=== PATIENT | male | born 1950 | race Caucasian/White ===

== ENCOUNTER 2019-06-22 10:25 | Emergency (ER) | payer MEDICARE, BC ==
[2019-06-22 10:47] VITALS: TEMP 98.1
--- NOTE | 2019-06-22 11:05 | ED ---
Abdominal Pain HPI - General Chief Complaint: Abdominal Pain Stated Complaint: abdominal pain Time Seen by Provider: 06/22/19 10:50 Source: patient, RN notes reviewed Mode of arrival: ambulatory Limitations: no limitations - History of Present Illness Initial Comments: This is a 61-year-old male with a prior history kidney stones who states she's had intermittent episodes of right-sided flank and back pain recently but started getting really severe yesterday. States it was sharp in nature right flank is as well as right lower quadrant and right sided back pain 5-6/10 severity currently is very minimal. He denies any fevers chills nausea vomiting sweats no diarrhea no dysuria no hematuria. He believes it may be similar to his previous kidney stone episodes. No trauma reported. No other modifying factors at this time MD Complaint: abdominal pain, flank pain - Related Data Previous Rx's Medication Instructions Recorded Ibuprofen 800 mg PO Q6HR PRN #20 tablet 06/22/19 Tamsulosin [Flomax] 0.4 mg PO DAILY #7 cap 06/22/19 Allergies Allergy/AdvReac Type Severity Reaction Status Date / Time No Known Allergies Allergy Verified 06/22/19 10:47 Review of Systems ROS Statement: Those systems with pertinent positive or pertinent negative responses have been documented in the HPI. ROS Other: All systems not noted in ROS Statement are negative. Past Medical History Past Medical History: Asthma History of Any Multi-Drug Resistant Organisms: None Reported Past Surgical History: No Surgical Hx Reported Past Psychological History: No Psychological Hx Reported Smoking Status: Former smoker Past Alcohol Use History: None Reported Past Drug Use History: None Reported General Exam - General Exam Comments Initial Comments: This is a well-developed well-nourished awake alert oriented times 3 male Limitations: no limitations General appearance: alert, in no apparent distress Head exam: Present: atraumatic, normocephalic, normal inspection Eye exam: Present: normal appearance, PERRL, EOMI. Absent: scleral icterus, conjunctival injection, periorbital swelling ENT exam: Present: normal exam, mucous membranes moist Neck exam: Present: normal inspection. Absent: tenderness, meningismus, lymphadenopathy Respiratory exam: Present: normal lung sounds bilaterally. Absent: respiratory distress, wheezes, rales, rhonchi, stridor Cardiovascular Exam: Present: regular rate, normal rhythm, normal heart sounds. Absent: systolic murmur, diastolic murmur, rubs, gallop, clicks GI/Abdominal exam: Present: soft, normal bowel sounds. Absent: distended, tenderness, guarding, rebound, rigid, bruit, pulsatile mass, hernia Extremities exam: Present: normal inspection, full ROM, normal capillary refill. Absent: tenderness, pedal edema, joint swelling, calf tenderness Back exam: Present: normal inspection Neurological exam: Present: alert, oriented X3, CN II-XII intact Psychiatric exam: Present: normal affect, normal mood Skin exam: Present: warm, dry, intact, normal color. Absent: rash Course Vital Signs 06/22/19 06/22/19 10:45 12:22 Temperature 98.1 F Pulse Rate 86 67 Respiratory 20 16 Rate Blood Pressure 166/97 146/87 O2 Sat by Pulse 99 99 Oximetry Medical Decision Making - Medical Decision Making Patient remains pain-free at this time I did discuss case with him and also with Dr. Lawrence. Patient will follow-up with urology this week to be discharged after an appointment is set up. The patient is in agreement with this. - Lab Data Result diagrams: 06/22/19 11:04 06/22/19 11:04 Lab Results 06/22/19 06/22/19 06/22/19 Range/Units 11:04 11:04 11:04 WBC 7.9 (3.8-10.6) k/uL RBC 5.18 (4.30-5.90) m/uL Hgb 15.7 (13.0-17.5) gm/dL Hct 48.4 (39.0-53.0) % MCV 93.3 (80.0-100.0) fL MCH 30.4 (25.0-35.0) pg MCHC 32.6 (31.0-37.0) g/dL RDW 12.5 (11.5-15.5) % Plt Count 268 (150-450) k/uL Neutrophils % 63 % Lymphocytes % 25 % Monocytes % 7 % Eosinophils % 2 % Basophils % 1 % Neutrophils # 5.0 (1.3-7.7) k/uL Lymphocytes # 2.0 (1.0-4.8) k/uL Monocytes # 0.5 (0-1.0) k/uL Eosinophils # 0.1 (0-0.7) k/uL Basophils # 0.1 (0-0.2) k/uL Sodium 137 (137-145) mmol/L Potassium 4.3 (3.5-5.1) mmol/L Chloride 105 (98-107) mmol/L Carbon Dioxide 25 (22-30) mmol/L Anion Gap 7 mmol/L BUN 9 (9-20) mg/dL Creatinine 0.62 L (0.66-1.25) mg/dL Est GFR (CKD-EPI)AfAm >90 (>60 ml/min/1.73 sqM) Est GFR (CKD-EPI)NonAf >90 (>60 ml/min/1.73 sqM) Glucose 96 (74-99) mg/dL Plasma Lactic Acid Jose (0.7-2.0) mmol/L Calcium 9.5 (8.4-10.2) mg/dL Total Bilirubin 0.7 (0.2-1.3) mg/dL AST 24 (17-59) U/L ALT 12 (4-49) U/L Alkaline Phosphatase 114 (38-126) U/L Creatine Kinase 86 (55-170) U/L Total Protein 7.5 (6.3-8.2) g/dL Albumin 4.3 (3.5-5.0) g/dL Amylase 68 (30-110) U/L Lipase 61 (23-300) U/L Urine Color Light Yellow Urine Appearance Clear (Clear) Urine pH 7.0 (5.0-8.0) Ur Specific [place] 1.003 (1.001-1.035) Urine Protein Negative (Negative) Urine Glucose (UA) Negative (Negative) Urine Ketones Negative (Negative) Urine Blood Large H (Negative) Urine Nitrite Negative (Negative) Urine Bilirubin Negative (Negative) Urine Urobilinogen <2.0 (<2.0) mg/dL Ur Leukocyte Esterase Negative (Negative) Urine RBC 2 (0-5) /hpf Urine WBC 2 (0-5) /hpf Ur Squamous Epith Cells <1 (0-4) /hpf 06/22/19 Range/Units 11:04 WBC (3.8-10.6) k/uL RBC (4.30-5.90) m/uL Hgb (13.0-17.5) gm/dL Hct (39.0-53.0) % MCV (80.0-100.0) fL MCH (25.0-35.0) pg MCHC (31.0-37.0) g/dL RDW (11.5-15.5) % Plt Count (150-450) k/uL Neutrophils % % Lymphocytes % % Monocytes % % Eosinophils % % Basophils % % Neutrophils # (1.3-7.7) k/uL Lymphocytes # (1.0-4.8) k/uL Monocytes # (0-1.0) k/uL Eosinophils # (0-0.7) k/uL Basophils # (0-0.2) k/uL Sodium (137-145) mmol/L Potassium (3.5-5.1) mmol/L Chloride (98-107) mmol/L Carbon Dioxide (22-30) mmol/L Anion Gap mmol/L BUN (9-20) mg/dL Creatinine (0.66-1.25) mg/dL Est GFR (CKD-EPI)AfAm (>60 ml/min/1.73 sqM) Est GFR (CKD-EPI)NonAf (>60 ml/min/1.73 sqM) Glucose (74-99) mg/dL Plasma Lactic Acid Jose 1.0 (0.7-2.0) mmol/L Calcium (8.4-10.2) mg/dL Total Bilirubin (0.2-1.3) mg/dL AST (17-59) U/L ALT (4-49) U/L Alkaline Phosphatase (38-126) U/L Creatine Kinase (55-170) U/L Total Protein (6.3-8.2) g/dL Albumin (3.5-5.0) g/dL Amylase (30-110) U/L Lipase (23-300) U/L Urine Color Urine Appearance (Clear) Urine pH (5.0-8.0) Ur Specific [place] (1.001-1.035) Urine Protein (Negative) Urine Glucose (UA) (Negative) Urine Ketones (Negative) Urine Blood (Negative) Urine Nitrite (Negative) Urine Bilirubin (Negative) Urine Urobilinogen (<2.0) mg/dL Ur Leukocyte Esterase (Negative) Urine RBC (0-5) /hpf Urine WBC (0-5) /hpf Ur Squamous Epith Cells (0-4) /hpf - Radiology Data Radiology results: report reviewed (I did review the imaging and report evidence of 1.3 cm calculus in the renal pelvis with evidence of obstruction and hydronephrosis some stranding noted. Evidence of kidney stones in the bladder), image reviewed Disposition Clinical Impression: Kidney stone on right side, Renal colic on right side, Hematuria Disposition: HOME SELF-CARE Condition: Good Instructions (If sedation given, give patient instructions): Kidney Stones (ED), Flank Pain (ED), Renal Colic (ED) Additional Instructions: Follow-up with Dr. Lawrence as directed. Medication prescriptions sent to your preferred [facility] pharmacy Prescriptions: Tamsulosin [Flomax] 0.4 mg PO DAILY #7 cap Ibuprofen 800 mg PO Q6HR PRN #20 tablet PRN Reason: Pain Is patient prescribed a controlled substance at d/c from ED?: No Referrals: None,Stated [REFERRING] - 1-2 days Foster Lawrence MD [STAFF PHYSICIAN] - 1-2 days
[2019-06-22 11:43] LABS: Appearance,Urine Clear (Clear); Bilirubin,Urine Negative (Negative); Blood,Urine Large (Negative); Color,Urine Light Yellow; Glucose,Urine (UA) Negative (Negative); Ketones,Urine Negative (Negative); Leukocyte Esterase,Urine Negative (Negative); Nitrite,Urine Negative (Negative); Protein,Urine Negative (Negative); RBC,Urine 2 /hpf (0-5); Specific Gravity,Urine 1.003 (1.001-1.035); Squamous Epithelial Cell,Urine <1 /hpf (0-4); Urobilinogen,Urine <2.0 mg/dL (<2.0); WBC,Urine 2 /hpf (0-5)
[2019-06-22 11:45] LABS: Basophils # (A) 0.1 k/uL (0-0.2); Basophils % (A) 1 %; Eosinophils # (A) 0.1 k/uL (0-0.7); Eosinophils % (A) 2 %; HCT 48.4 % (39.0-53.0); HGB 15.7 gm/dL (13.0-17.5); Lymphocytes % (A) 25 %; MCH 30.4 pg (25.0-35.0); MCHC 32.6 g/dL (31.0-37.0); MCV 93.3 fL (80.0-100.0); Mean Platelet Volume 7.4; Monocytes # (A) 0.5 k/uL (0-1.0); Monocytes % (A) 7 %; Neutrophils % (A) 63 %; Platelet Count 268 k/uL (150-450); RBC 5.18 m/uL (4.30-5.90); RDW 12.5 % (11.5-15.5); WBC 7.9 k/uL (3.8-10.6)
--- NOTE | 2019-06-22 11:50 | CT ---
EXAMINATION TYPE: CT abdomen pelvis wo con DATE OF EXAM: 06/22/2019 COMPARISON: None HISTORY: Flank pain, kidney stone suspected CT DLP: 791 mGycm Automated exposure control for dose reduction was used. TECHNIQUE: Helical acquisition of images was performed from the lung bases through the pelvis. FINDINGS: LUNG BASES: Subpleural linear reticular opacities are likely on the basis of subsegmental atelectasis . LIVER/GB: Unremarkable unenhanced morphology. No radiopaque calculi in the gallbladder. PANCREAS: No main pancreatic ductal dilatation. SPLEEN: No splenomegaly. ADRENALS: No significant abnormality is seen. KIDNEYS: Within the right renal pelvis there is a 1.3 cm obstructing calculus. There is dilatation of the right renal pelvis with surrounding fat stranding and mild blunting of the right calyces. Additi onally within the incompletely distended urinary bladder there are 2 adjacent urinary bladder calculi measuring 1.3 and 1.7 cm. There is nodular impression on the urinary bladder by an enlarged and hete rogenous prostate gland. Coronal imaging demonstrates a 2 mm nonobstructing left lower pole renal gloria culus on image 51. FREE AIR: No free air is visualized ADENOPATHY: Limited without intravenous contrast however no greater than 1 cm short axis lymph node is seen in the abdomen or pelvis. OSSEOUS STRUCTURES: Moderate multilevel disc disease. BOWEL: Multiple colonic diverticula are seen without colonic fat stranding. No dilated large or smal l bowel. OTHER: Dictation of the infrarenal abdominal aorta measuring up to 2.6 cm with moderate atheromatous changes of the abdominal aorta and its branches. IMPRESSION: 1. OBSTRUCTING 1.3 CM CALCULUS AT THE RIGHT RENAL PELVIS CREATING DILATATION OF THE RIGHT RENAL PELVI S AND MILD HYDRONEPHROSIS. THERE IS ALSO MINIMAL UROEPITHELIAL INFLAMMATORY FAT STRANDING OF THE WILLIAM L PELVIS. 2. CALCULI IN THE URINARY BLADDER NEAR THE LEFT URETEROVESICULAR JUNCTION MEASURING 1.3 AND 1.7 CM. N O LEFT-SIDED HYDRONEPHROSIS. 3. PUNCTATE NONOBSTRUCTING LEFT LOWER POLE NONOBSTRUCTING RENAL CALCULUS. 4. COLONIC DIVERTICULOSIS WITHOUT EVIDENCE OF OF ACUTE DIVERTICULITIS.
[2019-06-22 11:51] LABS: ALT 12 U/L (4-49); AST 24 U/L (17-59); African American GFR (CKD) >90 (>60 ml/min/1.73 sqM); Albumin 4.3 g/dL (3.5-5.0); Alkaline Phosphatase 114 U/L (38-126); Amylase 68 U/L (30-110); Anion Gap 7 mmol/L; Blood Urea Nitrogen 9 mg/dL (9-20); Calcium 9.5 mg/dL (8.4-10.2); Carbon Dioxide 25 mmol/L (22-30); Chloride 105 mmol/L (98-107); Creatine Kinase 86 U/L (55-170); Glucose 96 mg/dL (74-99); Non-African American GFR(CKD) >90 (>60 ml/min/1.73 sqM); Potassium 4.3 mmol/L (3.5-5.1); Sodium 137 mmol/L (137-145); Total Bilirubin 0.7 mg/dL (0.2-1.3); Total Protein 7.5 g/dL (6.3-8.2)
[2019-06-22 12:22] VITALS: BP 146/87; PULSE 67; RESP 16
== END 2019-06-22 13:08 | disposition home or self-care (01) ==
LOC: EC 10:25
DX: N13.2 Hydronephrosis with renal and ureteral calculous obstruction (principal); Z87.891 Personal history of nicotine dependence
CPT/HCPCS: 36415; 74176; 80053; 81001; 82150; 82550; 83605; 83690; 85025; 99284

== ENCOUNTER → 2019-06-23 | Outpatient (CLI) | payer MEDICARE, BC ==
--- NOTE | 2019-06-23 12:20 | XR ---
EXAMINATION TYPE: XR KUB DATE OF EXAM: 06/23/2019 HISTORY: Pain Comparison: None.Single KUB is submitted for interpretation. Findings: Right renal calculi: None Visualized. Right ureteral calculi: 1.5 cm calculus in the region of the right UPJ. Left renal calculi: None Visualized. Left ureteral calculi: None Visualized. Pelvic calcifications: Calcifications overlying the urinary bladder measuring about 1.5 and 2.0 cm r espectively. Bowel gas pattern is unremarkable. No free air. No mass effects. IMPRESSION: 1. 1.5 cm calculus in the region of the right UPJ. 2. Urinary bladder calcifications.
== END | disposition home or self-care (01) ==
LOC: RADXRMAIN 11:47
PROVIDERS: ATTEND Urology
DX: N20.0 Calculus of kidney (principal); N32.89 Other specified disorders of bladder
CPT/HCPCS: 74018

== ENCOUNTER → 2019-07-02 | Outpatient (CLI) | payer MEDICARE, BC | END | disposition home or self-care (01) | LOC: LABWHC1 09:55 | PROVIDERS: ATTEND Urology | DX: Z11.59 Encounter for screening for other viral diseases (principal) | CPT/HCPCS: 87635 ==

== ENCOUNTER 2019-07-06 22:06 | Emergency (ER) | payer MEDICARE, BC ==
[2019-07-06] MEDS ORDERED: ONDANSETRON 4 MG/2 ML VIAL IVP STA (22:48)
[2019-07-06] MEDS ORDERED: SODIUM CHLORIDE 0.9% 1,000 ML IV STA (22:48)
[2019-07-06] MEDS ORDERED: HYDROmorphone 1 MG/ML 1 ML SYRINGE IVP STA (22:49)
[2019-07-06 23:07] LABS: Basophils % (A) 0 %; Eosinophils # (A) 0.1 k/uL (0-0.7); Eosinophils % (A) 1 %; HCT 47.1 % (39.0-53.0); HGB 15.3 gm/dL (13.0-17.5); Lymphocytes # (A) 1.5 k/uL (1.0-4.8); Lymphocytes % (A) 10 %; MCH 29.8 pg (25.0-35.0); MCHC 32.5 g/dL (31.0-37.0); MCV 91.7 fL (80.0-100.0); Mean Platelet Volume 7.4; Monocytes # (A) 0.7 k/uL (0-1.0); Monocytes % (A) 5 %; Neutrophils # (A) 12.8 k/uL (1.3-7.7); Neutrophils % (A) 84 %; Platelet Count 261 k/uL (150-450); RBC 5.14 m/uL (4.30-5.90); RDW 12.3 % (11.5-15.5); WBC 15.2 k/uL (3.8-10.6)
[2019-07-06 23:17] LABS: ALT 18 U/L (4-49); AST 26 U/L (17-59); African American GFR (CKD) >90 (>60 ml/min/1.73 sqM); Albumin 4.2 g/dL (3.5-5.0); Alkaline Phosphatase 131 U/L (38-126); Anion Gap 11 mmol/L; Blood Urea Nitrogen 12 mg/dL (9-20); Calcium 9.6 mg/dL (8.4-10.2); Carbon Dioxide 23 mmol/L (22-30); Chloride 101 mmol/L (98-107); Glucose 134 mg/dL (74-99); Non-African American GFR(CKD) >90 (>60 ml/min/1.73 sqM); Potassium 4.1 mmol/L (3.5-5.1); Sodium 135 mmol/L (137-145); Total Bilirubin 0.3 mg/dL (0.2-1.3); Total Protein 7.3 g/dL (6.3-8.2)
[2019-07-06 23:38] LABS: Appearance,Urine Clear (Clear); Bilirubin,Urine Negative (Negative); Blood,Urine Large (Negative); Color,Urine Yellow; Glucose,Urine (UA) Negative (Negative); Ketones,Urine Negative (Negative); Leukocyte Esterase,Urine Negative (Negative); Mucus,Urine Rare /hpf; Nitrite,Urine Negative (Negative); PH, Urine 6.5 (5.0-8.0); Protein,Urine 1+ (Negative); RBC,Urine >182 /hpf (0-5); Specific Gravity,Urine 1.016 (1.001-1.035); Squamous Epithelial Cell,Urine <1 /hpf (0-4); Urobilinogen,Urine <2.0 mg/dL (<2.0); WBC,Urine 5 /hpf (0-5)
--- NOTE | 2019-07-06 23:42 | ED ---
Male Urogenital HPI - General Chief complaint: Urogenital Stated complaint: Pain following lithotripsy Time Seen by Provider: 07/06/19 22:21 Source: patient Mode of arrival: wheelchair Limitations: no limitations - History of Present Illness Initial comments: Patient is 69-year-old male presenting to the emergency room with a chief complaint of abdominal pain. Patient reports today she had lithotripsy at that he was diagnosed with a kidney stone. Patient reports after discharge she has developed right lower back pain that radiates across the back. Patient also reports right flank and right-sided abdominal pain. Patient reports developing gross hematuria after procedure which gradually began to improve. Patient reports nausea with multiple episodes of nonbilious, nonbloody vomiting. Denies any chest pain shortness of breath headaches weakness or lightheadedness. Denies taking any other medications - Related Data Previous Rx's Medication Instructions Recorded Ibuprofen 800 mg PO Q6HR PRN #20 tablet 06/22/19 Ibuprofen 800 mg PO Q8H PRN #30 tab 07/06/19 Tamsulosin [Flomax] 0.4 mg PO DAILY #10 cap 07/06/19 Allergies Allergy/AdvReac Type Severity Reaction Status Date / Time No Known Allergies Allergy Verified 07/06/19 22:10 Review of Systems ROS Statement: Those systems with pertinent positive or pertinent negative responses have been documented in the HPI. ROS Other: All systems not noted in ROS Statement are negative. Past Medical History Past Medical History: Asthma History of Any Multi-Drug Resistant Organisms: None Reported Past Surgical History: No Surgical Hx Reported Additional Past Surgical History / Comment(s): lithotripsy Past Psychological History: No Psychological Hx Reported Smoking Status: Former smoker Past Alcohol Use History: None Reported Past Drug Use History: None Reported General Exam Limitations: no limitations Course Vital Signs 07/06/19 22:08 Temperature 97.6 F Pulse Rate 76 Respiratory 18 Rate Blood Pressure 185/90 O2 Sat by Pulse 95 Oximetry Medical Decision Making - Medical Decision Making Patient is 69-year-old male presenting to the emergency department with a chief complaint of abdominal pain. Patient had a lithotripsy performed today by . Exam patient does have right CVA tenderness along with right flank and right-sided abdominal pain. Patient was given IV fluids, antiemetics and analgesia. CBC shows a cytosis of 15.2 K. I suspect is secondary to the multiple vomiting episodes. UA shows elbow to rule out blood cells. On reevaluation patient reports the nausea has resolved. He states the pain is also improved. Dr. Owen spoke with Dr. Chung who agreed the patient to be discharged if the pain is under control. Patient to follow-up in the office. Return parameters thoroughly discussed with patient is understanding and agreeable. Case discussed with physician. - Lab Data Result diagrams: 07/06/19 22:31 07/06/19 22: Lab Results 07/06/19 07/06/19 07/06/19 Range/Units 22:31 22: 23:06 WBC 15.2 H (3.8-10.6) k/uL RBC 5.14 (4.30-5.90) m/uL Hgb 15.3 (13.0-17.5) gm/dL Hct 47.1 (39.0-53.0) % MCV 91.7 (80.0-100.0) fL MCH 29.8 (25.0-35.0) pg MCHC 32.5 (31.0-37.0) g/dL RDW 12.3 (11.5-15.5) % Plt Count 261 (150-450) k/uL Neutrophils % 84 % Lymphocytes % 10 % Monocytes % 5 % Eosinophils % 1 % Basophils % 0 % Neutrophils # 12.8 H (1.3-7.7) k/uL Lymphocytes # 1.5 (1.0-4.8) k/uL Monocytes # 0.7 (0-1.0) k/uL Eosinophils # 0.1 (0-0.7) k/uL Basophils # 0.0 (0-0.2) k/uL Sodium 135 L (137-145) mmol/L Potassium 4.1 (3.5-5.1) mmol/L Chloride 101 (98-107) mmol/L Carbon Dioxide 23 (22-30) mmol/L Anion Gap 11 mmol/L BUN 12 (9-20) mg/dL Creatinine 0.66 (0.66-1.25) mg/dL Est GFR (CKD-EPI)AfAm >90 (>60 ml/min/1.73 sqM) Est GFR (CKD-EPI)NonAf >90 (>60 ml/min/1.73 sqM) Glucose 134 H (74-99) mg/dL Calcium 9.6 (8.4-10.2) mg/dL Total Bilirubin 0.3 (0.2-1.3) mg/dL AST 26 (17-59) U/L ALT 18 (4-49) U/L Alkaline Phosphatase 131 H (38-126) U/L Total Protein 7.3 (6.3-8.2) g/dL Albumin 4.2 (3.5-5.0) g/dL Urine Color Yellow Urine Appearance Clear (Clear) Urine pH 6.5 (5.0-8.0) Ur Specific [place] 1.016 (1.001-1.035) Urine Protein 1+ H (Negative) Urine Glucose (UA) Negative (Negative) Urine Ketones Negative (Negative) Urine Blood Large H (Negative) Urine Nitrite Negative (Negative) Urine Bilirubin Negative (Negative) Urine Urobilinogen <2.0 (<2.0) mg/dL Ur Leukocyte Esterase Negative (Negative) Urine RBC >182 H (0-5) /hpf Urine WBC 5 (0-5) /hpf Ur Squamous Epith Cells <1 (0-4) /hpf Urine Mucus Rare H (None) /hpf Disposition Clinical Impression: Abdominal pain, Nausea & vomiting Disposition: HOME SELF-CARE Condition: Stable Instructions (If sedation given, give patient instructions): Abdominal Pain (ED) Additional Instructions: Do not drive or operative heavy machinery when taking medication. Make sure to drink lots of fluids. Follow-up with your urologist. Return to emergency department if symptoms worsen. Is patient prescribed a controlled substance at d/c from ED?: No Referrals: Romeo Cabezas MD [Primary Care Provider] - 1-2 days Time of Disposition: 00:28
[2019-07-07] MEDS ORDERED: ACET/COD 300 MG/30 MG STARTER PACK 6 TAB BTL PO STA (00:25)
[2019-07-07 00:28] VITALS: BP 163/96; PULSE 74; RESP 16; TEMP 98.3
== END 2019-07-07 01:43 | disposition home or self-care (01) ==
LOC: EC 22:06
DX: R10.9 Unspecified abdominal pain (principal); R11.2 Nausea with vomiting, unspecified; M54.5 Low back pain; Z87.891 Personal history of nicotine dependence
CPT/HCPCS: 36415; 80053; 85025; 81001; 99284; 96374; 96375; 96361 ×3; J2405; J1170

== ENCOUNTER → 2019-07-06 | Day surgery (SDC) | payer MEDICARE, BC ==
--- NOTE | 2019-07-02 16:41 | P.GSHP ---
History of Present Illness H&P Date: 07/02/19 Chief Complaint: Right renal calculus The patient is a 69-year-old male with a history of right flank pain and right lower quadrant pain which has been present for several weeks. In retrospect the patient feels he may have had some low-grade pain in this region for up to one year. His pain increased in severity and he was seen in the [facility] emergency room on 06/21. CT scan of the abdomen and pelvis identified an 8 x 11 mm calculus at the right ureteropelvic junction and a 1-2 mm calculus in the lower pole of the right kidney. In addition two bladder calculi measuring 13 and 19 mm in diameter were present. Patient was seen by me on June 22. I reviewed the CT scan with him. It was my feeling that the patient's intermittent pain was most likely related to intermittent obstruction at the right ureteropelvic junction from the 8 x 11 mm calculus. I reviewed treatment options including ureteroscopy with lithotripsy, ESWL and percutaneous nephrostolithotomy. Patient wishes to undergo ESWL for treatment of the calculus and is admitted for this purpose. He is aware that he will eventually require cystolithotripsy for removal of his two bladder calculi. - Constitutional Constitutional: Denies chills, Denies fever - EENT Ears, nose, mouth and throat: Denies vertigo - Cardiovascular Cardiovascular: Denies chest pain, Denies high blood pressure, Denies palpitations, Denies shortness of breath, Denies syncope - Gastrointestinal Gastrointestinal: Reports as per HPI, Reports abdominal pain - Genitourinary (Male) Genitourinary: Denies dysuria, Denies hematuria Past Medical History Past Medical History: Asthma Additional Past Medical History / Comment(s): Heart murmur secondary to noncritical aortic stenosis. History of Any Multi-Drug Resistant Organisms: None Reported Past Surgical History: No Surgical Hx Reported Additional Past Surgical History / Comment(s): Cystoscopy with retrograde pyelograms, colonoscopy Past Psychological History: No Psychological Hx Reported Smoking Status: Former smoker Past Alcohol Use History: None Reported Past Drug Use History: None Reported Medications and Allergies Home Medications Medication Instructions Recorded Confirmed Type Ibuprofen 800 mg PO Q6HR PRN #20 tablet 06/22/19 Rx Tamsulosin [Flomax] 0.4 mg PO DAILY #7 cap 06/22/19 Rx Allergies Allergy/AdvReac Type Severity Reaction Status Date / Time No Known Allergies Allergy Verified 06/22/19 10:47 Surgical - Exam - General well developed, well nourished, no distress - Neck no masses, no no bruits, no lymphadectomy - Respiratory normal expansion, clear to auscultation - Cardiovascular Rhythm: regular Abnormal Heart Sounds: systolic murmur - Abdomen Abdomen: soft, non tender, no organomegaly Hernia: none - Genitourinary normal penis with no external lesions, testicles non-tender Assessment and Plan (1) Kidney stone on right side Narrative/Plan: The patient will undergo ESWL treatment of his right renal calculus performed by Dr. Chung under intravenous sedation. He is aware of the operative risks which include anesthesia, hematuria, intrarenal or perinephric bleeding, inability to fragment the calculus and ureteral obstruction secondary to calculus fragments which may require an additional procedure for removal. He is also aware that he will eventually require cystolithotripsy under anesthesia for treatment of his bladder calculi but this will be deferred until it has been determined as to whether or not his right renal calculus has fragmented adequately. Status: Acute Code(s): N20.0 - CALCULUS OF KIDNEY SNOMED Code(s): 99995603
[2019-07-03 11:10] VITALS: BMI 29.5
[~2019-07-06] MED LIST: DEXAMETHASONE SOD PHOSPHATE 10 MG/ML 1 ML VIAL IV ONE; HYDROmorphone 0.5 MG/0.5 ML SYRINGE IVP PRN; LACTATED RINGERS 1,000 ML IV SCH; LIDOCAINE 1% (10MG/ML) FOR IV START IV ONE; MIDAZOLAM 2 MG/2 ML VIAL ONE; ONDANSETRON 4 MG/2 ML VIAL IVP ONE; PROPOFOL 10 MG/ML 20 ML VIAL IV ONE; Pre Op ABX Message 1 EACH MISC MISCELLANE ONE; fentaNYL (PF) 50 MCG/ML 2 ML AMP ONE
--- NOTE | 2019-07-06 07:47 | XR ---
EXAMINATION TYPE: XR KUB DATE OF EXAM: 07/06/2019 6:53 AM CLINICAL HISTORY: Kidney stones. TECHNIQUE: Two supine KUB images of the abdomen are obtained. COMPARISON: CT abdomen and pelvis 2 weeks ago. Abdominal x-ray June 22, 2017 FINDINGS: Persistent large 14 to 15 mm right renal calculus at L2 level. Large intraluminal calculi r edemonstrated and bladder over the pelvis up to 17 mm. Prominence of fecal material throughout the colon. Slight scoliotic curvature redemonstrated. IMPRESSION: Stable large right renal and 2 large bladder calculi.
[2019-07-06 07:49] VITALS: TEMP 97.2
--- NOTE | 2019-07-06 09:27 | P.OP ---
Date of Procedure: 07/06/19 Preoperative Diagnosis: right sided ureteral stone Postoperative Diagnosis: same Procedure(s) Performed: right ESWL Implants: none Anesthesia: MAC Surgeon: Tone Chung Estimated Blood Loss (ml): 0 Pathology: none sent Condition: stable Disposition: PACU Indications for Procedure: Mr Randall is a 69 year-old female with a 1.3 cm right-sided UPJ stone. Options of ESWL, ureteroscopy were discussed with her. She agreed to proceed ESWL. Discussed with her the risk of bleeding infection or renal hematoma. Discussed the potential for needing repeated treatment, and potential that ESWL will not be effective. She understood all the risk and agreed to proceed Operative Findings: right sided raqiopaque stone, good fragmenation Description of Procedure: The patient was taken to the operating room and placed on the Dornier Compact Delta II lithotripter in the supine position. The calculus was seen on biplanar fluoroscopy. Once the patient was properly positioned and sedated, lithotripsy was performed. The energy level was gradually increased per protocol, to an energy level of 4. After 200 shocks were administered, a 1 minute pause was instituted per protocol. A total of 2500shocks were given at a rate of 90 shocks per minute. Fluoroscopy was utilized at a minimum to ensure proper positioning and determine the treatment status. The appearance of the calculus had change, suggesting of good fragmentation has occurred. patient tolerated procedure well and was taken to PACU in stable condition.
[2019-07-06 11:10] VITALS: BP 124/70; PULSE 69; RESP 18
== END | disposition home or self-care (01) ==
LOC: ORWHC2ENDO 06:39
PROVIDERS: ATTEND Urology
DX: N20.2 Calculus of kidney with calculus of ureter (principal); N21.0 Calculus in bladder; J45.909 Unspecified asthma, uncomplicated; N40.0 Benign prostatic hyperplasia without lower urinary tract symptoms; E78.2 Mixed hyperlipidemia; E03.9 Hypothyroidism, unspecified; M19.90 Unspecified osteoarthritis, unspecified site; Z87.442 Personal history of urinary calculi; Z87.891 Personal history of nicotine dependence; Z79.899 Other long term (current) drug therapy; Z91.030 Bee allergy status
CPT/HCPCS: 93005; 74018; 50590; J2250; J1100; J2405; J3010; J2704

== ENCOUNTER → 2019-07-15 | Outpatient (CLI) | payer MEDICARE, BC ==
--- NOTE | 2019-07-15 11:31 | XR ---
EXAMINATION TYPE: XR KUB DATE OF EXAM: 07/15/2019 HISTORY: Pain Comparison: 07/06/2019 Single KUB is submitted for interpretation. Findings: Right renal calculi: Previously noted the large calculus overlying the region of the right UPJ is no longer visualized and measured 1.4 cm at that time. Right ureteral calculi: None Visualized. Left renal calculi: None Visualized. Left ureteral calculi: None Visualized. Pelvic calcifications: 2 large calcifications are redemonstrated within the urinary bladder measurin g 1.9 cm and 1.5 cm respectively. Bowel gas pattern is unremarkable. No free air. No mass effects. IMPRESSION: 1. Previously noted the large calculus overlying the region of the right UPJ is no longer visualized . 2. Urinary bladder calcifications are redemonstrated.
== END | disposition home or self-care (01) ==
LOC: RADXRMAIN 10:58
PROVIDERS: ATTEND Urology
DX: N32.89 Other specified disorders of bladder (principal); Z98.890 Other specified postprocedural states
CPT/HCPCS: 74018

== ENCOUNTER 2019-12-10 05:44 | Day surgery (SDC) | payer MEDICARE, BC ==
[2019-12-07 11:51] VITALS: BMI 30.4
--- NOTE | 2019-12-09 16:39 | HP ---
HISTORY AND PHYSICAL DATE OF SURGERY: 12/10/2019 Stevo Randall is a 69-year-old gentleman seen with symptomatic left knee osteoarthritis. We discussed options for treatment. He elected to proceed with left total knee arthroplasty. Consent regarding the procedure was obtained. Clearance was provided by Dr. Cabezas's office. PAST MEDICAL HISTORY: Noncontributory. PAST SURGICAL HISTORY: Noncontributory. DAILY MEDICATIONS: Flomax. ALLERGIES: None. SOCIAL HISTORY: Denies tobacco use. PHYSICAL EVALUATION OF THE LEFT KNEE: Range of motion is -3 to 115. He has a [id number] effusion. Medial joint line tenderness. Crepitus medial patellofemoral compartments range of motion. Pain with patellofemoral compression. Ligaments are stable. Hip rotation is without pain. His distal neurovascular exam is intact. RADIOGRAPHS OF THE LEFT KNEE: Reveal severe osteoarthritic changes. IMPRESSION: Left knee osteoarthritis. PLAN: Left total knee arthroplasty. MMODL / IJN: [id number] /
[~2019-12-10 05:44] MED LIST changes: +ACETAMINOPHEN TAB 500 MG TAB PO ONE; -LIDOCAINE 1% (10MG/ML) FOR IV START IV ONE; +MELOXICAM 7.5 MG TAB PO ONE; +MIDAZOLAM 2 MG/2 ML VIAL IV PRN; -MIDAZOLAM 2 MG/2 ML VIAL ONE; -PROPOFOL 10 MG/ML 20 ML VIAL IV ONE; -Pre Op ABX Message 1 EACH MISC MISCELLANE ONE; +TRANEXAMIC ACID 1,000 MG in SODIUM CHLORIDE 0.9% 100 ML IVPB ONE; -fentaNYL (PF) 50 MCG/ML 2 ML AMP ONE
[2019-12-10] MEDS ORDERED: ROPIVACAINE 246.25 MG, EPINEPHrine 0.5 MG, KETOROLAC 30 MG, cloNIDine HCL/PF 80 MCG, WA... MISCELLANE ONE ×5 (06:00)
[2019-12-10 06:37] VITALS: TEMP 98.1
[2019-12-10] MEDS ORDERED: ROPIVACAINE 0.2%-NS ON-Q PUMP 1,090 MG, EMPTY PAIN BALL 1 EACH MISCELLANE PRN (07:18)
--- NOTE | 2019-12-10 07:18 | P.ANPRN ---
Procedure Note - Anesthesia - Nerve Block Performed Left Adductor Canal Infusion Time Out Performed: Yes ([id number]) Date of Procedure: 12/10/19 Procedure Start Time: 06:51 Procedure Stop Time: 06:58 Location of Patient: PreOp Indication: Acute Post-Operative Pain, Analgesia, Requested by Surgeon Specifically requested for management of pain by DrMorris: Anthony Menendez Sedation Type: Sedate with meaningful contact maintained Preparation: Sterile Prep, Sterile Dressing Position: Supine Catheter: Indwelling Needle Types: Pajunk Needle Gauge: 18 Ultrasound used to visualize needle placement: Yes Ultrasound used to observe medication spread: Yes Injectate: 0.5% Ropivacaine (see comment for volume) (20 ML) Blood Aspirated: No Pain Paresthesia on Injection Noted: No Resistance on Injection: Normal Image Stored and Saved: Yes Events: Uneventful and Well Tolerated
[2019-12-10] MEDS ORDERED: fentaNYL (PF) 50 MCG/ML 2 ML AMP ONE (07:24)
[2019-12-10] MEDS ORDERED: HYDROmorphone (PF) 1 MG/ML ONE (07:24)
[2019-12-10] MEDS ORDERED: PROPOFOL 10 MG/ML 20 ML VIAL IV ONE (07:24)
[2019-12-10] MEDS ORDERED: MIDAZOLAM 2 MG/2 ML VIAL ONE (07:24)
[2019-12-10] MEDS ORDERED: TRANEXAMIC ACID 1,000 MG/10 ML VIAL ONE (07:24)
[2019-12-10] MEDS ORDERED: SUCCINYLCHOLINE CHLORIDE 100 MG/5 ML SYR IV ONE (07:24)
[2019-12-10] MEDS ORDERED: SODIUM CHLORIDE 0.9% 100 ML BAG ONE (07:24)
[2019-12-10] MEDS ORDERED: LIDOCAINE 1% INJ 10MG/ML (20 ML MDV) ONE (07:24)
[2019-12-10] MEDS ORDERED: ceFAZolin 1,000 MG in SODIUM CHLORIDE 0.9% 1,000 ML IRRIGATION ONE (08:03)
[2019-12-10] MEDS ORDERED: LACTATED RINGERS 1,000 ML IV ONE ×2 (08:43→09:30)
--- NOTE | 2019-12-10 09:29 | P.OP ---
Date of Procedure: 12/10/19 Preoperative Diagnosis: Left knee osteoarthritis Postoperative Diagnosis: Left knee osteoarthritis Procedure(s) Performed: Left total knee arthroplasty Implants: 1. Depuy attune size 8 left cruciate retaining cemented femur 2. Depuy attune size 8 fixed bearing cemented tibial baseplate 3. Depuy attune size 8 fixed bearing cruciate retaining 10 mm polyethylene tibial insert 4. Depuy attune 41 mm all polyethylene cemented patella Anesthesia: GETA, regional (Adductor canal catheter), local Surgeon: Anthony Menendez Crawler Dragline Operator #1: Nito Toure Estimated Blood Loss (ml): 50 Pathology: other (Bone) Condition: stable Disposition: PACU Indications for Procedure: 69-year-old patient seen with symptomatic left knee osteoarthritis. After options for treatment were discussed, he elected to proceed with total knee arthroplasty. Operative Findings: See description of procedure Description of Procedure: Patient was taken to the operative suite after having an adductor canal catheter placed by the department of anesthesia. Patient underwent a general anesthetic by the department of anesthesia. Patient was given preoperative IV intake antibiotics and TXA. A well-padded tourniquet was placed about the left lower extremity. The lower extremity was then prepped and draped in the normal sterile orthopedic fashion. The extremity was elevated, a tourniquet was i nsufflated to 300. A standard anterior incision was made sharply through skin. Dissection was taken down through the subcutaneous soft tissues down to the extensor mechanism. A medial arthrotomy was performed, patella was everted and knee was flexed. There was advanced osteoarthritis noted. I introduced my distal intramedullary femoral drill. I then introduced the distal femoral cutting jig. Darvin COWAN secured the cutting jig with 2 pins. I held retractors in position while Darvin COWAN performed the distal femoral resection through the guide area we now removed her distal femoral cutting guide. We now placed our 4-in-1 femoral cutting block and positioned and it was secured with 2 pins by Darvin COWAN while I held the block in position. The distal femoral finishing was now completed. A proximal tibial cutting guide was positioned. I held the guide in the appropriate position with both hands well Darvin COWAN inserted stabilizing pins into the guide. Proximal tibial cut was made. We now placed a trial femoral component into position, along with an appropriate size tibial tray and insert. We now took the knee through range of motion and had full extension good flexion and good overall soft tissue balance noted. The patella was everted and stabilized with 2 towel clips held by Darvin COWAN while I performed a flush with patellar quad tendon utilizing a fresh sawblade. We templated the patella, appropriate drill holes were made. An appropriate trial patella was positioned, knee was taken through full range of motion with the patella tracking very nicely. The trial patella was removed. Drill holes were made through the femoral component. All trial components were removed after marking off the appropriate rotation of the tibia. Retractors wer e now positioned along the proximal tibia. An appropriate keel punch was made with the appropriate size tibial guide by myself on Darvin COWAN assisted by holding retractors. At this point appropriate size implants were chosen and opened. The joint was irrigated copiously with pulse lavage mechanical irrigation. The posterior capsule was infiltrated with local analgesic. The wound was irrigated with pulse lavage mechanical irrigation. We mixed antibiotic methylmethacrylate. We placed the knee into flexion. We placed multiple retractors assisted by Darvin COWAN to expose the proximal tibia. Once the methyl methacrylate was ready, the tibial component was cemented into place removing any excess methylmethacrylate form by both myself and Darvin COWAN. The femoral component was cemented into place removing the removing any excess methylmethacrylate performed by both myself and Darvin COWAN. We then inserted the appropriate size polyethylene tibial insert. We made sure that it was locked into position. We took the knee into full extension, and then back in a flexion making sure we had removed any excess methylmethacrylate. The patellar component was then cemented down and secured with clamp. Excess methylmethacrylate removed. We kept the knee in full extension, patellar clamp in position until methylmethacrylate had hardened. Once it had hardened the patellar clamp was removed. The knee was taken through full range of motion. The patella tracked nicely. There was good soft tissue balancing. The tourniquet was now released. Additional hemostasis was achieved via electrocautery. A second gram of TXA was given. The wound again was irrigated with pulse lavage mechanical irrigation. The superficial soft tissues were infiltrated local analgesic. The extensor mechanism was repaired with Vicryl. We checked the repair with range of motion and it was stable. The subcutaneous soft tissues were repaired with Vicryl in layers. The skin was approximated with pernio/Dermabond. Sterile dressings were applied followed by loose web roll and Efren bandage. The patient was transferred to a bed, and taken to recovery in stable and satisfactory condition. Darvin COWAN assisted with this complex procedure.
[2019-12-10] MEDS ORDERED: HYDROmorphone 0.5 MG/0.5 ML SYRINGE IVP PRN ×3 (09:30)
[2019-12-10] MEDS ORDERED: ONDANSETRON 4 MG/2 ML VIAL IVP PRN (09:30)
[2019-12-10] MEDS ORDERED: HYDROcodone/APAP 5-325MG 1 EACH TAB PO PRN ×2 (09:30)
[2019-12-10] MEDS ORDERED: NALOXONE 0.4 MG/ML 1 ML VIAL IV PRN (09:30)
--- NOTE | 2019-12-10 10:49 | XR ---
EXAMINATION TYPE: XR knee limited LT DATE OF EXAM: 12/10/2019 COMPARISON: NONE TECHNIQUE: Two views submitted HISTORY: Post op FINDINGS: There is a prosthetic knee in near anatomic alignment. There is soft tissue edema and emphysema. IMPRESSION: 1. Postoperative change. Appears in near-anatomic alignment
[2019-12-10] MEDS ORDERED: HYDROcodone/APAP 5-325MG 1 EACH TAB PO ONE (11:00)
[2019-12-10 14:14] VITALS: BP 149/90; PULSE 66; RESP 15
== END 2019-12-10 14:20 | disposition home health service (06) ==
LOC: OR 05:44
PROVIDERS: ATTEND Orthopaedic Surgery
DX: M17.12 Unilateral primary osteoarthritis, left knee (principal); Z87.442 Personal history of urinary calculi; Z98.890 Other specified postprocedural states; R01.1 Cardiac murmur, unspecified; I35.0 Nonrheumatic aortic (valve) stenosis; Z79.899 Other long term (current) drug therapy
CPT/HCPCS: 97116; 97161; 64448; 76942; 88300; 73560; 27447; C1776; C1713; J2250; J0171; J1100; J0690 ×2; J2405; J2001; J3010; J1885; J1170 ×2; J2795 ×2; J0330; J2704; J0735

== ENCOUNTER → 2019-12-25 | Outpatient (CLI) | payer MEDICARE, BC ==
--- NOTE | 2019-12-25 15:33 | US ---
EXAMINATION TYPE: US venous doppler duplex LE LT DATE OF EXAM: 12/25/2019 3:15 PM COMPARISON: NONE CLINICAL HISTORY: M79.662, pain R22.42 swelling. left total knee replacement 2 weeks ago, pain and ed jennifer left leg SIDE PERFORMED: left TECHNIQUE: The lower extremity deep venous system is examined utilizing real time linear array sonog wendy with graded compression, doppler sonography and color-flow sonography. VESSELS IMAGED: External Iliac Vein (EIV) Common Femoral Vein Deep Femoral Vein Greater Saphenous Vein * Femoral Vein Popliteal Vein Small Saphenous Vein * Proximal Calf Veins (* superficial vessels) Left Leg: no evidence of DVT IMPRESSION: 1. Left lower extremity ultrasound negative for deep venous thrombosis
== END | disposition home or self-care (01) ==
LOC: RADUSWWP 14:51
PROVIDERS: ATTEND Orthopaedic Surgery
DX: M79.662 Pain in left lower leg (principal); R22.42 Localized swelling, mass and lump, left lower limb

== ENCOUNTER → 2021-07-18 | Outpatient (CLI) | payer MEDICARE, BC ==
[2021-07-18 10:39] LABS: Partial Thromboplastin Time 23.9 sec (22.0-30.0); Prothrombin Time 10.6 sec (9.0-12.0)
--- NOTE | 2021-07-18 11:12 | XR ---
EXAMINATION TYPE: XR chest 2V DATE OF EXAM: 07/18/2021 COMPARISON: NONE HISTORY: Presurgical study. TECHNIQUE: Frontal and lateral views of the chest are obtained. FINDINGS: There is no suspicious focal air space opacity, pleural effusion, or pneumothorax seen. T he cardiac silhouette size is within normal limits. Degenerative changes in the spine and both should ers. IMPRESSION: No acute cardiopulmonary process.
[2021-07-18 11:41] LABS: HCT 48.4 % (39.0-53.0); HGB 14.9 gm/dL (13.0-17.5); MCH 29.3 pg (25.0-35.0); MCHC 30.8 g/dL (31.0-37.0); MCV 95.3 fL (80.0-100.0); Mean Platelet Volume 7.5; Platelet Count 256 k/uL (150-450); RBC 5.08 m/uL (4.30-5.90); RDW 12.2 % (11.5-15.5); WBC 10.5 k/uL (3.8-10.6)
[2021-07-18 11:48] LABS: Appearance,Urine Clear (Clear); Bilirubin,Urine Negative (Negative); Blood,Urine Trace (Negative); Color,Urine Colorless; Glucose,Urine (UA) Negative (Negative); Ketones,Urine Negative (Negative); Leukocyte Esterase,Urine Negative (Negative); Nitrite,Urine Negative (Negative); PH, Urine 7.5 (5.0-8.0); Protein,Urine Negative (Negative); RBC,Urine 1 /hpf (0-5); Specific Gravity,Urine 1.004 (1.001-1.035); Urobilinogen,Urine <2.0 mg/dL (<2.0)
[2021-07-18 11:48] LABS: ALT 31 U/L (4-49); AST 30 U/L (17-59); African American GFR (CKD) >90 (>60 ml/min/1.73 sqM); Albumin 4.2 g/dL (3.5-5.0); Albumin/Globulin Ratio 1.4; Alkaline Phosphatase 102 U/L (38-126); Anion Gap 6 mmol/L; Blood Urea Nitrogen 12 mg/dL (9-20); Calcium 9.8 mg/dL (8.4-10.2); Carbon Dioxide 32 mmol/L (22-30); Chloride 102 mmol/L (98-107); Glucose 107 mg/dL (74-99); Magnesium 1.9 mg/dL (1.6-2.3); Non-African American GFR(CKD) >90 (>60 ml/min/1.73 sqM); Potassium 4.7 mmol/L (3.5-5.1); Sodium 140 mmol/L (137-145); Total Bilirubin 0.5 mg/dL (0.2-1.3); Total Protein 7.2 g/dL (6.3-8.2)
[2021-07-18 13:27] LABS: T4, Free (Free Thyroxine) 0.93 ng/dL (0.78-2.19)
--- NOTE | 2021-07-18 13:31 | US ---
EXAMINATION TYPE: US vein mapping BILAT DATE OF EXAM: 07/18/2021 11:28 AM COMPARISON: NONE CLINICAL HISTORY: PRE SURGICAL. Pre op cardiac surgery SIDE PERFORMED: Bilateral TECHNIQUE: Lower extremity saphenous vein is examined and measured utilizing real time linear array sonography. DUPLEX FINDINGS: Greater Saphenous: Color flow seen Measurements in mm: Right Greater Saphenous: Groin: 7.4 x 7.8 mm High Thigh: 6.0 x 5.7 mm Mid Thigh: 4.1 x 4.7 mm Above Knee: 3.4 x 3.7 mm Knee: 3.4 x 3.5 mm Below Knee: 2.7 x 3.3 mm Mid Calf: 3.0 x 3.6 mm At Ankle: 3.5 x 3.7 mm Left Greater Saphenous: Groin: 6.9 x 6.4 mm High Thigh: 4.7 x 6.0 mm Mid Thigh: 4.2 x 4.3 mm Above Knee: 3.8 x 4.3 mm Knee: 3.8 x 4.2 mm Below Knee: 3.6 x 3.8 mm Mid Calf: 2.7 x 2.7 mm At Ankle: 2.5 x 2.8 mm IMPRESSION: 1. Bilateral GSV measurements listed above. 2. Performing surgeon to determine viability as conduit.
--- NOTE | 2021-07-18 14:15 | P.PN ---
Progress Note - Text Progress Note Date: 07/18/21 5 meter walk test completed without difficulty: #1 4.08 sec #2 3.30 sec #3 3.75 sec
[2021-07-18 15:06] LABS: Hepatitis A Antibody IgM Nonreactive (Nonreactive); Hepatitis B Core IgM Nonreactive (Nonreactive); Hepatitis B Surface Antigen Nonreactive (Nonreactive); Hepatitis C IgG Antibody Nonreactive (Nonreactive)
[2021-07-18 15:09] LABS: Chol/HDL Ratio 3.32 Ratio; LDL Cholesterol,Calculated 87.9 mg/dL (0.0-131.0)
== END | disposition home or self-care (01) ==
LOC: LABWHC1 08:42
PROVIDERS: ATTEND Thoracic Surgery (Cardiothoracic Vascular Surgery)
DX: Z01.818 Encounter for other preprocedural examination (principal); Z87.891 Personal history of nicotine dependence; Z91.030 Bee allergy status
CPT/HCPCS: 94150; 84439; 80061; 80053; 80074; 84443; 83735; 85027; 85610; 85730; 81001; 87070; 87086; 83036; 87635; 71046; 93930; 93970; 93922; 36415; C9803

== ENCOUNTER 2021-07-19 05:40 | Inpatient (IN) | payer MEDICARE, BC ==
[~2021-07-19 05:40] MED LIST changes: -ACETAMINOPHEN TAB 500 MG TAB PO ONE; +ALBUMIN HUMAN 25% 50 ML IV ONE; +ALBUMIN HUMAN 5% 500 ML IVPB ONE; +ASPIRIN 325 MG TAB PO ONE; +ATORVASTATIN 10 MG TAB PO ONE; +CALCIUM CHLORIDE 100 MG/ML 10 ML SYRINGE IV ONE; +CHLORHEXIDINE GLUCONATE 15 ML CUP MUCOUS MEM ONE; +CLEVIDIPINE BUTYRATE 25 MG in EMPTY BAG 1 BAG IV ONE; -DEXAMETHASONE SOD PHOSPHATE 10 MG/ML 1 ML VIAL IV ONE; +DILTIAZEM 125 MG in SODIUM CHLORIDE 0.9% 100 ML IV ONE; +ELECTROLYTE-A SOLUTION 1,000 ML with POTASSIUM CHLORIDE 100 MEQ, MAGNESIUM SULFATE 16 M... IV ONE; +ELECTROLYTE-A SOLUTION 1,000 ML with POTASSIUM CHLORIDE 40 MEQ, MAGNESIUM SULFATE 16 ME... IV ONE; +HEPARIN SODIUM 1,000 UN/ML (10ML VL) IV ONE; +HEPARIN SODIUM,PORCINE 5,000 UNIT in SODIUM CHLORIDE 0.9% 500 ML 500 ML IV ONE; -HYDROmorphone 0.5 MG/0.5 ML SYRINGE IVP PRN; +INSULIN REGULAR 100 UNIT in SODIUM CHLORIDE 0.9% 100 ML IV ONE; +LACTATED RINGERS 1,000 ML IV ONE; -LACTATED RINGERS 1,000 ML IV SCH; +MAGNESIUM SULFATE 16.24 MEQ in EMPTY SYRINGE 1 SYR IV ONE; +MANNITOL 25% 12.5 GM/50 ML VIAL IV ONE; -MELOXICAM 7.5 MG TAB PO ONE; +METOPROLOL TARTRATE 12.5 MG TAB PO ONE; -MIDAZOLAM 2 MG/2 ML VIAL IV PRN; +NITROGLYCERIN SL TABS 0.4 MG TAB SUBLINGUAL ONE; +NITROGLYCERIN-D5W PMX 25 MG/250 ML BTL IV ONE; +NITROGLYCERIN-D5W PMX 50 MG in DEXTROSE/WATER 1 250ML.BAG IV ONE; +NOREPINEPHRINE 4 MG in SODIUM CHLORIDE 0.9% 250 ML IV ONE; -ONDANSETRON 4 MG/2 ML VIAL IVP ONE; +PAPAVERINE 360 MG in SODIUM CHLORIDE 0.9% 90 ML IV ONE; +PHENYLEPHRINE 10 MG/ML VIAL IV ONE; +PHENYLEPHRINE 40 MG in SODIUM CHLORIDE 0.9% 250 ML IV ONE; +PROTAMINE SULFATE 10 MG/ML 25 ML VIAL IV ONE; +PROTAMINE SULFATE 250 MG in EMPTY BAG 1 BAG IV ONE; +SODIUM BICARB 8.4% 50 ML SYR (1 MEQ/ML) IV ONE; +SODIUM CHLORIDE 0.9% 1,000 ML IV ONE; -TRANEXAMIC ACID 1,000 MG in SODIUM CHLORIDE 0.9% 100 ML IVPB ONE; +TRANEXAMIC ACID 2,000 MG in SODIUM CHLORIDE 0.9% 80 ML IV ONE; +propofoL 1,000 MG/100 ML VIAL IV ONE
[2021-07-19 06:47] LABS: Glucose,Whole Blood 92 mg/dL (75-99)
[2021-07-19] MEDS ORDERED: ELECTROLYTE-R (PH 7.4) 1,000 ML IV.SOLN IV ONE (08:20)
[2021-07-19] MEDS ORDERED: SODIUM CHLORIDE 0.9% IRRIG 1,000 ML BTL IRRIGATION ONE (08:20)
[2021-07-19] MEDS ORDERED: fentaNYL (PF) 50 MCG/ML 50 ML VIAL ONE (08:21)
[2021-07-19] MEDS ORDERED: TRANEXAMIC ACID IN NACL,ISO-OS 1,000 MG/100 ML BAG ONE (08:21)
[2021-07-19] MEDS ORDERED: ALBUMIN HUMAN 5% (25gm) 500 ML VIAL IVPB ONE (08:21)
[2021-07-19] MEDS ORDERED: VECURONIUM 10 MG VIAL IV ONE (08:21)
[2021-07-19] MEDS ORDERED: PROPOFOL 10 MG/ML 20 ML VIAL IV ONE (08:21)
[2021-07-19] MEDS ORDERED: LIDOCAINE 2% SYG (PF) 100 MG/5 ML ONE (08:21)
[2021-07-19] MEDS ORDERED: SUCCINYLCHOLINE CHLORIDE 100 MG/5 ML SYR IV ONE (08:21)
[2021-07-19] MEDS ORDERED: CALCIUM CHLORIDE 100 MG/ML 10 ML SYRINGE ONE (08:21)
[2021-07-19] MEDS ORDERED: PROTAMINE SULFATE 10 MG/ML 25 ML VIAL IV ONE (08:21)
[2021-07-19] MEDS ORDERED: MIDAZOLAM HCL 10 MG/10 ML VIAL ONE (08:21)
[2021-07-19] MEDS ORDERED: MAGNESIUM SULFATE 4 MEQ/ML 10ML VIAL ONE (08:21)
[2021-07-19] MEDS ORDERED: HEPARIN SODIUM,PORCINE 10,000 UNIT/ML 1 ML VIAL ONE (08:21)
[2021-07-19 09:06] LABS: ABG Base Excess 2.4 mmol/L; ABG Glucose Whole Blood 85 mg/dL (75-99); ABG HCO3 27 mmol/L (21-25); ABG Hematocrit 40 % (34.0-46.0); ABG Ionized Calcium 4.9 mg/dL (4.5-5.3); ABG Lactic Acid Whole Blood 1.9 mmol/L (0.5-1.6); ABG Oxygen Saturation 99.5 % (94-97); ABG PCO2 41 mmHg (35-45); ABG PH 7.43 (7.35-7.45); ABG PO2 192 mmHg (83-108); ABG Potassium Whole Blood 4.3 mmol/L (3.4-4.5); ABG Sodium Whole Blood 139 mmol/L (135-146); ABG TCO2 28 mmol/L (19-24)
[2021-07-19 10:19] LABS: ABG Base Excess 2.6 mmol/L; ABG Glucose Whole Blood 109 mg/dL (75-99); ABG HCO3 28 mmol/L (21-25); ABG Hematocrit 38 % (34.0-46.0); ABG Ionized Calcium 4.9 mg/dL (4.5-5.3); ABG Lactic Acid Whole Blood 1.7 mmol/L (0.5-1.6); ABG Oxygen Saturation 99.7 % (94-97); ABG PCO2 44 mmHg (35-45); ABG PH 7.41 (7.35-7.45); ABG PO2 200 mmHg (83-108); ABG Potassium Whole Blood 4.3 mmol/L (3.4-4.5); ABG Sodium Whole Blood 140 mmol/L (135-146); ABG TCO2 29 mmol/L (19-24)
[2021-07-19] MEDS: ceFAZolin 1,000 MG in SODIUM CHLORIDE 0.9% IRRIGATIO 1,000 ML IRRIGATION ONE ×2 (10:23→15:20)
[2021-07-19] MEDS ORDERED: AMIODARONE 360 MG in DEXTROSE 5% IN WATER 200 ML IV PRN ×2 (10:50)
[2021-07-19] MEDS ORDERED: AMIODARONE 450 MG in DEXTROSE 5% IN WATER 250 ML IV PRN ×2 (10:50)
[2021-07-19 10:54] LABS: ABG Base Excess 1.5 mmol/L; ABG Glucose Whole Blood 104 mg/dL (75-99); ABG HCO3 26 mmol/L (21-25); ABG Hematocrit 30 % (34.0-46.0); ABG Ionized Calcium 4.1 mg/dL (4.5-5.3); ABG PCO2 40 mmHg (35-45); ABG PH 7.42 (7.35-7.45); ABG PO2 377 mmHg (83-108); ABG Sodium Whole Blood 136 mmol/L (135-146); ABG TCO2 27 mmol/L (19-24)
[2021-07-19 11:17] LABS: ABG Glucose Whole Blood 116 mg/dL (75-99); ABG HCO3 27 mmol/L (21-25); ABG Hematocrit 31 % (34.0-46.0); ABG Ionized Calcium 4.3 mg/dL (4.5-5.3); ABG PCO2 41 mmHg (35-45); ABG PH 7.42 (7.35-7.45); ABG PO2 356 mmHg (83-108); ABG Potassium Whole Blood 4.8 mmol/L (3.4-4.5); ABG Sodium Whole Blood 137 mmol/L (135-146); ABG TCO2 28 mmol/L (19-24)
[2021-07-19 11:52] LABS: ABG Base Excess 2.4 mmol/L; ABG Glucose Whole Blood 128 mg/dL (75-99); ABG HCO3 28 mmol/L (21-25); ABG Hematocrit 32 % (34.0-46.0); ABG Ionized Calcium 4.3 mg/dL (4.5-5.3); ABG Oxygen Saturation 99.9 % (94-97); ABG PCO2 46 mmHg (35-45); ABG PH 7.39 (7.35-7.45); ABG PO2 298 mmHg (83-108); ABG Potassium Whole Blood 4.7 mmol/L (3.4-4.5); ABG Sodium Whole Blood 138 mmol/L (135-146); ABG TCO2 29 mmol/L (19-24)
[2021-07-19 12:21] LABS: ABG Base Excess 2.2 mmol/L; ABG Glucose Whole Blood 135 mg/dL (75-99); ABG HCO3 27 mmol/L (21-25); ABG Hematocrit 32 % (34.0-46.0); ABG Ionized Calcium 4.3 mg/dL (4.5-5.3); ABG PCO2 43 mmHg (35-45); ABG PH 7.41 (7.35-7.45); ABG PO2 390 mmHg (83-108); ABG Potassium Whole Blood 4.6 mmol/L (3.4-4.5); ABG Sodium Whole Blood 139 mmol/L (135-146); ABG TCO2 29 mmol/L (19-24)
[2021-07-19 12:57] LABS: ABG Glucose Whole Blood 131 mg/dL (75-99); ABG HCO3 27 mmol/L (21-25); ABG Hematocrit 30 % (34.0-46.0); ABG Ionized Calcium 4.2 mg/dL (4.5-5.3); ABG Oxygen Saturation 99.9 % (94-97); ABG PCO2 41 mmHg (35-45); ABG PH 7.42 (7.35-7.45); ABG PO2 362 mmHg (83-108); ABG Potassium Whole Blood 4.8 mmol/L (3.4-4.5); ABG Sodium Whole Blood 139 mmol/L (135-146); ABG TCO2 28 mmol/L (19-24)
[2021-07-19 13:45] LABS: ABG Lactic Acid Whole Blood 2.3 mmol/L (0.5-1.6)
[2021-07-19 13:47] LABS: ABG Lactic Acid Whole Blood 2.2 mmol/L (0.5-1.6)
[2021-07-19 13:48] LABS: ABG Lactic Acid Whole Blood 2.4 mmol/L (0.5-1.6)
[2021-07-19 13:48] LABS: ABG Lactic Acid Whole Blood 2.9 mmol/L (0.5-1.6)
[2021-07-19] MEDS ORDERED: IPRATROPIUM-ALBUTEROL 3 ML NEB INHALATION PRN (14:47)
[2021-07-19] MEDS ORDERED: Potassium Replacement Protocol 1 EACH MISC MISCELLANE PRN (14:47)
[2021-07-19] MEDS ORDERED: BENZOCAINE/MENTHOL LOZENG 1 EACH LOZENGE MUCOUS MEM PRN (14:47)
[2021-07-19] MEDS ORDERED: NITROGLYCERIN-D5W PMX 50 MG in DEXTROSE/WATER 1 250ML.BAG IV SCH (14:47)
[2021-07-19] MEDS ORDERED: hydrALAZINE HCL 20 MG/ML 1 ML VIAL IVP PRN (14:47)
[2021-07-19] MEDS ORDERED: ONDANSETRON 4 MG/2 ML VIAL IVP PRN (14:47)
[2021-07-19] MEDS ORDERED: Magnesium Replacement Protocol 1 EACH MISC MISCELLANE PRN (14:47)
[2021-07-19] MEDS ORDERED: METOCLOPRAMIDE 5 MG/ML 2 ML VIAL IVP PRN (14:47)
[2021-07-19] MEDS ORDERED: DEXMEDETOMIDINE/0.9% NACL(PMX) 400 MCG in EMPTY BAG 1 BAG IV SCH (14:47)
[2021-07-19 14:51] LABS: Glucose,Whole Blood 125 mg/dL (75-99)
[2021-07-19 15:06] LABS: Basophils % (A) 0 %; Eosinophils % (A) 0 %; HCT 31.3 % (39.0-53.0); Ionized Calcium 4.7 mg/dL (4.5-5.3); Lymphocytes % (A) 6 %; MCH 30.9 pg (25.0-35.0); MCHC 32.9 g/dL (31.0-37.0); MCV 93.9 fL (80.0-100.0); Mean Platelet Volume 7.5; Monocytes # (A) 0.7 k/uL (0-1.0); Monocytes % (A) 4 %; Neutrophils # (A) 14.3 k/uL (1.3-7.7); Neutrophils % (A) 89 %; Platelet Count 141 k/uL (150-450); RBC 3.33 m/uL (4.30-5.90); RDW 12.7 % (11.5-15.5); WBC 16.2 k/uL (3.8-10.6)
[2021-07-19 15:12] LABS: INR 1.2 (<1.2); Partial Thromboplastin Time 32.9 sec (22.0-30.0); Prothrombin Time 12.8 sec (9.0-12.0)
[2021-07-19 15:13] LABS: HGB 10.3 gm/dL (13.0-17.5)
--- NOTE | 2021-07-19 15:13 | XR ---
EXAMINATION TYPE: XR chest 1V portable DATE OF EXAM: 07/19/2021 COMPARISON: 07/18/2021 INDICATION: Postop cardiac surgery TECHNIQUE: Single frontal view of the chest is obtained. FINDINGS: The heart size is normal. The pulmonary vasculature is normal. Mild plate atelectasis at the right base There is a left-sided chest tube. No pneumothorax is evident. [place]-Lamar catheter is present with the tip in the main pulmonary artery region. Endotracheal tube tip is 5.4 cm above the barron. Nasogastri c tube transverses the thorax with tip within the proximal left upper quadrant of the abdomen. This could be advanced 7 cm for more typical placement. Sternotomy wires are present from cardiac valve hooper rgery. Mediastinal tube is present. Epicardial leads are present. IMPRESSION: 1. Mild platelike atelectasis right lung base. 2. Multiple lines and catheters discussed above. The nasogastric tube could be advanced 7 cm for more typical placement.
[2021-07-19 15:18] LABS: ALT 19 U/L (4-49); AST 46 U/L (17-59); African American GFR (CKD) >90 (>60 ml/min/1.73 sqM); Alkaline Phosphatase 47 U/L (38-126); Anion Gap 8 mmol/L; Blood Urea Nitrogen 10 mg/dL (9-20); Calcium 7.4 mg/dL (8.4-10.2); Carbon Dioxide 22 mmol/L (22-30); Chloride 108 mmol/L (98-107); Glucose 122 mg/dL (74-99); Magnesium 2.3 mg/dL (1.6-2.3); Non-African American GFR(CKD) >90 (>60 ml/min/1.73 sqM); Potassium 4.3 mmol/L (3.5-5.1); Sodium 138 mmol/L (137-145); Total Bilirubin 0.9 mg/dL (0.2-1.3); Total Protein 4.9 g/dL (6.3-8.2)
[2021-07-19] MEDS: LACTATED RINGERS 1,000 ML IV SCH (15:21)
[2021-07-19] MEDS: ACETAMINOPHEN IV (For NPO) 1,000 MG in EMPTY BAG 1 BAG IVPB SCH ×2 (15:26→21:42)
[2021-07-19 15:29] LABS: ABG Base Excess -0.9 mmol/L; ABG HCO3 25 mmol/L (21-25); ABG PCO2 49 mmHg (35-45); ABG PH 7.32 (7.35-7.45); ABG PO2 324 mmHg (83-108); ABG TCO2 27 mmol/L (19-24)
[2021-07-19 15:30] LABS: Allen Test Performed? no
[2021-07-19] MEDS ORDERED: DILTIAZEM 125 MG in SODIUM CHLORIDE 0.9% 100 ML IV SCH (15:30)
[2021-07-19] MEDS ORDERED: INSULIN REGULAR 100 UNIT in SODIUM CHLORIDE 0.9% 100 ML IV SCH (16:00)
[2021-07-19 16:03] LABS: Glucose,Whole Blood 131 mg/dL (75-99)
[2021-07-19 16:57] LABS: Glucose,Whole Blood 133 mg/dL (75-99)
[2021-07-19] MEDS: IPRATROPIUM-ALBUTEROL 3 ML NEB INHALATION SCH ×4 (16:58→19:19)
[2021-07-19 17:16] LABS: Basophils # (A) 0.1 k/uL (0-0.2); Basophils % (A) 0 %; Eosinophils % (A) 0 %; HCT 35.9 % (39.0-53.0); HGB 11.4 gm/dL (13.0-17.5); Lymphocytes # (A) 0.9 k/uL (1.0-4.8); Lymphocytes % (A) 5 %; MCHC 31.7 g/dL (31.0-37.0); MCV 94.4 fL (80.0-100.0); Mean Platelet Volume 7.3; Monocytes % (A) 6 %; Neutrophils # (A) 15.4 k/uL (1.3-7.7); Neutrophils % (A) 89 %; Platelet Count 167 k/uL (150-450); RDW 12.3 % (11.5-15.5); WBC 17.4 k/uL (3.8-10.6)
--- NOTE | 2021-07-19 17:55 | OP ---
OPERATIVE REPORT DATE OF SURGERY: 07/19/2021 ATTENDING SURGEON: Dr. Ja Dudley. ASSISTANTS: 1. CAMRYN Hernandez. 2. Stevo Whiteside NP. PREOPERATIVE DIAGNOSIS: 1. Severe aortic stenosis. 2. Two-vessel coronary arterial disease. POSTOPERATIVE DIAGNOSIS: 1. Severe aortic stenosis. 2. Two-vessel coronary arterial disease. PROCEDURE: 1. Aortic valve replacement with a #25 mm Urias Inspiris bioprosthetic aortic valve. 2. Coronary artery bypass grafting x2 with left internal mammary artery, left anterior descending artery, radial artery off the aorta to the first obtuse marginal artery with endoscopic left radial artery harvest. 3. Clip ligation of the left atrial appendage with a 35 mm AtriClip. 4. Intraoperative transesophageal echocardiogram. ANESTHESIA: General. BLOOD LOSS: 500 mL. SUMMARY: The patient was brought to the operating room, placed in supine position. Upon administration of general endotracheal anesthetic, placement of a [place]amar catheter arterial line, adequate IV access and Duarte catheter, the patient was carefully prepped and draped in normal sterile fashion using chlorhexidine paint and sterile towels. First endoscopically after a negative Serg's test the left radial artery was harvested from the elbow down to the wrist via two small 1 cm incisions. All branches were doubly clipped and divided. The artery was flushed and bathed in a Cardizem heparin solution. The incision was closed in two layers. A midline incision in the chest was made and sternum divided. Pericardium was opened. Heart size was mildly enlarged. The aorta was soft. Left pleural space was opened. Left internal mammary artery was harvested as a pedicle from the xiphoid to the left subclavian vein. It was of 2 mm quality with excellent flow. The patient was heparinized with AST of greater than 480. The aorta and vena cava were cannulated. Antegrade and retrograde cardioplegic catheters were positioned in the ascending aorta and the coronary sinus. The patient was placed on bypass, cross-clamp placed, heart arrested with one liter of antegrade followed by 500 mL of retrograde cardioplegia. Retrograde cardioplegia was delivered 300 to 500 mL at the end of each 20-minute interval. Once the heart was arrested and on bypass, first the base of the left atrial appendage was measured. A 35 mm AtriClip was secured at the base, officially obliterating the left atrial appendage. Distal anastomoses were constructed. Radial artery distal anastomosis to the first obtuse marginal artery was constructed using a 7-0 Prolene running suture. Caliber of this vessel was 1.75 to 2 mm. Next, the left internal mammary artery was beveled and distal anastomosis to the mid left anterior descending artery constructed using an 8-0 Prolene running suture. Caliber of this vessel was 1.75 mm. Under a single cross-clamp, a single proximal anastomosis was constructed in the ascending aorta using 6-0 Prolene running suture. At this point a transverse aortotomy incision was made 2 cm distal to the takeoff of the right coronary artery. A handheld retractor was placed. The aortic valve with a trileaflet, extremely heavily calcified valve. The valve leaflets were excised, the anulus debrided, and it was irrigated again and again copiously with 2 L of cold saline. It sized to a 25 mm Urias Inspiris bioprosthetic aortic valve. The valve was brought into the field as 2-0 Tycron pledgetted sutures were placed circumferentially, ventricularly based. These were then passed through the sewing cuff of the valve, which was then seated and seated well. All sutures were then secured, tied and cut using the Folloze ligature system device. At this point the aortotomy incision was closed in a double layer pledgetted 4-0 Prolene vertical mattress followed by an [id number] stitch from both sites. The patient was placed head down. The aortic root was vented. One liter of warm blood retrograde cardioplegia was run. Complete de-airing maneuver was performed 3 times. Cross-clamp was then removed. The patient was de-aired again, and once beating in normal sinus rhythm, he was reperfused and brought off bypass. He came off bypass uneventfully with good hemodynamics. Protamine was delivered, patient decannulated. Atrial ventricular pacing wires were placed. Mediastinal and left pleural chest tubes were placed. At this point, the sternum was closed with four #6 sternal wires and two [id number] [place] sternal cable closure devices. Skin, subcutaneous tissue and fascia were closed in three layers. No complications. Patient tolerated the procedure well and was taken to the cardiovascular intensive care unit in stable condition. MMODL / IJN: [id number] /
[2021-07-19 18:09] LABS: Glucose,Whole Blood 141 mg/dL (75-99)
[2021-07-19] MEDS: CLEVIDIPINE BUTYRATE 25 MG in EMPTY BAG 1 BAG IV SCH (18:30)
[2021-07-19] MEDS ORDERED: MUPIROCIN 2% OINT 22 GM TUBE NASAL ONE (18:30)
[2021-07-19] MEDS: HEPARIN SODIUM,PORCINE/PF 5,000 UNIT/0.5 ML SYRINGE SQ SCH (18:31)
[2021-07-19 18:59] LABS: Glucose,Whole Blood 140 mg/dL (75-99)
[2021-07-19 19:38] LABS: ABG Base Excess -2.8 mmol/L; ABG HCO3 23 mmol/L (21-25); ABG Oxygen Saturation 99.4 % (94-97); ABG PCO2 41 mmHg (35-45); ABG PH 7.36 (7.35-7.45); ABG PO2 145 mmHg (83-108); ABG TCO2 24 mmol/L (19-24); Allen Test Performed? Yes
[2021-07-19 19:52] LABS: Glucose,Whole Blood 148 mg/dL (75-99)
[2021-07-19 20:17] LABS: Basophils % (A) 0 %; Eosinophils % (A) 0 %; HCT 37.9 % (39.0-53.0); HGB 12.3 gm/dL (13.0-17.5); Lymphocytes # (A) 0.7 k/uL (1.0-4.8); Lymphocytes % (A) 4 %; MCH 30.8 pg (25.0-35.0); MCHC 32.4 g/dL (31.0-37.0); MCV 94.9 fL (80.0-100.0); Mean Platelet Volume 7.6; Monocytes # (A) 0.9 k/uL (0-1.0); Monocytes % (A) 5 %; Neutrophils # (A) 16.1 k/uL (1.3-7.7); Neutrophils % (A) 90 %; Platelet Count 194 k/uL (150-450); RBC 3.99 m/uL (4.30-5.90); RDW 12.8 % (11.5-15.5); WBC 17.8 k/uL (3.8-10.6)
[2021-07-19 20:58] LABS: Glucose,Whole Blood 154 mg/dL (75-99)
[2021-07-19] MEDS ORDERED: MUPIROCIN 2% OINT 22 GM TUBE NASAL SCH (21:00)
[2021-07-19] MEDS: METOPROLOL TARTRATE 25 MG TAB PO SCH (21:42)
[2021-07-19 21:55] LABS: Glucose,Whole Blood 162 mg/dL (75-99)
[2021-07-19 22:59] LABS: Glucose,Whole Blood 152 mg/dL (75-99)
[2021-07-20] MEDS: CLEVIDIPINE BUTYRATE 25 MG in EMPTY BAG 1 BAG IV SCH ×2 (00:01→06:21)
[2021-07-20] MEDS: KETOROLAC 15 MG/ML 1 ML VIAL IVP PRN ×3 (00:03→19:15)
[2021-07-20] MEDS: HEPARIN SODIUM,PORCINE/PF 5,000 UNIT/0.5 ML SYRINGE SQ SCH ×3 (00:05→15:55)
[2021-07-20 00:10] LABS: Glucose,Whole Blood 152 mg/dL (75-99)
[2021-07-20 01:16] LABS: Glucose,Whole Blood 142 mg/dL (75-99)
[2021-07-20 02:02] LABS: Glucose,Whole Blood 137 mg/dL (75-99)
[2021-07-20 02:53] LABS: Glucose,Whole Blood 129 mg/dL (75-99)
[2021-07-20 04:01] LABS: Glucose,Whole Blood 132 mg/dL (75-99)
[2021-07-20] MEDS: HYDROcodone/APAP 5-325MG 1 EACH TAB PO PRN ×4 (04:33→20:22)
[2021-07-20 04:54] LABS: Glucose,Whole Blood 133 mg/dL (75-99)
[2021-07-20 05:22] LABS: Basophils % (A) 0 %; Eosinophils % (A) 0 %; HCT 38.1 % (39.0-53.0); Lymphocytes % (A) 5 %; MCH 29.9 pg (25.0-35.0); MCHC 31.5 g/dL (31.0-37.0); Mean Platelet Volume 7.8; Monocytes # (A) 1.1 k/uL (0-1.0); Monocytes % (A) 6 %; Neutrophils # (A) 17.6 k/uL (1.3-7.7); Neutrophils % (A) 88 %; Platelet Count 168 k/uL (150-450); RBC 4.01 m/uL (4.30-5.90); RDW 12.5 % (11.5-15.5); WBC 19.9 k/uL (3.8-10.6)
[2021-07-20 05:29] LABS: Ionized Calcium 4.9 mg/dL (4.5-5.3)
[2021-07-20 05:38] LABS: ALT 24 U/L (4-49); AST 68 U/L (17-59); African American GFR (CKD) >90 (>60 ml/min/1.73 sqM); Albumin 3.5 g/dL (3.5-5.0); Alkaline Phosphatase 59 U/L (38-126); Anion Gap 4 mmol/L; Blood Urea Nitrogen 14 mg/dL (9-20); Calcium 8.2 mg/dL (8.4-10.2); Carbon Dioxide 24 mmol/L (22-30); Chloride 106 mmol/L (98-107); Glucose 131 mg/dL (74-99); Non-African American GFR(CKD) >90 (>60 ml/min/1.73 sqM); Sodium 134 mmol/L (137-145); Total Bilirubin 0.6 mg/dL (0.2-1.3); Total Protein 5.6 g/dL (6.3-8.2)
[2021-07-20] MEDS: ALBUMIN HUMAN 5% 250 ML in EMPTY BAG 1 BAG IVPB PRN ×3 (05:57→07:40)
[2021-07-20 06:06] LABS: Glucose,Whole Blood 132 mg/dL (75-99)
[2021-07-20 06:51] LABS: Glucose,Whole Blood 123 mg/dL (75-99)
[2021-07-20] MEDS ORDERED: HYDROcodone/APAP 5-325MG 1 EACH TAB PO PRN (08:08)
[2021-07-20 08:11] LABS: Glucose,Whole Blood 147 mg/dL (75-99)
[2021-07-20] MEDS: IPRATROPIUM-ALBUTEROL 3 ML NEB INHALATION SCH ×4 (08:29→20:35)
--- NOTE | 2021-07-20 08:42 | P.PN ---
Subjective Progress Note Date: 07/20/21 Principal diagnosis: Severe aortic valve stenosis, two-vessel coronary artery disease. Previous medical history of questionable presyncopal event versus TIA recently, previous tobacco dependence, osteoarthritis, enlarged prostate. Remains unvaccinated against Covid POD #1 aortic valve replacement with a #25 mm Urias Inspiris bioprosthetic aortic valve, coronary artery bypass grafting 2 with the left internal mammary artery to the left anterior descending artery, left radial artery off the aorta to the first obtuse marginal artery, endoscopic left radial artery harvest, clip ligation of the left atrial appendage with a 35 mm AtriClip, intraoperative transesophageal echocardiogram The patient was seen and examined this morning sitting up in a recliner in the intensive care unit in no acute distress. He was successfully extubated yesterday at 19:55. Remains in sinus rhythm, hemodynamically stable on no inotropes or pressors. Was on IV nitro and Cardizem for vessel spasm prophylaxis. States pain is well controlled on current medication regimen, denies shortness of breath. Currently on 2 L nasal cannula with oxygen saturation in the mid to high 90s, able to achieve 2000 L on his incentive spirometry. Right internal jugular [place]/Cordis, right radial arterial line, mediastinal/left pleural chest tubes all remain. No other new concerns. Objective - Vital Signs Vital signs: Vital Signs Temp 95.7 F L 07/19/21 16:00 Pulse 66 07/20/21 07:00 Resp 16 07/20/21 07:00 BP 120/71 07/20/21 07:00 Pulse Ox 97 07/20/21 06:30 FiO2 50 07/19/21 20:00 Intake & Output 07/19/21 07/20/21 07/20/21 18:59 06:59 18:59 Intake Total 199.830 6563.452 59 Output Total 4370 1880 120 Balance -3747.276 -614.548 -61 Weight 100.6 kg Intake: IV 219 1169 59 ACETAMINOPHEN IV (For NPO 400 ) 1,000 mg In Empty Bag 1 bag @ 400 mls/hr IVPB Q6H [facility] Rx#:[id number] Lactated Ringers 1,000 ml 550 50 @ 20 mls/hr IV .Q24H [facility] Rx#:[id number] cardiac output 80 120 pressure bags 36 99 9 Intake, IV Titration 403.724 96.452 Amount ACETAMINOPHEN IV (For NPO 100 ) 1,000 mg In Empty Bag 1 bag @ 400 mls/hr IVPB Q6H [facility] Rx#:[id number] Clevidipine Butyrate 25 3.533 70.900 mg In Empty Bag 1 bag @ 1 MG/HR 2 mls/hr IV .Q24H [facility] Rx#:[id number] Insulin Regular 100 unit 1.532 25.552 In Sodium Chloride 0.9% 100 ml @ Per Protocol IV .Q0M [facility] Rx#:[id number] Lactated Ringers 1,000 ml 200 @ 20 mls/hr IV .Q24H [facility] Rx#:[id number] ceFAZolin 2 gm In Sodium 50 Chloride 0.9% 50 ml @ Per Protocol IVPB ONCE ONE Rx#:[id number] propofoL 1,000 mg In 48.659 Empty Bag 1 bag @ Titrate IV .Q0M [facility] Rx#: [id number] Output: Chest Tube Drainage 380 770 60 Mediastinal and left 380 770 60 pleural Urine 1990 1110 60 Estimated Blood Loss 1999 Other: Voiding Method Indwelling Catheter Indwelling Catheter ABP, PAP, CO, CI - Last Documented Arterial Blood Pressure 127/53 Pulmonary Artery Pressure 12/4 Cardiac Output 4.2 Cardiac Index 1.9 - Exam CONSTITUTIONAL: Appears comfortable, cooperative, no acute distress RESPIRATORY: Lungs sounds diminished bilaterally. Respirations even, nonlabored. Currently on 2 L nasal cannula with oxygen saturation 97%. Able to achieve 2000 mL on incentive spirometry. Strong nonproductive cough. CARDIOVASCULAR: S1, S2 present. Regular rate and rhythm, sinus rhythm on telemetry. Sternum stable. Palpable peripheral pulses bilaterally. No edema present. No calf pain or tenderness noted. Heart hugger in place with patient demonstrating appropriate use. Antiembolism stockings, SCDs present. GASTROINTESTINAL: Abdomen soft, nontender, nondistended. Hypoactive bowel sounds present 4 quadrants. Tolerating full liquids. Negative flatus GENITOURINARY: Duarte present draining clear, yellow urine. Output overnight 50-150 mL per hour INTEGUMENTARY: Skin is warm and dry with evidence of good perfusion. Anterior chest incision well approximated and covered with dry intact dressing. NEUROLOGIC: Cranial nerves II through XII intact MUSKULOSKELETAL: Able to move all extremities, strength equal bilaterally, gait normal PSYCHIATRIC: Alert and oriented to person place and time, appropriate affect, intact judgment and insight INVASIVE LINES AND TUBES: Mediastinal/left pleural chest tubes present and connected to wall suction, no air leaks present, 480 mL serosanguineous drainage overnight, 1150 mL since surgery. A/V epicardial pacemaker wires present, connected to generator, DDD mode with backup rate 50 bpm. Right internal jugular [place]/Cordis, right radial arterial line present. Last CO/CI 4.2/1.9, PA 19/7, CVP 4. - Allied health notes Allied health notes reviewed: nursing - Labs CBC & Chem 7: 07/20/21 04:55 07/20/21 04:55 Labs: Abnormal Lab Results - Last 24 Hours (Table) 07/18/21 07/19/21 07/19/21 Range/Units 08:57 09:07 10:21 WBC (3.8-10.6) k/uL RBC (4.30-5.90) m/uL Hgb (13.0-17.5) gm/dL Hct (39.0-53.0) % Plt Count (150-450) k/uL Neutrophils # (1.3-7.7) k/uL Lymphocytes # (1.0-4.8) k/uL Monocytes # (0-1.0) k/uL PT (9.0-12.0) sec INR (<1.2) APTT (22.0-30.0) sec ABG pH (7.35-7.45) ABG pCO2 (35-45) mmHg ABG pO2 192 H 200 H (83-108) mmHg ABG HCO3 27 H 28 H (21-25) mmol/L ABG Total CO2 28 H 29 H (19-24) mmol/L ABG O2 Saturation 99.5 H 99.7 H (94-97) % ABG Hematocrit (34.0-46.0) % ABG Potassium (3.4-4.5) mmol/L ABG Ionized Calcium (4.5-5.3) mg/dL ABG Glucose 109 H (75-99) mg/dL ABG Lactic Acid 1.9 H 1.7 H (0.5-1.6) mmol/L Hemoglobin 12.9 L 12.5 L (13.0-17.5) gm/dL Sodium (137-145) mmol/L Chloride (98-107) mmol/L Creatinine (0.66-1.25) mg/dL Glucose (74-99) mg/dL POC Glucose (mg/dL) (75-99) mg/dL Calcium (8.4-10.2) mg/dL AST (17-59) U/L Total Protein (6.3-8.2) g/dL Albumin (3.5-5.0) g/dL Arterial Blood Potassium (3.4-4.5) mmol/L Arterial Blood Glucose 109 H (75-99) mg/dL Crossmatch See Detail 07/19/21 07/19/21 07/19/21 Range/Units 10:21 11:18 11:53 WBC (3.8-10.6) k/uL RBC (4.30-5.90) m/uL Hgb (13.0-17.5) gm/dL Hct (39.0-53.0) % Plt Count (150-450) k/uL Neutrophils # (1.3-7.7) k/uL Lymphocytes # (1.0-4.8) k/uL Monocytes # (0-1.0) k/uL PT (9.0-12.0) sec INR (<1.2) APTT (22.0-30.0) sec ABG pH (7.35-7.45) ABG pCO2 46 H (35-45) mmHg ABG pO2 377 H 356 H 298 H (83-108) mmHg ABG HCO3 26 H 27 H 28 H (21-25) mmol/L ABG Total CO2 27 H 28 H 29 H (19-24) mmol/L ABG O2 Saturation 100.0 H 100.0 H 99.9 H (94-97) % ABG Hematocrit 30 L 31 L 32 L (34.0-46.0) % ABG Potassium 5.0 H 4.8 H 4.7 H (3.4-4.5) mmol/L ABG Ionized Calcium 4.1 L 4.3 L 4.3 L (4.5-5.3) mg/dL ABG Glucose 104 H 116 H 128 H (75-99) mg/dL ABG Lactic Acid 2.0 H 2.3 H* 2.2 H* (0.5-1.6) mmol/L Hemoglobin 9.9 L 10.2 L 10.3 L (13.0-17.5) gm/dL Sodium (137-145) mmol/L Chloride (98-107) mmol/L Creatinine (0.66-1.25) mg/dL Glucose (74-99) mg/dL POC Glucose (mg/dL) (75-99) mg/dL Calcium (8.4-10.2) mg/dL AST (17-59) U/L Total Protein (6.3-8.2) g/dL Albumin (3.5-5.0) g/dL Arterial Blood Potassium 5.0 H 4.8 H 4.7 H (3.4-4.5) mmol/L Arterial Blood Glucose 104 H 116 H 128 H (75-99) mg/dL Crossmatch 07/19/21 07/19/21 07/19/21 Range/Units 12:23 12:58 14:50 WBC 16.2 H (3.8-10.6) k/uL RBC 3.33 L (4.30-5.90) m/uL Hgb 10.3 L D (13.0-17.5) gm/dL Hct 31.3 L (39.0-53.0) % Plt Count 141 L (150-450) k/uL Neutrophils # 14.3 H (1.3-7.7) k/uL Lymphocytes # (1.0-4.8) k/uL Monocytes # (0-1.0) k/uL PT (9.0-12.0) sec INR (<1.2) APTT (22.0-30.0) sec ABG pH (7.35-7.45) ABG pCO2 (35-45) mmHg ABG pO2 390 H 362 H (83-108) mmHg ABG HCO3 27 H 27 H (21-25) mmol/L ABG Total CO2 29 H 28 H (19-24) mmol/L ABG O2 Saturation 100.0 H 99.9 H (94-97) % ABG Hematocrit 32 L 30 L (34.0-46.0) % ABG Potassium 4.6 H 4.8 H (3.4-4.5) mmol/L ABG Ionized Calcium 4.3 L 4.2 L (4.5-5.3) mg/dL ABG Glucose 135 H 131 H (75-99) mg/dL ABG Lactic Acid 2.4 H* 2.9 H* (0.5-1.6) mmol/L Hemoglobin 10.3 L 9.9 L (13.0-17.5) gm/dL Sodium (137-145) mmol/L Chloride (98-107) mmol/L Creatinine (0.66-1.25) mg/dL Glucose (74-99) mg/dL POC Glucose (mg/dL) (75-99) mg/dL Calcium (8.4-10.2) mg/dL AST (17-59) U/L Total Protein (6.3-8.2) g/dL Albumin (3.5-5.0) g/dL Arterial Blood Potassium 4.6 H 4.8 H (3.4-4.5) mmol/L Arterial Blood Glucose 135 H 131 H (75-99) mg/dL Crossmatch 07/19/21 07/19/21 07/19/21 Range/Units 14:50 14:50 14:50 WBC (3.8-10.6) k/uL RBC (4.30-5.90) m/uL Hgb (13.0-17.5) gm/dL Hct (39.0-53.0) % Plt Count (150-450) k/uL Neutrophils # (1.3-7.7) k/uL Lymphocytes # (1.0-4.8) k/uL Monocytes # (0-1.0) k/uL PT 12.8 H (9.0-12.0) sec INR 1.2 H (<1.2) APTT 32.9 H (22.0-30.0) sec ABG pH (7.35-7.45) ABG pCO2 (35-45) mmHg ABG pO2 (83-108) mmHg ABG HCO3 (21-25) mmol/L ABG Total CO2 (19-24) mmol/L ABG O2 Saturation (94-97) % ABG Hematocrit (34.0-46.0) % ABG Potassium (3.4-4.5) mmol/L ABG Ionized Calcium (4.5-5.3) mg/dL ABG Glucose (75-99) mg/dL ABG Lactic Acid (0.5-1.6) mmol/L Hemoglobin (13.0-17.5) gm/dL Sodium (137-145) mmol/L Chloride 108 H (98-107) mmol/L Creatinine 0.60 L (0.66-1.25) mg/dL Glucose 122 H (74-99) mg/dL POC Glucose (mg/dL) 125 H (75-99) mg/dL Calcium 7.4 L (8.4-10.2) mg/dL AST (17-59) U/L Total Protein 4.9 L (6.3-8.2) g/dL Albumin 3.0 L (3.5-5.0) g/dL Arterial Blood Potassium (3.4-4.5) mmol/L Arterial Blood Glucose (75-99) mg/dL Crossmatch 07/19/21 07/19/21 07/19/21 Range/Units 15:27 16:02 16:54 WBC (3.8-10.6) k/uL RBC (4.30-5.90) m/uL Hgb (13.0-17.5) gm/dL Hct (39.0-53.0) % Plt Count (150-450) k/uL Neutrophils # (1.3-7.7) k/uL Lymphocytes # (1.0-4.8) k/uL Monocytes # (0-1.0) k/uL PT (9.0-12.0) sec INR (<1.2) APTT (22.0-30.0) sec ABG pH 7.32 L (7.35-7.45) ABG pCO2 49 H (35-45) mmHg ABG pO2 324 H (83-108) mmHg ABG HCO3 (21-25) mmol/L ABG Total CO2 27 H (19-24) mmol/L ABG O2 Saturation 100.0 H (94-97) % ABG Hematocrit (34.0-46.0) % ABG Potassium (3.4-4.5) mmol/L ABG Ionized Calcium (4.5-5.3) mg/dL ABG Glucose (75-99) mg/dL ABG Lactic Acid (0.5-1.6) mmol/L Hemoglobin (13.0-17.5) gm/dL Sodium (137-145) mmol/L Chloride (98-107) mmol/L Creatinine (0.66-1.25) mg/dL Glucose (74-99) mg/dL POC Glucose (mg/dL) 131 H 133 H (75-99) mg/dL Calcium (8.4-10.2) mg/dL AST (17-59) U/L Total Protein (6.3-8.2) g/dL Albumin (3.5-5.0) g/dL Arterial Blood Potassium (3.4-4.5) mmol/L Arterial Blood Glucose (75-99) mg/dL Crossmatch 07/19/21 07/19/21 07/19/21 Range/Units 16:56 18:07 18:57 WBC 17.4 H (3.8-10.6) k/uL RBC 3.80 L (4.30-5.90) m/uL Hgb 11.4 L (13.0-17.5) gm/dL Hct 35.9 L (39.0-53.0) % Plt Count (150-450) k/uL Neutrophils # 15.4 H (1.3-7.7) k/uL Lymphocytes # 0.9 L (1.0-4.8) k/uL Monocytes # (0-1.0) k/uL PT (9.0-12.0) sec INR (<1.2) APTT (22.0-30.0) sec ABG pH (7.35-7.45) ABG pCO2 (35-45) mmHg ABG pO2 (83-108) mmHg ABG HCO3 (21-25) mmol/L ABG Total CO2 (19-24) mmol/L ABG O2 Saturation (94-97) % ABG Hematocrit (34.0-46.0) % ABG Potassium (3.4-4.5) mmol/L ABG Ionized Calcium (4.5-5.3) mg/dL ABG Glucose (75-99) mg/dL ABG Lactic Acid (0.5-1.6) mmol/L Hemoglobin (13.0-17.5) gm/dL Sodium (137-145) mmol/L Chloride (98-107) mmol/L Creatinine (0.66-1.25) mg/dL Glucose (74-99) mg/dL POC Glucose (mg/dL) 141 H 140 H (75-99) mg/dL Calcium (8.4-10.2) mg/dL AST (17-59) U/L Total Protein (6.3-8.2) g/dL Albumin (3.5-5.0) g/dL Arterial Blood Potassium (3.4-4.5) mmol/L Arterial Blood Glucose (75-99) mg/dL Crossmatch 07/19/21 07/19/21 07/19/21 Range/Units 19:35 19:51 19:55 WBC 17.8 H (3.8-10.6) k/uL RBC 3.99 L (4.30-5.90) m/uL Hgb 12.3 L (13.0-17.5) gm/dL Hct 37.9 L (39.0-53.0) % Plt Count (150-450) k/uL Neutrophils # 16.1 H (1.3-7.7) k/uL Lymphocytes # 0.7 L (1.0-4.8) k/uL Monocytes # (0-1.0) k/uL PT (9.0-12.0) sec INR (<1.2) APTT (22.0-30.0) sec ABG pH (7.35-7.45) ABG pCO2 (35-45) mmHg ABG pO2 145 H (83-108) mmHg ABG HCO3 (21-25) mmol/L ABG Total CO2 (19-24) mmol/L ABG O2 Saturation 99.4 H (94-97) % ABG Hematocrit (34.0-46.0) % ABG Potassium (3.4-4.5) mmol/L ABG Ionized Calcium (4.5-5.3) mg/dL ABG Glucose (75-99) mg/dL ABG Lactic Acid (0.5-1.6) mmol/L Hemoglobin (13.0-17.5) gm/dL Sodium (137-145) mmol/L Chloride (98-107) mmol/L Creatinine (0.66-1.25) mg/dL Glucose (74-99) mg/dL POC Glucose (mg/dL) 148 H (75-99) mg/dL Calcium (8.4-10.2) mg/dL AST (17-59) U/L Total Protein (6.3-8.2) g/dL Albumin (3.5-5.0) g/dL Arterial Blood Potassium (3.4-4.5) mmol/L Arterial Blood Glucose (75-99) mg/dL Crossmatch 07/19/21 07/19/21 07/19/21 Range/Units 20:56 21:54 22:57 WBC (3.8-10.6) k/uL RBC (4.30-5.90) m/uL Hgb (13.0-17.5) gm/dL Hct (39.0-53.0) % Plt Count (150-450) k/uL Neutrophils # (1.3-7.7) k/uL Lymphocytes # (1.0-4.8) k/uL Monocytes # (0-1.0) k/uL PT (9.0-12.0) sec INR (<1.2) APTT (22.0-30.0) sec ABG pH (7.35-7.45) ABG pCO2 (35-45) mmHg ABG pO2 (83-108) mmHg ABG HCO3 (21-25) mmol/L ABG Total CO2 (19-24) mmol/L ABG O2 Saturation (94-97) % ABG Hematocrit (34.0-46.0) % ABG Potassium (3.4-4.5) mmol/L ABG Ionized Calcium (4.5-5.3) mg/dL ABG Glucose (75-99) mg/dL ABG Lactic Acid (0.5-1.6) mmol/L Hemoglobin (13.0-17.5) gm/dL Sodium (137-145) mmol/L Chloride (98-107) mmol/L Creatinine (0.66-1.25) mg/dL Glucose (74-99) mg/dL POC Glucose (mg/dL) 154 H 162 H 152 H (75-99) mg/dL Calcium (8.4-10.2) mg/dL AST (17-59) U/L Total Protein (6.3-8.2) g/dL Albumin (3.5-5.0) g/dL Arterial Blood Potassium (3.4-4.5) mmol/L Arterial Blood Glucose (75-99) mg/dL Crossmatch 07/20/21 07/20/21 07/20/21 Range/Units 00:09 01:14 01:59 WBC (3.8-10.6) k/uL RBC (4.30-5.90) m/uL Hgb (13.0-17.5) gm/dL Hct (39.0-53.0) % Plt Count (150-450) k/uL Neutrophils # (1.3-7.7) k/uL Lymphocytes # (1.0-4.8) k/uL Monocytes # (0-1.0) k/uL PT (9.0-12.0) sec INR (<1.2) APTT (22.0-30.0) sec ABG pH (7.35-7.45) ABG pCO2 (35-45) mmHg ABG pO2 (83-108) mmHg ABG HCO3 (21-25) mmol/L ABG Total CO2 (19-24) mmol/L ABG O2 Saturation (94-97) % ABG Hematocrit (34.0-46.0) % ABG Potassium (3.4-4.5) mmol/L ABG Ionized Calcium (4.5-5.3) mg/dL ABG Glucose (75-99) mg/dL ABG Lactic Acid (0.5-1.6) mmol/L Hemoglobin (13.0-17.5) gm/dL Sodium (137-145) mmol/L Chloride (98-107) mmol/L Creatinine (0.66-1.25) mg/dL Glucose (74-99) mg/dL POC Glucose (mg/dL) 152 H 142 H 137 H (75-99) mg/dL Calcium (8.4-10.2) mg/dL AST (17-59) U/L Total Protein (6.3-8.2) g/dL Albumin (3.5-5.0) g/dL Arterial Blood Potassium (3.4-4.5) mmol/L Arterial Blood Glucose (75-99) mg/dL Crossmatch 07/20/21 07/20/21 07/20/21 Range/Units 02:52 03:59 04:52 WBC (3.8-10.6) k/uL RBC (4.30-5.90) m/uL Hgb (13.0-17.5) gm/dL Hct (39.0-53.0) % Plt Count (150-450) k/uL Neutrophils # (1.3-7.7) k/uL Lymphocytes # (1.0-4.8) k/uL Monocytes # (0-1.0) k/uL PT (9.0-12.0) sec INR (<1.2) APTT (22.0-30.0) sec ABG pH (7.35-7.45) ABG pCO2 (35-45) mmHg ABG pO2 (83-108) mmHg ABG HCO3 (21-25) mmol/L ABG Total CO2 (19-24) mmol/L ABG O2 Saturation (94-97) % ABG Hematocrit (34.0-46.0) % ABG Potassium (3.4-4.5) mmol/L ABG Ionized Calcium (4.5-5.3) mg/dL ABG Glucose (75-99) mg/dL ABG Lactic Acid (0.5-1.6) mmol/L Hemoglobin (13.0-17.5) gm/dL Sodium (137-145) mmol/L Chloride (98-107) mmol/L Creatinine (0.66-1.25) mg/dL Glucose (74-99) mg/dL POC Glucose (mg/dL) 129 H 132 H 133 H (75-99) mg/dL Calcium (8.4-10.2) mg/dL AST (17-59) U/L Total Protein (6.3-8.2) g/dL Albumin (3.5-5.0) g/dL Arterial Blood Potassium (3.4-4.5) mmol/L Arterial Blood Glucose (75-99) mg/dL Crossmatch 07/20/21 07/20/21 07/20/21 Range/Units 04:55 04:55 06:04 WBC 19.9 H (3.8-10.6) k/uL RBC 4.01 L (4.30-5.90) m/uL Hgb 12.0 L (13.0-17.5) gm/dL Hct 38.1 L (39.0-53.0) % Plt Count (150-450) k/uL Neutrophils # 17.6 H (1.3-7.7) k/uL Lymphocytes # (1.0-4.8) k/uL Monocytes # 1.1 H (0-1.0) k/uL PT (9.0-12.0) sec INR (<1.2) APTT (22.0-30.0) sec ABG pH (7.35-7.45) ABG pCO2 (35-45) mmHg ABG pO2 (83-108) mmHg ABG HCO3 (21-25) mmol/L ABG Total CO2 (19-24) mmol/L ABG O2 Saturation (94-97) % ABG Hematocrit (34.0-46.0) % ABG Potassium (3.4-4.5) mmol/L ABG Ionized Calcium (4.5-5.3) mg/dL ABG Glucose (75-99) mg/dL ABG Lactic Acid (0.5-1.6) mmol/L Hemoglobin (13.0-17.5) gm/dL Sodium 134 L (137-145) mmol/L Chloride (98-107) mmol/L Creatinine 0.54 L (0.66-1.25) mg/dL Glucose 131 H (74-99) mg/dL POC Glucose (mg/dL) 132 H (75-99) mg/dL Calcium 8.2 L (8.4-10.2) mg/dL AST 68 H (17-59) U/L Total Protein 5.6 L (6.3-8.2) g/dL Albumin (3.5-5.0) g/dL Arterial Blood Potassium (3.4-4.5) mmol/L Arterial Blood Glucose (75-99) mg/dL Crossmatch 07/20/21 Range/Units 06:50 WBC (3.8-10.6) k/uL RBC (4.30-5.90) m/uL Hgb (13.0-17.5) gm/dL Hct (39.0-53.0) % Plt Count (150-450) k/uL Neutrophils # (1.3-7.7) k/uL Lymphocytes # (1.0-4.8) k/uL Monocytes # (0-1.0) k/uL PT (9.0-12.0) sec INR (<1.2) APTT (22.0-30.0) sec ABG pH (7.35-7.45) ABG pCO2 (35-45) mmHg ABG pO2 (83-108) mmHg ABG HCO3 (21-25) mmol/L ABG Total CO2 (19-24) mmol/L ABG O2 Saturation (94-97) % ABG Hematocrit (34.0-46.0) % ABG Potassium (3.4-4.5) mmol/L ABG Ionized Calcium (4.5-5.3) mg/dL ABG Glucose (75-99) mg/dL ABG Lactic Acid (0.5-1.6) mmol/L Hemoglobin (13.0-17.5) gm/dL Sodium (137-145) mmol/L Chloride (98-107) mmol/L Creatinine (0.66-1.25) mg/dL Glucose (74-99) mg/dL POC Glucose (mg/dL) 123 H (75-99) mg/dL Calcium (8.4-10.2) mg/dL AST (17-59) U/L Total Protein (6.3-8.2) g/dL Albumin (3.5-5.0) g/dL Arterial Blood Potassium (3.4-4.5) mmol/L Arterial Blood Glucose (75-99) mg/dL Crossmatch - Imaging and Cardiology Chest x-ray: image reviewed Assessment and Plan Assessment: 1. Severe aortic valve stenosis, status post aortic valve replacement 2. Two-vessel coronary artery disease, status post 2 vessel CABG 3. History of questionable presyncopal event versus TIA recently 4. Previous tobacco dependence, preoperative FEV1 96% of predicted 5. Osteoarthritis 6. Enlarged prostate 7. Remains unvaccinated against Covid Plan: 1. Continue aspirin, statin, Plavix, beta jalen therapy. Will increase beta jalen therapy as tolerated. Discontinue IV nitro 2. Continue calcium channel jalen for radial artery spasm prophylaxis, will transition to oral CCB 3. Wean O2 as tolerated. Encourage incentive spirometry use 10 times every hour while awake. Bronchodilators per pulmonology 4. Increase activity as tolerated, PT/OT/cardiac rehab consulted 5. Will monitor daily labs and x-rays. Electrolyte replacement per protocol 6. GI/DVT prophylaxis 7. Pain control per current medication regimen 8. Insulin management per primary care. Patient is not diabetic, preoperative hemoglobin A1c 5.3% 9. Continue Duarte for another 24 hours for strict accurate intake and output. Continue Flomax 10. Daily weights 11. Discontinue [place]. Connect Cordis to continuous CVP monitoring 12. Continue mediastinal/left pleural chest tubes for another 24 hours 13. More recommendations to follow
[2021-07-20] MEDS: ASPIRIN 325 MG TAB PO SCH (08:43)
[2021-07-20] MEDS: CLOPIDOGREL 75 MG TAB PO SCH (08:43)
[2021-07-20] MEDS: METOPROLOL TARTRATE 25 MG TAB PO SCH ×2 (08:43→20:21)
[2021-07-20] MEDS: ATORVASTATIN 80 MG TAB PO SCH (08:43)
--- NOTE | 2021-07-20 08:50 | XR ---
EXAMINATION TYPE: XR chest 1V portable DATE OF EXAM: 07/20/2021 Comparison: 07/19/2021 Clinical History: 71-year-old male Post Operative Cardiac Surgery Findings: Median sternotomy wires are present with post-CABG clips in the mediastinum. Prosthetic aortic valve. Heart upper limits of normal in size. Patchy retrocardiac and left basilar opacity persists. Left-si ded chest tube. No appreciable pneumothorax. Right IJ Covelo-Lamar catheter tip likely within the proxim al right main pulmonary artery. Retained epicardial pacing leads. Interval extubation. Impression: Persistent patchy retrocardiac and left basilar opacities, probably postoperative atelectasis.
[2021-07-20] MEDS ORDERED: amLODIPine 2.5 MG TAB PO SCH (09:00)
[2021-07-20] MEDS ORDERED: MAGNESIUM HYDROXIDE 2,400 MG/10 ML CUP PO PRN (09:00)
[2021-07-20] MEDS ORDERED: PANTOPRAZOLE 40 MG/10 ML VIAL IVP SCH (09:00)
[2021-07-20] MEDS ORDERED: METOPROLOL TARTRATE 12.5 MG TAB PO SCH (09:00)
[2021-07-20] MEDS ORDERED: bisacodyL 10 MG SUPP RECTAL PRN (09:00)
--- NOTE | 2021-07-20 10:20 | P.CNPUL ---
History of Present Illness Consult date: 07/20/21 Requesting physician: Ja Dudley Reason for consult: other Chief complaint: Status post aortic valve replacement, and two-vessel bypass grafting. History of present illness: Pulmonary consult dated 07/20/2021. This is a 71-year-old male, who was seen in consultation, room 267. The patient is postop day #1, status post aortic valve replacement surgery for severe aortic stenosis, two-vessel bypass grafting, including YEE to LAD, and radial artery to obtuse marginal artery, clipping of a left atrial appendage, and intraoperative transesophageal echocardiogram. The patient was extubated about 5 hours and 15 minutes after leaving the operating room. Currently he is resting comfortably. He's on 3 L nasal cannula, Lactated Ringer's at 50 mL an hour, Cardizem 5 mg an hour, and insulin drip at 1.5 units an hour. He has no complaints. White count of 19.9, hemoglobin 12, hematocrit 38.1, and platelet count 168,000. Sodium 134, potassium 4, chlorides 106, CO2 24, BUN 14, and creatinine 0.54. Chest x-ray shows some patchy bibasilar infiltrates or atelectasis. Review of Systems REVIEW OF SYSTEMS: CONSTITUTIONAL: [Negative.] NEUROLOGIC: [ Negative.] HEENT: [ Negative.] CARDIAC: Pain at the surgical site. PULMONARY: [Negative.] GI: [Negative.] : [Negative.] RHEUMATOLOGIC: [ Negative.] IMMUNOLOGIC: [ Negative.] ENDOCRINE: [Negative. ] DERMATOLOGIC: [Negative.] Past Medical History Past Medical History: Osteoarthritis (OA), Prostate Disorder Additional Past Medical History / Comment(s): Heart Murmur, Mild Aortic Stenosis, hx kidney stones hx, enlarged prostate. History of Any Multi-Drug Resistant Organisms: None Reported Past Surgical History: Heart Catheterization, Joint Replacement Additional Past Surgical History / Comment(s): Lithotripsy, surgery to remove bladder stone, left knee replaced Past Anesthesia/Blood Transfusion Reactions: No Reported Reaction Smoking Status: Former smoker - Past Family History Mother Family Medical History: No Reported History Medications and Allergies Home Medications Medication Instructions Recorded Confirmed Type Aspirin [Adult Low Dose Aspirin EC] 81 mg PO W/SUPPER 07/06/21 07/19/21 History Tamsulosin [Flomax] 0.4 mg PO 1200 07/06/21 07/19/21 History Atorvastatin [Lipitor] 80 mg PO DAILY 07/18/21 07/19/21 History Metoprolol Succinate (ER) [Toprol 25 mg PO DAILY 07/18/21 07/19/21 History Xl] Mupirocin [Mupirocin 2%] 1 applic NASAL BID #1 tub 07/18/21 07/19/21 Rx Allergies Allergy/AdvReac Type Severity Reaction Status Date / Time bee venom protein (honey bee) Allergy Severe Anaphylaxis Verified 07/19/21 06:22 insect venom Allergy Severe Unknown Verified 07/19/21 06:22 Physical Exam Osteopathic Statement: *. No significant issues noted on an osteopathic structural exam other than those noted in the History and Physical/Consult. Vitals: Vital Signs Temp Pulse Resp BP Pulse Ox FiO2 07/20/21 08:43 74 07/20/21 08:29 71 07/20/21 07:00 66 16 120/71 07/20/21 06:30 71 12 97 07/20/21 06:00 73 16 118/70 97 07/20/21 05:30 82 14 132/73 94 L 07/20/21 05:00 77 12 129/74 95 07/20/21 04:30 75 12 95 07/20/21 04:00 81 15 119/71 07/20/21 03:30 78 15 95 07/20/21 03:00 77 12 124/75 95 07/20/21 02:30 76 14 95 07/20/21 02:00 81 14 124/75 94 L 07/20/21 01:30 76 14 95 07/20/21 01:00 75 14 95 07/20/21 00:30 78 16 95 07/20/21 00:00 81 14 95 07/19/21 23:30 84 15 95 07/19/21 23:02 83 13 95 07/19/21 23:00 85 16 94 L 07/19/21 22:30 85 15 94 L 07/19/21 22:00 80 15 94 L 07/19/21 21:30 80 14 95 07/19/21 21:00 78 14 96 07/19/21 20:30 78 14 96 07/19/21 20:00 81 16 144/90 96 50 07/19/21 19:40 50 07/19/21 19:30 73 14 99 07/19/21 19:25 75 07/19/21 19:16 50 07/19/21 19:12 72 07/19/21 19:00 71 3 L 100 50 07/19/21 18:45 71 7 L 100 07/19/21 18:30 70 4 L 100 07/19/21 18:15 65 6 L 100 07/19/21 18:00 64 9 L 100 07/19/21 17:45 63 8 L 100 07/19/21 17:30 63 14 100 07/19/21 17:15 63 11 L 100 07/19/21 17:00 63 16 100 07/19/21 16:45 63 15 100 07/19/21 16:30 64 14 100 07/19/21 16:15 65 14 100 07/19/21 16:00 95.7 F L 65 16 100 50 07/19/21 15:45 67 14 100 07/19/21 15:30 68 10 L 100 50 07/19/21 15:15 70 11 L 100 07/19/21 15:00 71 9 L 100 07/19/21 14:45 70 0 L 100 07/19/21 14:43 28 H 07/19/21 14:40 100 07/19/21 14:17 100 Intake and Output 07/19/21 07/20/21 07/20/21 22:59 06:59 14:59 Intake Total 537.699 9215.490 59 Output Total 1335 1265 120 Balance -585.314 -229.510 -61 Intake: IV 333 952 59 ACETAMINOPHEN IV (For NPO 400 ) 1,000 mg In Empty Bag 1 bag @ 400 mls/hr IVPB Q6H [facility] Rx#:[id number] Lactated Ringers 1,000 ml 150 400 50 @ 20 mls/hr IV .Q24H [facility] Rx#:[id number] cardiac output 120 80 pressure bags 63 72 9 Intake, IV Titration 416.686 83.490 Amount ACETAMINOPHEN IV (For NPO 100 ) 1,000 mg In Empty Bag 1 bag @ 400 mls/hr IVPB Q6H [facility] Rx#:[id number] Clevidipine Butyrate 25 7.666 66.767 mg In Empty Bag 1 bag @ 1 MG/HR 2 mls/hr IV .Q24H [facility] Rx#:[id number] Insulin Regular 100 unit 10.361 16.723 In Sodium Chloride 0.9% 100 ml @ Per Protocol IV .Q0M [facility] Rx#:[id number] Lactated Ringers 1,000 ml 200 @ 20 mls/hr IV .Q24H [facility] Rx#:[id number] ceFAZolin 2 gm In Sodium 50 Chloride 0.9% 50 ml @ Per Protocol IVPB ONCE ONE Rx#:[id number] propofoL 1,000 mg In 48.659 Empty Bag 1 bag @ Titrate IV .Q0M [facility] Rx#: [id number] Output: Chest Tube Drainage 670 480 60 Mediastinal and left 670 480 60 pleural Urine 665 785 60 Other: Voiding Method Indwelling Catheter Indwelling Catheter Weight 100.6 kg ABP, PAP, CO, CI - Last 8 Hours Arterial Blood Pressure 127/53 Arterial Blood Pressure 144/56 Arterial Blood Pressure 116/72 Arterial Blood Pressure 121/54 Arterial Blood Pressure 143/60 Arterial Blood Pressure 140/59 Arterial Blood Pressure 139/59 Arterial Blood Pressure 143/60 Pulmonary Artery Pressure 12/4 Pulmonary Artery Pressure 11/2 Pulmonary Artery Pressure 24/13 Pulmonary Artery Pressure 23/13 Pulmonary Artery Pressure 23/13 Pulmonary Artery Pressure 22/12 Pulmonary Artery Pressure 21/12 Pulmonary Artery Pressure 22/12 Pulmonary Artery Pressure 24/13 Cardiac Output 4.2 Cardiac Output 5.9 Cardiac Index 1.9 Cardiac Index 2.7 No acute distress, oriented 3. Currently on 3 L nasal cannula. No respiratory distress, use of accessory muscles. HEENT examination is grossly unremarkable. Neck supple. Full range of motion. No adenopathy thyromegaly or neck vein distention. Cardiovascular examination reveals regular rhythm rate. S1-S2 normal. No S3 or S4. No discernible murmur noted. Heart rate 74 bpm. Lungs reveal scattered bilateral rhonchi. No crackles. Breath sounds equal bilaterally. Saturations are 97% on 3 L nasal cannula. Abdomen soft bowel sounds are heard. No masses or tenderness. Extremities are intact. No cyanosis clubbing or edema. Skin is without rash or lesion. Neurologic examination is brief but nonfocal. Results - Laboratory Findings CBC and BMP: 07/20/21 04:55 07/20/21 04:55 ABG ABG pH 7.36 (7.35-7.45) 07/19/21 19:35 ABG pCO2 41 mmHg (35-45) 07/19/21 19:35 ABG pO2 145 mmHg (83-108) H 07/19/21 19:35 ABG O2 Saturation 99.4 % (94-97) H 07/19/21 19:35 PT/INR, D-dimer PT 12.8 sec (9.0-12.0) H 07/19/21 14:50 INR 1.2 (<1.2) H 07/19/21 14:50 Abnormal lab findings: Abnormal Labs 07/18/21 07/19/21 07/19/21 08:57 09:07 10:21 WBC RBC Hgb Hct Plt Count Neutrophils # Lymphocytes # Monocytes # PT INR APTT ABG pH ABG pCO2 ABG pO2 192 H 200 H ABG HCO3 27 H 28 H ABG Total CO2 28 H 29 H ABG O2 Saturation 99.5 H 99.7 H ABG Hematocrit ABG Potassium ABG Ionized Calcium ABG Glucose 109 H ABG Lactic Acid 1.9 H 1.7 H Hemoglobin 12.9 L 12.5 L Sodium Chloride Creatinine Glucose POC Glucose (mg/dL) Calcium AST Total Protein Albumin Arterial Blood Potassium Arterial Blood Glucose 109 H Crossmatch See Detail 07/19/21 07/19/21 07/19/21 10:21 11:18 11:53 WBC RBC Hgb Hct Plt Count Neutrophils # Lymphocytes # Monocytes # PT INR APTT ABG pH ABG pCO2 46 H ABG pO2 377 H 356 H 298 H ABG HCO3 26 H 27 H 28 H ABG Total CO2 27 H 28 H 29 H ABG O2 Saturation 100.0 H 100.0 H 99.9 H ABG Hematocrit 30 L 31 L 32 L ABG Potassium 5.0 H 4.8 H 4.7 H ABG Ionized Calcium 4.1 L 4.3 L 4.3 L ABG Glucose 104 H 116 H 128 H ABG Lactic Acid 2.0 H 2.3 H* 2.2 H* Hemoglobin 9.9 L 10.2 L 10.3 L Sodium Chloride Creatinine Glucose POC Glucose (mg/dL) Calcium AST Total Protein Albumin Arterial Blood Potassium 5.0 H 4.8 H 4.7 H Arterial Blood Glucose 104 H 116 H 128 H Crossmatch 07/19/21 07/19/21 07/19/21 12:23 12:58 14:50 WBC 16.2 H RBC 3.33 L Hgb 10.3 L D Hct 31.3 L Plt Count 141 L Neutrophils # 14.3 H Lymphocytes # Monocytes # PT INR APTT ABG pH ABG pCO2 ABG pO2 390 H 362 H ABG HCO3 27 H 27 H ABG Total CO2 29 H 28 H ABG O2 Saturation 100.0 H 99.9 H ABG Hematocrit 32 L 30 L ABG Potassium 4.6 H 4.8 H ABG Ionized Calcium 4.3 L 4.2 L ABG Glucose 135 H 131 H ABG Lactic Acid 2.4 H* 2.9 H* Hemoglobin 10.3 L 9.9 L Sodium Chloride Creatinine Glucose POC Glucose (mg/dL) Calcium AST Total Protein Albumin Arterial Blood Potassium 4.6 H 4.8 H Arterial Blood Glucose 135 H 131 H Crossmatch 07/19/21 07/19/21 07/19/21 14:50 14:50 14:50 WBC RBC Hgb Hct Plt Count Neutrophils # Lymphocytes # Monocytes # PT 12.8 H INR 1.2 H APTT 32.9 H ABG pH ABG pCO2 ABG pO2 ABG HCO3 ABG Total CO2 ABG O2 Saturation ABG Hematocrit ABG Potassium ABG Ionized Calcium ABG Glucose ABG Lactic Acid Hemoglobin Sodium Chloride 108 H Creatinine 0.60 L Glucose 122 H POC Glucose (mg/dL) 125 H Calcium 7.4 L AST Total Protein 4.9 L Albumin 3.0 L Arterial Blood Potassium Arterial Blood Glucose Crossmatch 07/19/21 07/19/21 07/19/21 15:27 16:02 16:54 WBC RBC Hgb Hct Plt Count Neutrophils # Lymphocytes # Monocytes # PT INR APTT ABG pH 7.32 L ABG pCO2 49 H ABG pO2 324 H ABG HCO3 ABG Total CO2 27 H ABG O2 Saturation 100.0 H ABG Hematocrit ABG Potassium ABG Ionized Calcium ABG Glucose ABG Lactic Acid Hemoglobin Sodium Chloride Creatinine Glucose POC Glucose (mg/dL) 131 H 133 H Calcium AST Total Protein Albumin Arterial Blood Potassium Arterial Blood Glucose Crossmatch 07/19/21 07/19/21 07/19/21 16:56 18:07 18:57 WBC 17.4 H RBC 3.80 L Hgb 11.4 L Hct 35.9 L Plt Count Neutrophils # 15.4 H Lymphocytes # 0.9 L Monocytes # PT INR APTT ABG pH ABG pCO2 ABG pO2 ABG HCO3 ABG Total CO2 ABG O2 Saturation ABG Hematocrit ABG Potassium ABG Ionized Calcium ABG Glucose ABG Lactic Acid Hemoglobin Sodium Chloride Creatinine Glucose POC Glucose (mg/dL) 141 H 140 H Calcium AST Total Protein Albumin Arterial Blood Potassium Arterial Blood Glucose Crossmatch 07/19/21 07/19/21 07/19/21 19:35 19:51 19:55 WBC 17.8 H RBC 3.99 L Hgb 12.3 L Hct 37.9 L Plt Count Neutrophils # 16.1 H Lymphocytes # 0.7 L Monocytes # PT INR APTT ABG pH ABG pCO2 ABG pO2 145 H ABG HCO3 ABG Total CO2 ABG O2 Saturation 99.4 H ABG Hematocrit ABG Potassium ABG Ionized Calcium ABG Glucose ABG Lactic Acid Hemoglobin Sodium Chloride Creatinine Glucose POC Glucose (mg/dL) 148 H Calcium AST Total Protein Albumin Arterial Blood Potassium Arterial Blood Glucose Crossmatch 07/19/21 07/19/21 07/19/21 20:56 21:54 22:57 WBC RBC Hgb Hct Plt Count Neutrophils # Lymphocytes # Monocytes # PT INR APTT ABG pH ABG pCO2 ABG pO2 ABG HCO3 ABG Total CO2 ABG O2 Saturation ABG Hematocrit ABG Potassium ABG Ionized Calcium ABG Glucose ABG Lactic Acid Hemoglobin Sodium Chloride Creatinine Glucose POC Glucose (mg/dL) 154 H 162 H 152 H Calcium AST Total Protein Albumin Arterial Blood Potassium Arterial Blood Glucose Crossmatch 07/20/21 07/20/21 07/20/21 00:09 01:14 01:59 WBC RBC Hgb Hct Plt Count Neutrophils # Lymphocytes # Monocytes # PT INR APTT ABG pH ABG pCO2 ABG pO2 ABG HCO3 ABG Total CO2 ABG O2 Saturation ABG Hematocrit ABG Potassium ABG Ionized Calcium ABG Glucose ABG Lactic Acid Hemoglobin Sodium Chloride Creatinine Glucose POC Glucose (mg/dL) 152 H 142 H 137 H Calcium AST Total Protein Albumin Arterial Blood Potassium Arterial Blood Glucose Crossmatch 07/20/21 07/20/21 07/20/21 02:52 03:59 04:52 WBC RBC Hgb Hct Plt Count Neutrophils # Lymphocytes # Monocytes # PT INR APTT ABG pH ABG pCO2 ABG pO2 ABG HCO3 ABG Total CO2 ABG O2 Saturation ABG Hematocrit ABG Potassium ABG Ionized Calcium ABG Glucose ABG Lactic Acid Hemoglobin Sodium Chloride Creatinine Glucose POC Glucose (mg/dL) 129 H 132 H 133 H Calcium AST Total Protein Albumin Arterial Blood Potassium Arterial Blood Glucose Crossmatch 07/20/21 07/20/21 07/20/21 04:55 04:55 06:04 WBC 19.9 H RBC 4.01 L Hgb 12.0 L Hct 38.1 L Plt Count Neutrophils # 17.6 H Lymphocytes # Monocytes # 1.1 H PT INR APTT ABG pH ABG pCO2 ABG pO2 ABG HCO3 ABG Total CO2 ABG O2 Saturation ABG Hematocrit ABG Potassium ABG Ionized Calcium ABG Glucose ABG Lactic Acid Hemoglobin Sodium 134 L Chloride Creatinine 0.54 L Glucose 131 H POC Glucose (mg/dL) 132 H Calcium 8.2 L AST 68 H Total Protein 5.6 L Albumin Arterial Blood Potassium Arterial Blood Glucose Crossmatch 07/20/21 07/20/21 06:50 08:10 WBC RBC Hgb Hct Plt Count Neutrophils # Lymphocytes # Monocytes # PT INR APTT ABG pH ABG pCO2 ABG pO2 ABG HCO3 ABG Total CO2 ABG O2 Saturation ABG Hematocrit ABG Potassium ABG Ionized Calcium ABG Glucose ABG Lactic Acid Hemoglobin Sodium Chloride Creatinine Glucose POC Glucose (mg/dL) 123 H 147 H Calcium AST Total Protein Albumin Arterial Blood Potassium Arterial Blood Glucose Crossmatch - Diagnostic Findings Chest x-ray: image reviewed Assessment and Plan Assessment: Postop day #1, status post aortic valve replacement for severe aortic stenosis, and two-vessel bypass grafting, including YEE to LAD, and radial artery to OM, secondary to CAD, left atrial appendage ligation, and intraoperative transesophageal echocardiogram. Routine postoperative ventilator management. History of CAD. History of hypertension. History of severe aortic stenosis. History of hyperlipidemia. History of kidney stones. History of BPH. Plan: Plan dated 07/20/2021. The patient seems be doing relatively well. The patient has been weaned down to 3 L nasal O2. He is getting lactated Ringer's at 50 mL an hour, and insulin drip at 1.5 units an hour, and a Cardizem drip at 5 mg an hour. We will continue to follow. Labs, x-rays, and medications are reviewed. His overall prognosis remains guarded. We will continue to follow the patient and make recommendations where appropriate. The patient does not appear to have any substantial chronic lung disease. Time with Patient: Greater than 30
[2021-07-20 10:37] VITALS: BMI 31.8
--- NOTE | 2021-07-20 11:18 | P.CONS ---
History of Present Illness - Reason for Consult Consult date: 07/20/21 Medical management - History of Present Illness HISTORY OF PRESENT ILLNESS This is a 71-year-old male will be newly established with Dr. Reeves with past medical history of kidney stones, benign prostatic hypertrophy, gastroesophageal reflux disease, hypothyroidism. Patient gives history that he has always been very active has been living in [place] and recently moved back to [place]. 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 He has noticed recently that he has had more fatigue with both of these activities and also experiencing some dyspnea with exertion. Patient gives history that he was sitting at a table across from his and developed TIA like symptoms but did not seek treatment at that time. He talked to his neighbor and neighbor recommended that he see Dr. Steele. Patient has been established with Dr. Steele and underwent CORTEZ which revealed normal systolic function, trileaflet aortic valve with severe aortic stenosis, [id number] mitral regurgitation, [id number] tricuspid regurgitation. Cardiac catheterization revealed severe two-vessel coronary artery disease involving the left circumflex and LAD with recommendations for coronary artery bypass grafting to the LAD and OM and aortic valve replacement. Patient has been brought into the hospital by Dr. Dudley and is status post aortic valve replacement with bioprosthetic aortic valve and coronary artery bypass grafting 2 with left internal mammary artery, left anterior descending artery, radial artery of the aorta to the left obtuse marginal artery, clip ligation of the left atrial appendage. Patient is postop day #1. He has been successfully extubated and remains in the intensive care unit.. Repeat chest x- ray reveals WBC 19.9, hemoglobin 12, platelet count 168. Sodium 134, potassium 4.0, chloride 106, CO2 24, BUN 14, creatinine 0.54. Blood sugar 131. REVIEW OF SYSTEMS Constitutional: No fever, no chills, no night sweats. No weight change. No weakness, reports fatigue no lethargy. No daytime sleepiness. EENT: No headache. No blurred vision or double vision, no loss of vision. No loss of Hearing, no ringing in the ears, no dizziness. No nasal drainage or congestion. No epistaxis. No sore throat. Lungs: No shortness of breath, cough, no sputum production. No wheezing. Cardiovascular: Generalized chest discomfort, no lower extremity edema. No palpitations. No paroxysmal nocturnal dyspnea. No orthopnea. No lighthead edness or dizziness. No syncopal episodes. Abdominal: No abdominal pain. No nausea, vomiting. No diarrhea. No constipation. No bloody or tarry stools. No loss of appetite. Genitourinary: No dysuria, increased frequency, urgency. No urinary retention. Musculoskeletal: No myalgias. No muscle weakness, no gait dysfunction, no frequent falls. No back pain. No neck pain. Integumentary: No wounds, no lesions. No rash or pruritus. No unusual bruising. No change in hair or nails. Neurologic: No aphasia. No facial droop. No change in mentation. No head injury. No headache. No paralysis. No paresthesia. Psychiatric: No depression. No anxiety. No mood swings. Endocrine: No abnormal blood sugars. No weight change. No excessive sweating or thirst. No cold intolerance. SOCIAL HISTORY [ ]. FAMILY HISTORY [ ]. PHYSICAL EXAMINATION Gen: This is a 71-year-old male. He is resting on recliner in the intensive care unit and appears to be comfortable at rest HEENT: Head is atraumatic, normocephalic. Pupils equal, round. Sclerae is anicte zuhair. NECK: Supple. No JVD. No lymphadenopathy. No thyromegaly. Right IJ [place]. LUNGS: Clear to auscultation. No wheezes or rhonchi. No intercostal retractions. Mediastinal/left pleural chest tubes HEART: Regular rate and rhythm. No murmur. inclinometer tester sinus rhythm. ABDOMEN: Soft. Bowel sounds are present. No masses. No tenderness. Duarte draining clear yashira urine EXTREMITIES: No pedal edema. No calf tenderness. NEUROLOGICAL: Patient is awake, alert and oriented x3. Cranial nerves 2 through 12 are grossly intact. ASSESSMENT AND PLAN 1. Coronary artery disease status post coronary artery bypass grafting 2 with left internal mammary artery, left anterior descending artery, radial artery of the aorta to the left obtuse marginal artery, clip ligation of the left atrial appendage. Patient is postop day #1. Continue current management per cardiothoracic team, reactor operator. Patient is currently on Cardizem drip. Insulin drip may be discontinued today and start patient on Levemir 10 units daily and NovoLog scale. If blood sugars remain within normal limits, Levemir may be discontinued in the next 24-48 hours. 2. Severe aortic stenosis status post aortic valve replacement with bioprosthetic aortic valve. Patient is postop day #1. Continue current management per cardiothoracic team, reactor operator. 3. Benign prostatic hypertrophy. Monitor for urinary retention. Patient started on Flomax 0.4 mg daily. 4. History of kidney stones, stable. No complaints. 5. Remote history of tobacco use. 6. Generalized osteoarthritis. 7. GI prophylaxis. Protonix. 8. DVT prophylaxis. Heparin subcu. 9. Possible history of TIA symptoms. Patient did not seek treatment at the time. 10. History of hypothyroidism, gastroesophageal reflux disease resolved with weight loss. Patient will be admitted to the hospital for a minimum of 2 night stay. DISCHARGE PLAN TBD. Impression and plan of care have been directed as dictated by the signing physician. Stpeh Santiago nurse practitioner acting as scribe for signing physician. Past Medical History Past Medical History: Osteoarthritis (OA), Prostate Disorder Additional Past Medical History / Comment(s): Heart Murmur, Mild Aortic Stenosis, hx kidney stones hx, enlarged prostate. History of Any Multi-Drug Resistant Organisms: None Reported Past Surgical History: Heart Catheterization, Joint Replacement Additional Past Surgical History / Comment(s): Lithotripsy, surgery to remove bladder stone, left knee replaced Past Anesthesia/Blood Transfusion Reactions: No Reported Reaction Smoking Status: Former smoker - Past Family History Mother Family Medical History: No Reported History Medications and Allergies Home Medications Medication Instructions Recorded Confirmed Type Aspirin [Adult Low Dose Aspirin EC] 81 mg PO W/SUPPER 07/06/21 07/19/21 History Tamsulosin [Flomax] 0.4 mg PO 1200 07/06/21 07/19/21 History Atorvastatin [Lipitor] 80 mg PO DAILY 07/18/21 07/19/21 History Metoprolol Succinate (ER) [Toprol 25 mg PO DAILY 07/18/21 07/19/21 History Xl] Mupirocin [Mupirocin 2%] 1 applic NASAL BID #1 tub 07/18/21 07/19/21 Rx Allergies Allergy/AdvReac Type Severity Reaction Status Date / Time bee venom protein (honey bee) Allergy Severe Anaphylaxis Verified 07/19/21 06:22 insect venom Allergy Severe Unknown Verified 07/19/21 06:22 Physical Exam Vitals: Vital Signs Temp Pulse Resp BP Pulse Ox FiO2 07/20/21 08:43 74 07/20/21 08:29 71 07/20/21 07:00 66 16 120/71 07/20/21 06:30 71 12 97 07/20/21 06:00 73 16 118/70 97 07/20/21 05:30 82 14 132/73 94 L 07/20/21 05:00 77 12 129/74 95 07/20/21 04:30 75 12 95 07/20/21 04:00 81 15 119/71 07/20/21 03:30 78 15 95 07/20/21 03:00 77 12 124/75 95 07/20/21 02:30 76 14 95 07/20/21 02:00 81 14 124/75 94 L 07/20/21 01:30 76 14 95 07/20/21 01:00 75 14 95 07/20/21 00:30 78 16 95 07/20/21 00:00 81 14 95 07/19/21 23:30 84 15 95 07/19/21 23:02 83 13 95 07/19/21 23:00 85 16 94 L 07/19/21 22:30 85 15 94 L 07/19/21 22:00 80 15 94 L 07/19/21 21:30 80 14 95 07/19/21 21:00 78 14 96 07/19/21 20:30 78 14 96 07/19/21 20:00 81 16 144/90 96 50 07/19/21 19:40 50 07/19/21 19:30 73 14 99 07/19/21 19:25 75 07/19/21 19:16 50 07/19/21 19:12 72 07/19/21 19:00 71 3 L 100 50 07/19/21 18:45 71 7 L 100 07/19/21 18:30 70 4 L 100 07/19/21 18:15 65 6 L 100 07/19/21 18:00 64 9 L 100 07/19/21 17:45 63 8 L 100 07/19/21 17:30 63 14 100 07/19/21 17:15 63 11 L 100 07/19/21 17:00 63 16 100 07/19/21 16:45 63 15 100 07/19/21 16:30 64 14 100 07/19/21 16:15 65 14 100 07/19/21 16:00 95.7 F L 65 16 100 50 07/19/21 15:45 67 14 100 07/19/21 15:30 68 10 L 100 50 07/19/21 15:15 70 11 L 100 07/19/21 15:00 71 9 L 100 07/19/21 14:45 70 0 L 100 07/19/21 14:43 28 H 07/19/21 14:40 100 07/19/21 14:17 100 Intake and Output 07/19/21 07/20/21 07/20/21 22:59 06:59 14:59 Intake Total 462.586 3460.490 59 Output Total 1335 1265 120 Balance -585.314 -229.510 -61 Intake: IV 333 952 59 ACETAMINOPHEN IV (For NPO 400 ) 1,000 mg In Empty Bag 1 bag @ 400 mls/hr IVPB Q6H [facility] Rx#:[id number] Lactated Ringers 1,000 ml 150 400 50 @ 20 mls/hr IV .Q24H [facility] Rx#:[id number] cardiac output 120 80 pressure bags 63 72 9 Intake, IV Titration 416.686 83.490 Amount ACETAMINOPHEN IV (For NPO 100 ) 1,000 mg In Empty Bag 1 bag @ 400 mls/hr IVPB Q6H [facility] Rx#:[id number] Clevidipine Butyrate 25 7.666 66.767 mg In Empty Bag 1 bag @ 1 MG/HR 2 mls/hr IV .Q24H [facility] Rx#:[id number] Insulin Regular 100 unit 10.361 16.723 In Sodium Chloride 0.9% 100 ml @ Per Protocol IV .Q0M [facility] Rx#:[id number] Lactated Ringers 1,000 ml 200 @ 20 mls/hr IV .Q24H [facility] Rx#:[id number] ceFAZolin 2 gm In Sodium 50 Chloride 0.9% 50 ml @ Per Protocol IVPB ONCE ONE Rx#:[id number] propofoL 1,000 mg In 48.659 Empty Bag 1 bag @ Titrate IV .Q0M [facility] Rx#: [id number] Output: Chest Tube Drainage 670 480 60 Mediastinal and left 670 480 60 pleural Urine 665 785 60 Other: Voiding Method Indwelling Catheter Indwelling Catheter Weight 100.6 kg ABP, PAP, CO, CI - Last 8 Hours Arterial Blood Pressure 127/53 Arterial Blood Pressure 144/56 Arterial Blood Pressure 116/72 Arterial Blood Pressure 121/54 Arterial Blood Pressure 143/60 Arterial Blood Pressure 140/59 Arterial Blood Pressure 139/59 Arterial Blood Pressure 143/60 Arterial Blood Pressure 142/60 Arterial Blood Pressure 137/59 Arterial Blood Pressure 131/58 Pulmonary Artery Pressure 12/4 Pulmonary Artery Pressure 11/2 Pulmonary Artery Pressure 24/13 Pulmonary Artery Pressure 23/13 Pulmonary Artery Pressure 23/13 Pulmonary Artery Pressure 22/12 Pulmonary Artery Pressure 21/12 Pulmonary Artery Pressure 22/12 Pulmonary Artery Pressure 24/13 Pulmonary Artery Pressure 27/13 Pulmonary Artery Pressure 24/13 Pulmonary Artery Pressure 22/13 Cardiac Output 4.2 Cardiac Output 5.9 Cardiac Index 1.9 Cardiac Index 2.7 Results CBC & Chem 7: 07/20/21 04:55 07/20/21 04:55 Labs: Abnormal Lab Results - Last 24 Hours (Table) 07/18/21 07/19/21 07/19/21 Range/Units 08:57 09:07 10:21 WBC (3.8-10.6) k/uL RBC (4.30-5.90) m/uL Hgb (13.0-17.5) gm/dL Hct (39.0-53.0) % Plt Count (150-450) k/uL Neutrophils # (1.3-7.7) k/uL Lymphocytes # (1.0-4.8) k/uL Monocytes # (0-1.0) k/uL PT (9.0-12.0) sec INR (<1.2) APTT (22.0-30.0) sec ABG pH (7.35-7.45) ABG pCO2 (35-45) mmHg ABG pO2 192 H 200 H (83-108) mmHg ABG HCO3 27 H 28 H (21-25) mmol/L ABG Total CO2 28 H 29 H (19-24) mmol/L ABG O2 Saturation 99.5 H 99.7 H (94-97) % ABG Hematocrit (34.0-46.0) % ABG Potassium (3.4-4.5) mmol/L ABG Ionized Calcium (4.5-5.3) mg/dL ABG Glucose 109 H (75-99) mg/dL ABG Lactic Acid 1.9 H 1.7 H (0.5-1.6) mmol/L Hemoglobin 12.9 L 12.5 L (13.0-17.5) gm/dL Sodium (137-145) mmol/L Chloride (98-107) mmol/L Creatinine (0.66-1.25) mg/dL Glucose (74-99) mg/dL POC Glucose (mg/dL) (75-99) mg/dL Calcium (8.4-10.2) mg/dL AST (17-59) U/L Total Protein (6.3-8.2) g/dL Albumin (3.5-5.0) g/dL Arterial Blood Potassium (3.4-4.5) mmol/L Arterial Blood Glucose 109 H (75-99) mg/dL Crossmatch See Detail 07/19/21 07/19/21 07/19/21 Range/Units 10:21 11:18 11:53 WBC (3.8-10.6) k/uL RBC (4.30-5.90) m/uL Hgb (13.0-17.5) gm/dL Hct (39.0-53.0) % Plt Count (150-450) k/uL Neutrophils # (1.3-7.7) k/uL Lymphocytes # (1.0-4.8) k/uL Monocytes # (0-1.0) k/uL PT (9.0-12.0) sec INR (<1.2) APTT (22.0-30.0) sec ABG pH (7.35-7.45) ABG pCO2 46 H (35-45) mmHg ABG pO2 377 H 356 H 298 H (83-108) mmHg ABG HCO3 26 H 27 H 28 H (21-25) mmol/L ABG Total CO2 27 H 28 H 29 H (19-24) mmol/L ABG O2 Saturation 100.0 H 100.0 H 99.9 H (94-97) % ABG Hematocrit 30 L 31 L 32 L (34.0-46.0) % ABG Potassium 5.0 H 4.8 H 4.7 H (3.4-4.5) mmol/L ABG Ionized Calcium 4.1 L 4.3 L 4.3 L (4.5-5.3) mg/dL ABG Glucose 104 H 116 H 128 H (75-99) mg/dL ABG Lactic Acid 2.0 H 2.3 H* 2.2 H* (0.5-1.6) mmol/L Hemoglobin 9.9 L 10.2 L 10.3 L (13.0-17.5) gm/dL Sodium (137-145) mmol/L Chloride (98-107) mmol/L Creatinine (0.66-1.25) mg/dL Glucose (74-99) mg/dL POC Glucose (mg/dL) (75-99) mg/dL Calcium (8.4-10.2) mg/dL AST (17-59) U/L Total Protein (6.3-8.2) g/dL Albumin (3.5-5.0) g/dL Arterial Blood Potassium 5.0 H 4.8 H 4.7 H (3.4-4.5) mmol/L Arterial Blood Glucose 104 H 116 H 128 H (75-99) mg/dL Crossmatch 07/19/21 07/19/21 07/19/21 Range/Units 12:23 12:58 14:50 WBC 16.2 H (3.8-10.6) k/uL RBC 3.33 L (4.30-5.90) m/uL Hgb 10.3 L D (13.0-17.5) gm/dL Hct 31.3 L (39.0-53.0) % Plt Count 141 L (150-450) k/uL Neutrophils # 14.3 H (1.3-7.7) k/uL Lymphocytes # (1.0-4.8) k/uL Monocytes # (0-1.0) k/uL PT (9.0-12.0) sec INR (<1.2) APTT (22.0-30.0) sec ABG pH (7.35-7.45) ABG pCO2 (35-45) mmHg ABG pO2 390 H 362 H (83-108) mmHg ABG HCO3 27 H 27 H (21-25) mmol/L ABG Total CO2 29 H 28 H (19-24) mmol/L ABG O2 Saturation 100.0 H 99.9 H (94-97) % ABG Hematocrit 32 L 30 L (34.0-46.0) % ABG Potassium 4.6 H 4.8 H (3.4-4.5) mmol/L ABG Ionized Calcium 4.3 L 4.2 L (4.5-5.3) mg/dL ABG Glucose 135 H 131 H (75-99) mg/dL ABG Lactic Acid 2.4 H* 2.9 H* (0.5-1.6) mmol/L Hemoglobin 10.3 L 9.9 L (13.0-17.5) gm/dL Sodium (137-145) mmol/L Chloride (98-107) mmol/L Creatinine (0.66-1.25) mg/dL Glucose (74-99) mg/dL POC Glucose (mg/dL) (75-99) mg/dL Calcium (8.4-10.2) mg/dL AST (17-59) U/L Total Protein (6.3-8.2) g/dL Albumin (3.5-5.0) g/dL Arterial Blood Potassium 4.6 H 4.8 H (3.4-4.5) mmol/L Arterial Blood Glucose 135 H 131 H (75-99) mg/dL Crossmatch 07/19/21 07/19/21 07/19/21 Range/Units 14:50 14:50 14:50 WBC (3.8-10.6) k/uL RBC (4.30-5.90) m/uL Hgb (13.0-17.5) gm/dL Hct (39.0-53.0) % Plt Count (150-450) k/uL Neutrophils # (1.3-7.7) k/uL Lymphocytes # (1.0-4.8) k/uL Monocytes # (0-1.0) k/uL PT 12.8 H (9.0-12.0) sec INR 1.2 H (<1.2) APTT 32.9 H (22.0-30.0) sec ABG pH (7.35-7.45) ABG pCO2 (35-45) mmHg ABG pO2 (83-108) mmHg ABG HCO3 (21-25) mmol/L ABG Total CO2 (19-24) mmol/L ABG O2 Saturation (94-97) % ABG Hematocrit (34.0-46.0) % ABG Potassium (3.4-4.5) mmol/L ABG Ionized Calcium (4.5-5.3) mg/dL ABG Glucose (75-99) mg/dL ABG Lactic Acid (0.5-1.6) mmol/L Hemoglobin (13.0-17.5) gm/dL Sodium (137-145) mmol/L Chloride 108 H (98-107) mmol/L Creatinine 0.60 L (0.66-1.25) mg/dL Glucose 122 H (74-99) mg/dL POC Glucose (mg/dL) 125 H (75-99) mg/dL Calcium 7.4 L (8.4-10.2) mg/dL AST (17-59) U/L Total Protein 4.9 L (6.3-8.2) g/dL Albumin 3.0 L (3.5-5.0) g/dL Arterial Blood Potassium (3.4-4.5) mmol/L Arterial Blood Glucose (75-99) mg/dL Crossmatch 07/19/21 07/19/21 07/19/21 Range/Units 15:27 16:02 16:54 WBC (3.8-10.6) k/uL RBC (4.30-5.90) m/uL Hgb (13.0-17.5) gm/dL Hct (39.0-53.0) % Plt Count (150-450) k/uL Neutrophils # (1.3-7.7) k/uL Lymphocytes # (1.0-4.8) k/uL Monocytes # (0-1.0) k/uL PT (9.0-12.0) sec INR (<1.2) APTT (22.0-30.0) sec ABG pH 7.32 L (7.35-7.45) ABG pCO2 49 H (35-45) mmHg ABG pO2 324 H (83-108) mmHg ABG HCO3 (21-25) mmol/L ABG Total CO2 27 H (19-24) mmol/L ABG O2 Saturation 100.0 H (94-97) % ABG Hematocrit (34.0-46.0) % ABG Potassium (3.4-4.5) mmol/L ABG Ionized Calcium (4.5-5.3) mg/dL ABG Glucose (75-99) mg/dL ABG Lactic Acid (0.5-1.6) mmol/L Hemoglobin (13.0-17.5) gm/dL Sodium (137-145) mmol/L Chloride (98-107) mmol/L Creatinine (0.66-1.25) mg/dL Glucose (74-99) mg/dL POC Glucose (mg/dL) 131 H 133 H (75-99) mg/dL Calcium (8.4-10.2) mg/dL AST (17-59) U/L Total Protein (6.3-8.2) g/dL Albumin (3.5-5.0) g/dL Arterial Blood Potassium (3.4-4.5) mmol/L Arterial Blood Glucose (75-99) mg/dL Crossmatch 07/19/21 07/19/21 07/19/21 Range/Units 16:56 18:07 18:57 WBC 17.4 H (3.8-10.6) k/uL RBC 3.80 L (4.30-5.90) m/uL Hgb 11.4 L (13.0-17.5) gm/dL Hct 35.9 L (39.0-53.0) % Plt Count (150-450) k/uL Neutrophils # 15.4 H (1.3-7.7) k/uL Lymphocytes # 0.9 L (1.0-4.8) k/uL Monocytes # (0-1.0) k/uL PT (9.0-12.0) sec INR (<1.2) APTT (22.0-30.0) sec ABG pH (7.35-7.45) ABG pCO2 (35-45) mmHg ABG pO2 (83-108) mmHg ABG HCO3 (21-25) mmol/L ABG Total CO2 (19-24) mmol/L ABG O2 Saturation (94-97) % ABG Hematocrit (34.0-46.0) % ABG Potassium (3.4-4.5) mmol/L ABG Ionized Calcium (4.5-5.3) mg/dL ABG Glucose (75-99) mg/dL ABG Lactic Acid (0.5-1.6) mmol/L Hemoglobin (13.0-17.5) gm/dL Sodium (137-145) mmol/L Chloride (98-107) mmol/L Creatinine (0.66-1.25) mg/dL Glucose (74-99) mg/dL POC Glucose (mg/dL) 141 H 140 H (75-99) mg/dL Calcium (8.4-10.2) mg/dL AST (17-59) U/L Total Protein (6.3-8.2) g/dL Albumin (3.5-5.0) g/dL Arterial Blood Potassium (3.4-4.5) mmol/L Arterial Blood Glucose (75-99) mg/dL Crossmatch 07/19/21 07/19/21 07/19/21 Range/Units 19:35 19:51 19:55 WBC 17.8 H (3.8-10.6) k/uL RBC 3.99 L (4.30-5.90) m/uL Hgb 12.3 L (13.0-17.5) gm/dL Hct 37.9 L (39.0-53.0) % Plt Count (150-450) k/uL Neutrophils # 16.1 H (1.3-7.7) k/uL Lymphocytes # 0.7 L (1.0-4.8) k/uL Monocytes # (0-1.0) k/uL PT (9.0-12.0) sec INR (<1.2) APTT (22.0-30.0) sec ABG pH (7.35-7.45) ABG pCO2 (35-45) mmHg ABG pO2 145 H (83-108) mmHg ABG HCO3 (21-25) mmol/L ABG Total CO2 (19-24) mmol/L ABG O2 Saturation 99.4 H (94-97) % ABG Hematocrit (34.0-46.0) % ABG Potassium (3.4-4.5) mmol/L ABG Ionized Calcium (4.5-5.3) mg/dL ABG Glucose (75-99) mg/dL ABG Lactic Acid (0.5-1.6) mmol/L Hemoglobin (13.0-17.5) gm/dL Sodium (137-145) mmol/L Chloride (98-107) mmol/L Creatinine (0.66-1.25) mg/dL Glucose (74-99) mg/dL POC Glucose (mg/dL) 148 H (75-99) mg/dL Calcium (8.4-10.2) mg/dL AST (17-59) U/L Total Protein (6.3-8.2) g/dL Albumin (3.5-5.0) g/dL Arterial Blood Potassium (3.4-4.5) mmol/L Arterial Blood Glucose (75-99) mg/dL Crossmatch 07/19/21 07/19/21 07/19/21 Range/Units 20:56 21:54 22:57 WBC (3.8-10.6) k/uL RBC (4.30-5.90) m/uL Hgb (13.0-17.5) gm/dL Hct (39.0-53.0) % Plt Count (150-450) k/uL Neutrophils # (1.3-7.7) k/uL Lymphocytes # (1.0-4.8) k/uL Monocytes # (0-1.0) k/uL PT (9.0-12.0) sec INR (<1.2) APTT (22.0-30.0) sec ABG pH (7.35-7.45) ABG pCO2 (35-45) mmHg ABG pO2 (83-108) mmHg ABG HCO3 (21-25) mmol/L ABG Total CO2 (19-24) mmol/L ABG O2 Saturation (94-97) % ABG Hematocrit (34.0-46.0) % ABG Potassium (3.4-4.5) mmol/L ABG Ionized Calcium (4.5-5.3) mg/dL ABG Glucose (75-99) mg/dL ABG Lactic Acid (0.5-1.6) mmol/L Hemoglobin (13.0-17.5) gm/dL Sodium (137-145) mmol/L Chloride (98-107) mmol/L Creatinine (0.66-1.25) mg/dL Glucose (74-99) mg/dL POC Glucose (mg/dL) 154 H 162 H 152 H (75-99) mg/dL Calcium (8.4-10.2) mg/dL AST (17-59) U/L Total Protein (6.3-8.2) g/dL Albumin (3.5-5.0) g/dL Arterial Blood Potassium (3.4-4.5) mmol/L Arterial Blood Glucose (75-99) mg/dL Crossmatch 07/20/21 07/20/21 07/20/21 Range/Units 00:09 01:14 01:59 WBC (3.8-10.6) k/uL RBC (4.30-5.90) m/uL Hgb (13.0-17.5) gm/dL Hct (39.0-53.0) % Plt Count (150-450) k/uL Neutrophils # (1.3-7.7) k/uL Lymphocytes # (1.0-4.8) k/uL Monocytes # (0-1.0) k/uL PT (9.0-12.0) sec INR (<1.2) APTT (22.0-30.0) sec ABG pH (7.35-7.45) ABG pCO2 (35-45) mmHg ABG pO2 (83-108) mmHg ABG HCO3 (21-25) mmol/L ABG Total CO2 (19-24) mmol/L ABG O2 Saturation (94-97) % ABG Hematocrit (34.0-46.0) % ABG Potassium (3.4-4.5) mmol/L ABG Ionized Calcium (4.5-5.3) mg/dL ABG Glucose (75-99) mg/dL ABG Lactic Acid (0.5-1.6) mmol/L Hemoglobin (13.0-17.5) gm/dL Sodium (137-145) mmol/L Chloride (98-107) mmol/L Creatinine (0.66-1.25) mg/dL Glucose (74-99) mg/dL POC Glucose (mg/dL) 152 H 142 H 137 H (75-99) mg/dL Calcium (8.4-10.2) mg/dL AST (17-59) U/L Total Protein (6.3-8.2) g/dL Albumin (3.5-5.0) g/dL Arterial Blood Potassium (3.4-4.5) mmol/L Arterial Blood Glucose (75-99) mg/dL Crossmatch 07/20/21 07/20/21 07/20/21 Range/Units 02:52 03:59 04:52 WBC (3.8-10.6) k/uL RBC (4.30-5.90) m/uL Hgb (13.0-17.5) gm/dL Hct (39.0-53.0) % Plt Count (150-450) k/uL Neutrophils # (1.3-7.7) k/uL Lymphocytes # (1.0-4.8) k/uL Monocytes # (0-1.0) k/uL PT (9.0-12.0) sec INR (<1.2) APTT (22.0-30.0) sec ABG pH (7.35-7.45) ABG pCO2 (35-45) mmHg ABG pO2 (83-108) mmHg ABG HCO3 (21-25) mmol/L ABG Total CO2 (19-24) mmol/L ABG O2 Saturation (94-97) % ABG Hematocrit (34.0-46.0) % ABG Potassium (3.4-4.5) mmol/L ABG Ionized Calcium (4.5-5.3) mg/dL ABG Glucose (75-99) mg/dL ABG Lactic Acid (0.5-1.6) mmol/L Hemoglobin (13.0-17.5) gm/dL Sodium (137-145) mmol/L Chloride (98-107) mmol/L Creatinine (0.66-1.25) mg/dL Glucose (74-99) mg/dL POC Glucose (mg/dL) 129 H 132 H 133 H (75-99) mg/dL Calcium (8.4-10.2) mg/dL AST (17-59) U/L Total Protein (6.3-8.2) g/dL Albumin (3.5-5.0) g/dL Arterial Blood Potassium (3.4-4.5) mmol/L Arterial Blood Glucose (75-99) mg/dL Crossmatch 07/20/21 07/20/21 07/20/21 Range/Units 04:55 04:55 06:04 WBC 19.9 H (3.8-10.6) k/uL RBC 4.01 L (4.30-5.90) m/uL Hgb 12.0 L (13.0-17.5) gm/dL Hct 38.1 L (39.0-53.0) % Plt Count (150-450) k/uL Neutrophils # 17.6 H (1.3-7.7) k/uL Lymphocytes # (1.0-4.8) k/uL Monocytes # 1.1 H (0-1.0) k/uL PT (9.0-12.0) sec INR (<1.2) APTT (22.0-30.0) sec ABG pH (7.35-7.45) ABG pCO2 (35-45) mmHg ABG pO2 (83-108) mmHg ABG HCO3 (21-25) mmol/L ABG Total CO2 (19-24) mmol/L ABG O2 Saturation (94-97) % ABG Hematocrit (34.0-46.0) % ABG Potassium (3.4-4.5) mmol/L ABG Ionized Calcium (4.5-5.3) mg/dL ABG Glucose (75-99) mg/dL ABG Lactic Acid (0.5-1.6) mmol/L Hemoglobin (13.0-17.5) gm/dL Sodium 134 L (137-145) mmol/L Chloride (98-107) mmol/L Creatinine 0.54 L (0.66-1.25) mg/dL Glucose 131 H (74-99) mg/dL POC Glucose (mg/dL) 132 H (75-99) mg/dL Calcium 8.2 L (8.4-10.2) mg/dL AST 68 H (17-59) U/L Total Protein 5.6 L (6.3-8.2) g/dL Albumin (3.5-5.0) g/dL Arterial Blood Potassium (3.4-4.5) mmol/L Arterial Blood Glucose (75-99) mg/dL Crossmatch 07/20/21 07/20/21 Range/Units 06:50 08:10 WBC (3.8-10.6) k/uL RBC (4.30-5.90) m/uL Hgb (13.0-17.5) gm/dL Hct (39.0-53.0) % Plt Count (150-450) k/uL Neutrophils # (1.3-7.7) k/uL Lymphocytes # (1.0-4.8) k/uL Monocytes # (0-1.0) k/uL PT (9.0-12.0) sec INR (<1.2) APTT (22.0-30.0) sec ABG pH (7.35-7.45) ABG pCO2 (35-45) mmHg ABG pO2 (83-108) mmHg ABG HCO3 (21-25) mmol/L ABG Total CO2 (19-24) mmol/L ABG O2 Saturation (94-97) % ABG Hematocrit (34.0-46.0) % ABG Potassium (3.4-4.5) mmol/L ABG Ionized Calcium (4.5-5.3) mg/dL ABG Glucose (75-99) mg/dL ABG Lactic Acid (0.5-1.6) mmol/L Hemoglobin (13.0-17.5) gm/dL Sodium (137-145) mmol/L Chloride (98-107) mmol/L Creatinine (0.66-1.25) mg/dL Glucose (74-99) mg/dL POC Glucose (mg/dL) 123 H 147 H (75-99) mg/dL Calcium (8.4-10.2) mg/dL AST (17-59) U/L Total Protein (6.3-8.2) g/dL Albumin (3.5-5.0) g/dL Arterial Blood Potassium (3.4-4.5) mmol/L Arterial Blood Glucose (75-99) mg/dL Crossmatch
[2021-07-20 11:56] LABS: Glucose,Whole Blood 133 mg/dL (75-99)
[2021-07-20] MEDS: TAMSULOSIN 0.4 MG CAP.ER.24H PO SCH (12:03)
[2021-07-20] MEDS: INSULIN ASPART (NovoLOG) 100 UNIT/ML VIAL SQ SCH ×2 (12:03→18:44)
--- NOTE | 2021-07-20 13:53 | CONS ---
CONSULTATION Stevo Randall is a 71-year-old gentleman with a history of hypertension, hyperlipidemia, CAD and severe aortic stenosis. He sees Dr. Steele from a cardiology standpoint. He underwent elective aortic valve replacement with a tissue valve and a YEE to LAD with an arterial conduit to the obtuse marginal. Extubated within 6 to 8 hours. He is doing very well. He is ambulating without symptoms. Hemodynamically stable. Chest tubes are draining appropriately. He is in sinus rhythm. Vitals are stable. PAST MEDICAL HISTORY: 1. Remarkable for CAD and severe aortic stenosis. 2. Hypertension. 3. Hyperlipidemia. 4. Benign prostatic hypertrophy. PHYSICAL EXAMINATION: On examination, blood pressure is 118/70, pulse rate is about 78. S1-S2 heard normally. Short systolic murmur at the base is audible. Lungs reveal fair air entry bilaterally. Abdomen is soft. Lower extremities reveal diminished pulses. Central nervous system is normal. IMPRESSION: 1. Status post aortic valve replacement with a tissue valve and two-vessel bypass, postoperative day number 1. 2. Hypertension. 3. Hyperlipidemia. RECOMMENDATIONS: Continue current medical regimen, gradually increase activity, incentive spirometry and pulmonary toilet. Thank you very much for the consult. MMODL / IJN: [id number] /
[2021-07-20] MEDS: LACTATED RINGERS 1,000 ML IV SCH (15:56)
[2021-07-20 16:56] LABS: Glucose,Whole Blood 135 mg/dL (75-99)
[2021-07-20] MEDS: SENNOSIDES-DOCUSATE SODIUM 1 EACH TAB PO SCH (20:23)
[2021-07-20 20:33] LABS: Glucose,Whole Blood 134 mg/dL (75-99)
[2021-07-21] MEDS: INSULIN ASPART (NovoLOG) 100 UNIT/ML VIAL SQ SCH ×5 (00:14→21:40)
[2021-07-21] MEDS: HEPARIN SODIUM,PORCINE/PF 5,000 UNIT/0.5 ML SYRINGE SQ SCH ×2 (00:33→08:33)
[2021-07-21] MEDS: HYDROcodone/APAP 5-325MG 1 EACH TAB PO PRN ×5 (00:33→23:44)
[2021-07-21 05:12] LABS: Basophils # (A) 0.1 k/uL (0-0.2); Basophils % (A) 0 %; Eosinophils # (A) 0.2 k/uL (0-0.7); Eosinophils % (A) 2 %; HCT 30.9 % (39.0-53.0); Lymphocytes # (A) 1.7 k/uL (1.0-4.8); Lymphocytes % (A) 10 %; MCH 30.1 pg (25.0-35.0); MCHC 31.7 g/dL (31.0-37.0); MCV 94.9 fL (80.0-100.0); Mean Platelet Volume 7.7; Monocytes % (A) 6 %; Neutrophils # (A) 13.5 k/uL (1.3-7.7); Neutrophils % (A) 81 %; Platelet Count 120 k/uL (150-450); RBC 3.25 m/uL (4.30-5.90); RDW 12.6 % (11.5-15.5); WBC 16.6 k/uL (3.8-10.6)
[2021-07-21 05:28] LABS: HGB 9.8 gm/dL (13.0-17.5)
[2021-07-21 05:39] LABS: ALT 18 U/L (4-49); AST 41 U/L (17-59); African American GFR (CKD) >90 (>60 ml/min/1.73 sqM); Albumin 3.1 g/dL (3.5-5.0); Alkaline Phosphatase 50 U/L (38-126); Anion Gap 4 mmol/L; Blood Urea Nitrogen 13 mg/dL (9-20); Calcium 8.3 mg/dL (8.4-10.2); Carbon Dioxide 28 mmol/L (22-30); Chloride 102 mmol/L (98-107); Glucose 120 mg/dL (74-99); Non-African American GFR(CKD) >90 (>60 ml/min/1.73 sqM); Potassium 4.2 mmol/L (3.5-5.1); Sodium 134 mmol/L (137-145); Total Bilirubin 0.7 mg/dL (0.2-1.3); Total Protein 5.1 g/dL (6.3-8.2)
--- NOTE | 2021-07-21 06:11 | XR ---
EXAMINATION TYPE: XR chest 1V portable DATE OF EXAM: 07/21/2021 CLINICAL HISTORY: Difficulty breathing progress study. Postoperative cardiac surgery. TECHNIQUE: Single AP portable upright view of the chest is obtained. COMPARISON: Chest x-ray from one day earlier and older studies. FINDINGS: Overlying sternal wires with mediastinal clips and mediastinal drainage catheter are all redemonstrat ed. Left atrial appendage clip redemonstrated. Persistent left-sided chest tube. Interval removal of right internal jugular [place] catheter. Cordis sheath remains present. Chronic parenchymal changes bilaterally with patchy left lung opacities. Right lung remains clear. St able mild cardiomegaly. Osseous structures are intact. IMPRESSION: Mild cardiomegaly and chronic changes with patchy left lung edema and/or infiltrates rede monstrated. No significant change from one day earlier.
[2021-07-21 07:19] LABS: Glucose,Whole Blood 118 mg/dL (75-99)
[2021-07-21] MEDS: PANTOPRAZOLE 40 MG TABLET PO SCH (08:03)
[2021-07-21] MEDS: INSULIN DETEMIR (LEVEMIR) 100 UNIT/ML SYR SQ SCH (08:03)
[2021-07-21] MEDS: ASPIRIN 325 MG TAB PO SCH (08:33)
[2021-07-21] MEDS: IPRATROPIUM-ALBUTEROL 3 ML NEB INHALATION SCH ×4 (08:33→20:41)
[2021-07-21] MEDS: METOPROLOL TARTRATE 25 MG TAB PO SCH ×2 (08:33→21:29)
[2021-07-21] MEDS: ATORVASTATIN 80 MG TAB PO SCH (08:33)
[2021-07-21] MEDS: CLOPIDOGREL 75 MG TAB PO SCH (08:33)
[2021-07-21] MEDS ORDERED: AMIODARONE IN DEXTROSE,ISO-OSM 360 MG/200 ML PLAST..BAG IV ONE (10:31)
[2021-07-21] MEDS ORDERED: AMIODARONE IN DEXTROSE,ISO-OSM 150 MG/100 ML PLAST..BAG IV ONE (10:31)
[2021-07-21] MEDS: DEXTROSE 5% IN WATER 100 ML with AMIODARONE 150 MG IV PRN ×3 (10:31→13:05)
[2021-07-21] MEDS ORDERED: ALBUMIN HUMAN 25% 50 ML in EMPTY BAG 1 BAG IVPB ONE (11:00)
--- NOTE | 2021-07-21 11:29 | P.PN ---
Subjective Progress Note Date: 07/21/21 This is a 71-year-old male, who was seen in consultation, room 267. The patient is postop day #1, status post aortic valve replacement surgery for severe aortic stenosis, two-vessel bypass grafting, including YEE to LAD, and radial artery to obtuse marginal artery, clipping of a left atrial appendage, and intraoperative transesophageal echocardiogram. The patient was extubated about 5 hours and 15 minutes after leaving the operating room. Currently he is resting comfortably. He's on 3 L nasal cannula, Lactated Ringer's at 50 mL an hour, Cardizem 5 mg an hour, and insulin drip at 1.5 units an hour. He has no complaints. White count of 19.9, hemoglobin 12, hematocrit 38.1, and platelet count 168,000. Sodium 134, potassium 4, chlorides 106, CO2 24, BUN 14, and creatinine 0.54. Chest x-ray shows some patchy bibasilar infiltrates or atelectasis. The patient is seen today 07/21/2021 in follow-up in the intensive care unit. Postoperative day #2, status post aortic valve replacement for severe stenosis and coronary artery disease with two-vessel bypass grafting including a YEE to LAD and radial artery to the obtuse marginal branch. He is currently sitting up in a chair at bedside. Awake and alert in no acute distress. Doing quite well. Maintaining O2 saturations in the 90s on room air. Pulling greater than 1000 on the incentive spirometer. His lactated Ringer's at 30 MLS per hour. His chest x-ray revealing mild cardiomegaly and chronic changes of patchy left lung edema/infiltrates redemonstrated. No significant change. White count 16.6. Hemoglobin 9.8. Platelet count 120,000. Sodium 134. Potassium 4.2. BUN 13. Creatinine 0.61. Glucose 120. He did receive additional albumin this morning. He remains on bronchodilators. He did develop atrial fibrillation x-ray 10:30 this morning is now on amiodarone drip at 1 mg/m. Objective - Vital Signs Vital signs: Vital Signs Temp 98.5 F 07/21/21 09:00 Pulse 107 H 07/21/21 09:00 Resp 19 07/21/21 09:00 BP 108/76 07/20/21 18:00 Pulse Ox 95 07/21/21 09:00 FiO2 50 07/19/21 20:00 Intake & Output 07/20/21 07/21/21 07/21/21 18:59 06:59 18:59 Intake Total 1271 432 222 Output Total 1170 1663 360 Balance 101 -1231 -138 Weight 100.6 kg 103.3 kg Intake: IV 501 432 72 Lactated Ringers 1,000 ml 420 360 60 @ 20 mls/hr IV .Q24H [facility] Rx#:[id number] pressure bags 81 72 12 Intake, IV Titration 50 Amount ceFAZolin 2 gm In Sodium 50 Chloride 0.9% 50 ml @ 100 mls/hr IVPB Q8H [facility] Rx#: [id number] Oral 720 150 Output: Chest Tube Drainage 260 288 50 Mediastinal and left 260 288 50 pleural Urine 910 1375 310 Other: Voiding Method Indwelling Catheter Indwelling Catheter Indwelling Catheter ABP, PAP, CO, CI - Last Documented Arterial Blood Pressure 113/50 Pulmonary Artery Pressure 16/9 Cardiac Output 4.2 Cardiac Index 1.9 - Exam GENERAL EXAM: Alert, very pleasant 71-year-old gentleman sitting up in a chair at the bedside. On room air. Currently comfortable in no apparent distress. HEAD: Normocephalic. EYES: Normal reaction of pupils, equal size. NOSE: Clear with pink turbinates. THROAT: No erythema or exudates. NECK: No masses, no JVD. CHEST: Hard collar in place. Sternal incision clean dry and well approximated. Mediastinal and left chest tube in place. Connected to wall suction. No air leaks noted. LUNGS: Equal air entry with no crackles, wheeze, rhonchi or dullness. CVS: S1 and S2 normal with no audible murmur, irregular rhythm. ABDOMEN: No hepatosplenomegaly, normal bowel sounds, no guarding or rigidity. SPINE: No scoliosis or deformity SKIN: No rashes CENTRAL NERVOUS SYSTEM: No focal deficits, tone is normal in all 4 extremities. EXTREMITIES: There is no peripheral edema. No clubbing, no cyanosis. Periphe ral pulses are intact. - Labs CBC & Chem 7: 07/21/21 04:15 07/21/21 04:15 Labs: Abnormal Lab Results - Last 24 Hours (Table) 07/20/21 07/20/21 07/20/21 Range/Units 11:55 16:49 20:31 WBC (3.8-10.6) k/uL RBC (4.30-5.90) m/uL Hgb (13.0-17.5) gm/dL Hct (39.0-53.0) % Plt Count (150-450) k/uL Neutrophils # (1.3-7.7) k/uL Sodium (137-145) mmol/L Creatinine (0.66-1.25) mg/dL Glucose (74-99) mg/dL POC Glucose (mg/dL) 133 H 135 H 134 H (75-99) mg/dL Calcium (8.4-10.2) mg/dL Total Protein (6.3-8.2) g/dL Albumin (3.5-5.0) g/dL 07/21/07/21/21 07/21/21 Range/Units 04:15 04:15 07:13 WBC 16.6 H (3.8-10.6) k/uL RBC 3.25 L (4.30-5.90) m/uL Hgb 9.8 L D (13.0-17.5) gm/dL Hct 30.9 L (39.0-53.0) % Plt Count 120 L (150-450) k/uL Neutrophils # 13.5 H (1.3-7.7) k/uL Sodium 134 L (137-145) mmol/L Creatinine 0.61 L (0.66-1.25) mg/dL Glucose 120 H (74-99) mg/dL POC Glucose (mg/dL) 118 H (75-99) mg/dL Calcium 8.3 L (8.4-10.2) mg/dL Total Protein 5.1 L (6.3-8.2) g/dL Albumin 3.1 L (3.5-5.0) g/dL Assessment and Plan Assessment: Postop day #2, status post aortic valve replacement for severe aortic stenosis, and two-vessel bypass grafting, including YEE to LAD, and radial artery to OM, secondary to CAD, left atrial appendage ligation, and intraoperative transesophageal echocardiogram Routine postoperative ventilator management, extubated and currently on room air Atrial fibrillation with rapid ventricular response, expected outcome of surgery History of CAD History of hypertension History of severe aortic stenosis History of hyperlipidemia History of kidney stones History of BPH Plan: The patient was seen and evaluated Chest x-ray and labs reviewed Currently stable and on room air Received albumin this morning Initiated on amiodarone drip Increase activity as tolerated We will continue to follow and make further recommendations based on his clinical status I have personally seen and examined the patient, performed the documentation and the assessment and plan as written. Number of minutes spent on the visit: 10.
--- NOTE | 2021-07-21 11:48 | P.PN ---
Subjective Progress Note Date: 07/21/21 Principal diagnosis: Severe aortic valve stenosis, two-vessel coronary artery disease. Past medical history significant for questionable presyncopal event versus TIA recently, pre vious tobacco dependence, osteoarthritis, enlarged prostate. Remains unvaccinated against Covid-19. POD #2 aortic valve replacement with a #25 mm Urias Inspiris bioprosthetic aortic valve, coronary artery bypass grafting 2 with the left internal mammary artery to the left anterior descending coronary artery, left radial artery off the aorta to the first obtuse marginal coronary artery, endoscopic left radial artery harvest, clip ligation of the left atrial appendage with a 35 mm AtriClip, intraoperative transesophageal echocardiogram. Paroxysmal atrial fibrillation, a known common occurrence after cardiac surgery. The patient was seen and examined and follow-up this morning 07/21/2021 at his bedside in the intensive care unit. Currently he is sitting up to the bedside chair, is awake, alert, oriented 3 and is in no acute distress. He remains hemodynamically stable and is currently on no inotropic pressor support. Oxygen saturations are 95% on room air and he is achieving 2000 mL on his incentive spirometry. Bedside telemetry showing sinus tachycardia heart rate 104 BPM. Mediastinal and left pleural chest tubes remain in place to low continuous wall suction -20 cm H2O. No air leak is present. Draining thin serosanguineous drainage with 50 mL output in the last 8 hours and 550 mL output in the last 24 hours. Atrial and ventricular epicardial pacemaker wires remain in place and connected to bet Bedside pacemaker generator on a VVI 50. Right IJ cordis remains in place with current CVP showing 14 mmHg. Chest x-ray and laboratory results reviewed. He has been afebrile last 24 hours. Objective - Vital Signs Vital signs: Vital Signs Temp 98.5 F 07/21/21 09:00 Pulse 107 H 07/21/21 09:00 Resp 19 07/21/21 09:00 BP 108/76 07/20/21 18:00 Pulse Ox 95 07/21/21 09:00 FiO2 50 07/19/21 20:00 Intake & Output 07/20/21 07/21/21 07/21/21 18:59 06:59 18:59 Intake Total 1271 432 222 Output Total 1170 1663 360 Balance 101 -1231 -138 Weight 100.6 kg 103.3 kg Intake: IV 501 432 72 Lactated Ringers 1,000 ml 420 360 60 @ 20 mls/hr IV .Q24H [facility] Rx#:[id number] pressure bags 81 72 12 Intake, IV Titration 50 Amount ceFAZolin 2 gm In Sodium 50 Chloride 0.9% 50 ml @ 100 mls/hr IVPB Q8H [facility] Rx#: [id number] Oral 720 150 Output: Chest Tube Drainage 260 288 50 Mediastinal and left 260 288 50 pleural Urine 910 1375 310 Other: Voiding Method Indwelling Catheter Indwelling Catheter Indwelling Catheter ABP, PAP, CO, CI - Last Documented Arterial Blood Pressure 113/50 Pulmonary Artery Pressure 16/9 Cardiac Output 4.2 Cardiac Index 1.9 - Exam CONSTITUTIONAL: Sitting up to the bedside chair in the intensive care unit, appears comfortable, cooperative, no apparent acute distress. HEENT: Neck is supple, no JVD, no lymphadenopathy. Right IJ Cordis in place and functioning. RESPIRATORY: Lungs sounds essentially clear throughout, diminished to his bilateral bases. Respirations are symmetrical and nonlabored. Currently on room air with oxygen saturations 95%. Able to achieve 2000 mL on his incentive spirometry. Strong cough. CARDIOVASCULAR: Regular rhythm and tachycardic rate. S1 and S2 present, negative for S3, gallop or murmur. Sternum is stable. Palpable peripheral pulses bilaterally, no edema to his bilateral lower extremities. No calf pain or tenderness noted. Heart hugger in place with patient demonstrating appropriate use. Knee-high MARK hose and sequential compression devices in place to his bilateral lower extremities. GASTROINTESTINAL: Abdomen soft, nontender, nondistended. Hypoactive bowel sounds present 4 quadrants. Tolerating diet. Passing flatus. No guarding or rigidity. GENITOURINARY: Duarte present draining clear, yellow urine. Output 550 mL in the last 8 hours. INTEGUMENTARY: Skin is warm and dry with no evidence of clubbing or cyanosis. Midline sternal incision clean dry and well approximated, covered with dry intact dressing. Left arm radial artery harvest sites well approximated without redness or drainage. NEUROLOGIC: Cranial nerves II through XII intact. No focal deficits. MUSKULOSKELETAL: Able to move all extremities, strength equal bilaterally, generalized weakness. PSYCHIATRIC: Alert and oriented to person place and time, appropriate affect, intact judgment and insight. INVASIVE LINES AND TUBES: Mediastinal/left pleural chest tubes present and connected to low continuous wall suction, no air leaks present. Mediastinal/left pleural tubes with 50 mL of thin serosanguineous drainage overnight, 250 mL output in the last 24 hours. Atrial and ventricular epicardial pacemaker wires present, connected to generator, VVI backup rate 50 bpm. Right internal jugular [place]/Cordis, right radial arterial line present. CVP 14 mmHg. - Allied health notes Allied health notes reviewed: nursing - Labs CBC & Chem 7: 07/21/21 04:15 07/21/21 04:15 Labs: Abnormal Lab Results - Last 24 Hours (Table) 07/20/21 07/20/21 07/20/21 Range/Units 11:55 16:49 20:31 WBC (3.8-10.6) k/uL RBC (4.30-5.90) m/uL Hgb (13.0-17.5) gm/dL Hct (39.0-53.0) % Plt Count (150-450) k/uL Neutrophils # (1.3-7.7) k/uL Sodium (137-145) mmol/L Creatinine (0.66-1.25) mg/dL Glucose (74-99) mg/dL POC Glucose (mg/dL) 133 H 135 H 134 H (75-99) mg/dL Calcium (8.4-10.2) mg/dL Total Protein (6.3-8.2) g/dL Albumin (3.5-5.0) g/dL 07/21/21 07/21/21 07/21/21 Range/Units 04:15 04:15 07:13 WBC 16.6 H (3.8-10.6) k/uL RBC 3.25 L (4.30-5.90) m/uL Hgb 9.8 L D (13.0-17.5) gm/dL Hct 30.9 L (39.0-53.0) % Plt Count 120 L (150-450) k/uL Neutrophils # 13.5 H (1.3-7.7) k/uL Sodium 134 L (137-145) mmol/L Creatinine 0.61 L (0.66-1.25) mg/dL Glucose 120 H (74-99) mg/dL POC Glucose (mg/dL) 118 H (75-99) mg/dL Calcium 8.3 L (8.4-10.2) mg/dL Total Protein 5.1 L (6.3-8.2) g/dL Albumin 3.1 L (3.5-5.0) g/dL - Imaging and Cardiology Chest x-ray: report reviewed, image reviewed Assessment and Plan Assessment: 1. Severe aortic valve stenosis, status post aortic valve replacement 2. Two-vessel coronary artery disease, status post 2 vessel CABG 3. History of questionable presyncopal event versus TIA recently 4. Previous tobacco dependence, preoperative FEV1 96% of predicted 5. Osteoarthritis 6. Enlarged prostate 7. Remains unvaccinated against Covid 8. Paroxysmal atrial fibrillation a known common occurrence after cardiac surgery Plan: 1. Continue aspirin, statin, Plavix, beta jalen. Will increase beta jalen therapy as tolerated. 2. Continue Norvasc 2.5 mg by mouth daily for radial artery spasm prophylaxis. 3. Encourage incentive spirometry use 10 times every hour while awake. Bronchodilators per pulmonology. 4. Increase activity as tolerated, PT/OT/cardiac rehab following. 5. Will monitor daily labs and chest x-rays. Electrolyte replacement per protocol. 6. GI/DVT prophylaxis. 7. Pain control per current medication regimen. 8. Insulin management per primary care. Patient is not diabetic, preoperative hemoglobin A1c 5.3%. 9. Remove Duarte catheter, continue strict and accurate intake and output. Continue Flomax. May bladder scan every 6 hours and when necessary postvoid re sidual. If greater than 300 mL of urine on bladder scan may straight cath. 10. Daily weights. 11. Continue Cordis to continuous CVP monitoring 12. We will remove his mediastinal/left pleural chest tubes. 13. Continue his atrial and ventricular epicardial pacemaker wires connected to backup bedside pacemaker generator on a VVI 50 BPM. 14. Initiate amiodarone drip per protocol for atrial fibrillation prophylaxis. 15. More recommendations to follow based on patient's clinical course.
[2021-07-21 12:00] LABS: Glucose,Whole Blood 132 mg/dL (75-99)
--- NOTE | 2021-07-21 12:45 | P.PN ---
Subjective Progress Note Date: 07/21/21 HISTORY OF PRESENT ILLNESS This is a 71-year-old male will be newly established with Dr. Reeves with past medical history of kidney stones, benign prostatic hypertrophy, gastroesophageal reflux disease, hypothyroidism. Patient gives history that he has always been very active has been living in [place] and recently moved back to [place]. 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 He has noticed recently that he has had more fatigue with both of these activities and also experiencing some dyspnea with exertion. Patient gives history that he was sitting at a table ac ross from his and developed TIA like symptoms but did not seek treatment at that time. He talked to his neighbor and neighbor recommended that he see Dr. Steele. Patient has been established with Dr. Steele and underwent CORTEZ which revealed normal systolic function, trileaflet aortic valve with severe aortic stenosis, [id number] mitral regurgitation, [id number] tricuspid regurgitation. Cardiac catheterization revealed severe two-vessel coronary artery disease involving the left circumflex and LAD with recommendations for coronary artery bypass grafting to the LAD and OM and aortic valve replacement. Patient has been brought into the hospital by Dr. Dudley and is status post ao rtic valve replacement with bioprosthetic aortic valve and coronary artery bypass grafting 2 with left internal mammary artery, left anterior descending artery, radial artery of the aorta to the left obtuse marginal artery, clip ligation of the left atrial appendage. Patient is postop day #1. He has been successfully extubated and remains in the intensive care unit.. Repeat chest x- ray reveals WBC 19.9, hemoglobin 12, platelet count 168. Sodium 134, potassium 4.0, chloride 106, CO2 24, BUN 14, creatinine 0.54. Blood sugar 131. 6/3: Patient remains in the intensive care unit, sitting in a recliner at the bedside. He has been afebrile, heart rate running between 90-133 this morning. Blood pressure 101/40, pulse ox 92% on room air. WBC 16.6, hemoglobin 9.8, platelet count 120. Sodium 134, potassium 4.2, chloride 102, CO2 28, BUN 13 and creatinine 0.61. Capillary blood glucose run [place] between 118 and 135. Patient is reaching 2000 mL on incentive spirometry. Duarte catheter was just removed and patient has not voided as of yet. Patient developed atrial fibrillation started on amiodarone drip. Repeat chest x-ray reveals mild cardiomegaly and chronic changes with patchy left lung edema and/or infiltrates. No significant change. REVIEW OF SYSTEMS Constitutional: No fever, no chills, no night sweats. No weight change. No weakness, reports fatigue no lethargy. No daytime sleepiness. EENT: No headache. No blurred vision or double vision, no loss of vision. No loss of Hearing, no ringing in the ears, no dizziness. No nasal drainage or congestion. No epistaxis. No sore throat. Lungs: No shortness of breath, cough, no sputum production. No wheezing. Cardiovascular: Generalized chest discomfort, no lower extremity edema. No palpitations. No paroxysmal nocturnal dyspnea. No orthopnea. No lightheadedness or dizziness. No syncopal episodes. Abdominal: No abdominal pain. No nausea, vomiting. No diarrhea. No c onstipation. No bloody or tarry stools. No loss of appetite. Genitourinary: No dysuria, increased frequency, urgency. No urinary retention. Musculoskeletal: No myalgias. No muscle weakness, no gait dysfunction, no frequent falls. No back pain. No neck pain. Integumentary: No wounds, no lesions. No rash or pruritus. No unusual bruising. No change in hair or nails. Neurologic: No aphasia. No facial droop. No change in mentation. No head injury. No headache. No paralysis. No paresthesia. Psychiatric: No depression. No anxiety. No mood swings. Endocrine: No abnormal blood sugars. No weight change. No excessive sweating or thirst. PHYSICAL EXAMINATION Gen: This is a 71-year-old male. He is resting on recliner in the intensive care unit and appears to be comfortable at rest HEENT: Head is atraumatic, normocephalic. Pupils equal, round. Sclerae is anicteric. NECK: Supple. No JVD. No lymphadenopathy. No thyromegaly. Right IJ [place]/Cordis. LUNGS: Clear to auscultation. No wheezes or rhonchi. No intercostal retractions. Mediastinal chest tube HEART: Irregular rate and rhythm. No murmur. nurse monitoring atrial fibrillation. ABDOMEN: Soft. Bowel sounds are present. No masses. No tenderness. EXTREMITIES: No pedal edema. No calf tenderness. NEUROLOGICAL: Patient is awake, alert and oriented x3. Cranial nerves 2 through 12 are grossly intact. ASSESSMENT AND PLAN 1. Coronary artery disease status post coronary artery bypass grafting 2 with left internal mammary artery, left anterior descending artery, radial artery of the aorta to the left obtuse marginal artery, clip ligation of the left atrial appendage, 07/19. Continue current management per cardiothoracic team, anthropology lecturer. Patient is currently on Cardizem drip. Continue patient on Levemir 10 units daily and NovoLog scale. 2. Severe aortic stenosis status post aortic valve replacement with bioprosthetic aortic valve. Patient is postop day #1. Continue current management per cardiothoracic team, anthropology lecturer. 3. Benign prostatic hypertrophy. Monitor for urinary retention. Patient started on Flomax 0.4 mg daily. Duarte catheter removed 07/21. 4. History of kidney stones, stable. No complaints. 5. Remote history of tobacco use. 6. Generalized osteoarthritis. 7. GI prophylaxis. Protonix. 8. DVT prophylaxis. Heparin subcu. 9. Possible history of TIA symptoms. Patient did not seek treatment at the time. 10. History of hypothyroidism, gastroesophageal reflux disease resolved with weight loss. 11. Paroxysmal atrial fibrillation, not unexpected following surgery. Patient is on amiodarone drip. DISCHARGE PLAN Home with [facility]. Impression and plan of care have been directed as dictated by the signing physician. Steph Santiago nurse practitioner acting as scribe for signing physician. Objective - Vital Signs Vital signs: Vital Signs Temp 98.5 F 07/21/21 09:00 Pulse 107 H 07/21/21 09:00 Resp 19 07/21/21 09:00 BP 108/76 07/20/21 18:00 Pulse Ox 95 07/21/21 09:00 FiO2 50 07/19/21 20:00 Intake & Output 07/20/21 07/21/21 07/21/21 18:59 06:59 18:59 Intake Total 1271 432 222 Output Total 1170 1663 360 Balance 101 -1231 -138 Weight 100.6 kg 103.3 kg Intake: IV 501 432 72 Lactated Ringers 1,000 ml 420 360 60 @ 20 mls/hr IV .Q24H [facility] Rx#:[id number] pressure bags 81 72 12 Intake, IV Titration 50 Amount ceFAZolin 2 gm In Sodium 50 Chloride 0.9% 50 ml @ 100 mls/hr IVPB Q8H [facility] Rx#: [id number] Oral 720 150 Output: Chest Tube Drainage 260 288 50 Mediastinal and left 260 288 50 pleural Urine 910 1375 310 Other: Voiding Method Indwelling Catheter Indwelling Catheter Indwelling Catheter ABP, PAP, CO, CI - Last Documented Arterial Blood Pressure 113/50 Pulmonary Artery Pressure 16/9 Cardiac Output 4.2 Cardiac Index 1.9 - Labs CBC & Chem 7: 07/21/21 04:15 07/21/21 04:15 Labs: Abnormal Lab Results - Last 24 Hours (Table) 07/20/21 07/20/21 07/20/21 Range/Units 11:55 16:49 20:31 WBC (3.8-10.6) k/uL RBC (4.30-5.90) m/uL Hgb (13.0-17.5) gm/dL Hct (39.0-53.0) % Plt Count (150-450) k/uL Neutrophils # (1.3-7.7) k/uL Sodium (137-145) mmol/L Creatinine (0.66-1.25) mg/dL Glucose (74-99) mg/dL POC Glucose (mg/dL) 133 H 135 H 134 H (75-99) mg/dL Calcium (8.4-10.2) mg/dL Total Protein (6.3-8.2) g/dL Albumin (3.5-5.0) g/dL 07/21/21 07/21/21 07/21/21 Range/Units 04:15 04:15 07:13 WBC 16.6 H (3.8-10.6) k/uL RBC 3.25 L (4.30-5.90) m/uL Hgb 9.8 L D (13.0-17.5) gm/dL Hct 30.9 L (39.0-53.0) % Plt Count 120 L (150-450) k/uL Neutrophils # 13.5 H (1.3-7.7) k/uL Sodium 134 L (137-145) mmol/L Creatinine 0.61 L (0.66-1.25) mg/dL Glucose 120 H (74-99) mg/dL POC Glucose (mg/dL) 118 H (75-99) mg/dL Calcium 8.3 L (8.4-10.2) mg/dL Total Protein 5.1 L (6.3-8.2) g/dL Albumin 3.1 L (3.5-5.0) g/dL
[2021-07-21] MEDS: TAMSULOSIN 0.4 MG CAP.ER.24H PO SCH (13:06)
[2021-07-21] MEDS: amLODIPine 2.5 MG TAB PO SCH (13:14)
[2021-07-21] MEDS: ALBUMIN HUMAN 5% 250 ML in EMPTY BAG 1 BAG IVPB PRN (13:20)
[2021-07-21 16:21] LABS: Glucose,Whole Blood 119 mg/dL (75-99)
--- NOTE | 2021-07-21 17:08 | PN ---
PROGRESS NOTE Mr. Randall is a 71-year-old gentleman, status post aortic valve replacement and bypass surgery. He is doing well, maintaining sinus rhythm, doing well on incentive spirometry. Vitals are stable. No JVD. S1-S2 heard normally. Short systolic murmur noted. Lungs reveal improved air entry. Abdomen and lower extremity exam unchanged. Plan is to continue current medical regimen, increase activity, and see how he does. MMODL / IJN: [id number] /
[2021-07-21] MEDS: AMIODARONE 450 MG in DEXTROSE 5% IN WATER 250 ML IV SCH ×2 (18:42)
[2021-07-21] MEDS: SENNOSIDES-DOCUSATE SODIUM 1 EACH TAB PO SCH (21:29)
[2021-07-21] MEDS: KETOROLAC 15 MG/ML 1 ML VIAL IVP PRN (21:30)
[2021-07-21 21:40] LABS: Glucose,Whole Blood 124 mg/dL (75-99)
[2021-07-22] MEDS: HYDROcodone/APAP 5-325MG 1 EACH TAB PO PRN ×2 (04:36→16:07)
[2021-07-22 06:17] LABS: Basophils # (A) 0.1 k/uL (0-0.2); Basophils % (A) 0 %; Eosinophils # (A) 0.4 k/uL (0-0.7); Eosinophils % (A) 3 %; HCT 27.7 % (39.0-53.0); HGB 8.8 gm/dL (13.0-17.5); Lymphocytes # (A) 1.6 k/uL (1.0-4.8); Lymphocytes % (A) 10 %; MCH 30.2 pg (25.0-35.0); MCHC 31.9 g/dL (31.0-37.0); MCV 94.8 fL (80.0-100.0); Mean Platelet Volume 8.7; Monocytes # (A) 0.9 k/uL (0-1.0); Monocytes % (A) 6 %; Neutrophils # (A) 12.3 k/uL (1.3-7.7); Neutrophils % (A) 80 %; Platelet Count 121 k/uL (150-450); RBC 2.92 m/uL (4.30-5.90); RDW 12.6 % (11.5-15.5); WBC 15.4 k/uL (3.8-10.6)
[2021-07-22 06:28] LABS: ALT 16 U/L (4-49); AST 30 U/L (17-59); African American GFR (CKD) >90 (>60 ml/min/1.73 sqM); Albumin 2.9 g/dL (3.5-5.0); Alkaline Phosphatase 52 U/L (38-126); Anion Gap 3 mmol/L; Blood Urea Nitrogen 11 mg/dL (9-20); Calcium 8.4 mg/dL (8.4-10.2); Carbon Dioxide 27 mmol/L (22-30); Chloride 104 mmol/L (98-107); Glucose 112 mg/dL (74-99); Non-African American GFR(CKD) >90 (>60 ml/min/1.73 sqM); Sodium 134 mmol/L (137-145); Total Bilirubin 0.7 mg/dL (0.2-1.3)
[2021-07-22 06:58] LABS: Glucose,Whole Blood 124 mg/dL (75-99)
--- NOTE | 2021-07-22 07:07 | XR ---
EXAMINATION TYPE: XR chest 1V portable DATE OF EXAM: 07/22/2021 5:07 AM COMPARISON: Chest radiograph from one day prior. TECHNIQUE: XR chest 1V portable Portable AP radiograph of the chest.. CLINICAL INDICATION:Male, 71 years old with history of Postoperative cardiac surgery; FINDINGS: Lungs/Pleura: Low lung volumes with persistent left-sided airspace opacities. There is no evidence of pleural effusion or pneumothorax. Pulmonary vascularity: Unremarkable. Heart/mediastinum: Cardiomediastinal silhouette is unremarkable. Left atrial occlusion devices presen t. Musculoskeletal: No acute osseous pathology. Midline sternotomy wires and surgical clips project over the mediastinum. Other findings: None Lines/Tubes:Left thoracotomy tube is present without evidence of pneumothorax. IMPRESSION: 1. Similar multifocal airspace opacities most pronounced on the left. 2. Left thoracotomy tube without evidence of pneumothorax. 3. Similar cardiomegaly.
[2021-07-22] MEDS: INSULIN ASPART (NovoLOG) 100 UNIT/ML VIAL SQ SCH ×4 (07:10→20:51)
[2021-07-22] MEDS: PANTOPRAZOLE 40 MG TABLET PO SCH (07:45)
[2021-07-22] MEDS: INSULIN DETEMIR (LEVEMIR) 100 UNIT/ML SYR SQ SCH (07:45)
[2021-07-22] MEDS: IPRATROPIUM-ALBUTEROL 3 ML NEB INHALATION SCH ×4 (07:57→23:18)
[2021-07-22] MEDS: AMIODARONE 200 MG TAB PO SCH ×2 (09:02→20:56)
[2021-07-22] MEDS: ATORVASTATIN 80 MG TAB PO SCH (09:02)
[2021-07-22] MEDS: ASPIRIN 325 MG TAB PO SCH (09:03)
[2021-07-22] MEDS: METOPROLOL TARTRATE 25 MG TAB PO SCH ×3 (09:03→20:56)
[2021-07-22] MEDS: FONDAPARINUX 2.5 MG/0.5 ML SYRINGE SQ SCH (09:03)
[2021-07-22] MEDS: CLOPIDOGREL 75 MG TAB PO SCH (09:03)
--- NOTE | 2021-07-22 09:30 | P.PN ---
Subjective Progress Note Date: 07/22/21 Principal diagnosis: Severe aortic valve stenosis, two-vessel coronary artery disease. Past medical history significant for questionable presyncopal event versus TIA recently, pre vious tobacco dependence, osteoarthritis, enlarged prostate. Remains unvaccinated against Covid-19. POD #3 aortic valve replacement with a #25 mm Urias Inspiris bioprosthetic aortic valve, coronary artery bypass grafting 2 with the left internal mammary artery to the left anterior descending coronary artery, left radial artery off the aorta to the first obtuse marginal coronary artery, endoscopic left radial artery harvest, clip ligation of the left atrial appendage with a 35 mm AtriClip, intraoperative transesophageal echocardiogram. Paroxysmal atrial fibrillation, a known common occurrence after cardiac surgery. The patient was seen and examined and follow-up this morning 07/22/2021 at his bedside in the intensive care unit. Currently he is sitting up to the bedside chair, is awake, alert, oriented 3 and is in no acute distress. He denies any complaints of pain or shortness of breath at this time. He does report that he has had some shortness of breath with activity although once he takes a break his shortness of breath is relieved. He remains hemodynamically stable and is currently on no inotropic pressor support. Bedside telemetry is showing normal sinus rhythm with first-degree heart block heart rate 96 BPM. The patient did have some paroxysmal atrial fibrillation yesterday and was started on amiodarone drip. Amiodarone drip is currently infusing at 0.5 mg/m per protocol. Oxygen saturation are 96% on room air. He is achieving 7103-4608 mL on his incentive spirometry of encouragement. Left pleural chest tube remains in place to low continuous wall suction -20 cm H2O. No air leak is present. Draining thin serosanguineous drainage with 90 mL output in the last 8 hours and 100 mL output in the last 24 hours. He has been afebrile the last 24 hours. Objective - Vital Signs Vital signs: Vital Signs Temp 98.4 F 07/21/21 16:00 Pulse 98 07/22/21 07:00 Resp 15 07/22/21 07:00 BP 99/56 07/22/21 02:00 Pulse Ox 94 L 07/22/21 07:00 FiO2 50 07/19/21 20:00 Intake & Output 07/21/21 07/22/21 07/22/21 18:59 06:59 18:59 Intake Total 1326 982 249.338 Output Total 1460 1050 15 Balance -134 -68 234.338 Weight 104.5 kg Intake: IV 326 432 36 Lactated Ringers 1,000 ml 260 360 30 @ 20 mls/hr IV .Q24H [facility] Rx#:[id number] pressure bags 66 72 6 Intake, IV Titration 300 213.338 Amount Amiodarone 450 mg In 213.338 Dextrose 5% in Water 250 ml @ 0.5 MG/MIN 16.667 mls/hr IV .Q15H [facility] Rx#: [id number] Dextrose 5% in Water 100 300 ml @ 618 mls/hr IV .Q10M PRN with Amiodarone 150 mg Rx#:[id number] Oral 700 550 Output: Chest Tube Drainage 50 100 15 Mediastinal and left 50 pleural Pleural Catheter Left 100 15 Urine 1410 950 0 Other: Voiding Method Indwelling Catheter Urinal ABP, PAP, CO, CI - Last Documented Arterial Blood Pressure 110/56 Pulmonary Artery Pressure 16/9 Cardiac Output 4.2 Cardiac Index 1.9 - Exam CONSTITUTIONAL: Sitting up to the bedside chair in the intensive care unit, appears comfortable, cooperative, no apparent acute distress. HEENT: Neck is supple, no JVD, no lymphadenopathy. Right IJ Cordis in place and functioning. RESPIRATORY: Lungs sounds essentially clear throughout, diminished to his bilateral bases. Respirations are symmetrical and nonlabored. Currently on room air with oxygen saturations 96%. Able to achieve 4356-4290 mL on his incentive spirometry. Strong cough. CARDIOVASCULAR: Regular rhythm and tachycardic rate. S1 and S2 present, negative for S3, gallop or murmur. Sternum is stable. Palpable peripheral pulses bilaterally, no edema to his bilateral lower extremities. No calf pain or tenderness noted. Heart hugger in place with patient demonstrating appr opriate use. Knee-high MARK hose and sequential compression devices in place to his bilateral lower extremities. GASTROINTESTINAL: Abdomen soft, nontender, nondistended. Active bowel sounds present 4 quadrants. Tolerating diet. Passing flatus. No guarding or rigidity. GENITOURINARY: Continues to void. Output 450 mL in the last 8 hours. INTEGUMENTARY: Skin is warm and dry with no evidence of clubbing or cyanosis. Midline sternal incision clean dry and well approximated, covered with dry intact dressing. Left arm radial artery harvest sites well approximated without redness or drainage. NEUROLOGIC: Cranial nerves II through XII intact. No focal deficits. MUSKULOSKELETAL: Able to move all extremities, strength equal bilaterally. PSYCHIATRIC: Alert and oriented to person place and time, appropriate affect, intact judgment and insight. INVASIVE LINES AND TUBES: Left pleural chest tubes present and connected to low continuous wall suction, no air leaks present. Left pleural tubes with 90 mL of thin serosanguineous drainage overnight, 180 mL output in the last 24 hours. At rial and ventricular epicardial pacemaker wires present, connected to generator, VVI backup rate 50 bpm. Right internal jugular Cordis, right radial arterial line present. - Allied health notes Allied health notes reviewed: nursing - Labs CBC & Chem 7: 07/22/21 06:00 07/22/21 06:00 Labs: Abnormal Lab Results - Last 24 Hours (Table) 07/21/21 07/21/21 07/21/21 Range/Units 11:59 16:20 21:37 WBC (3.8-10.6) k/uL RBC (4.30-5.90) m/uL Hgb (13.0-17.5) gm/dL Hct (39.0-53.0) % Plt Count (150-450) k/uL Neutrophils # (1.3-7.7) k/uL Sodium (137-145) mmol/L Glucose (74-99) mg/dL POC Glucose (mg/dL) 132 H 119 H 124 H (75-99) mg/dL Total Protein (6.3-8.2) g/dL Albumin (3.5-5.0) g/dL 07/22/21 07/22/21 07/22/21 Range/Units 06:00 06:00 06:57 WBC 15.4 H (3.8-10.6) k/uL RBC 2.92 L (4.30-5.90) m/uL Hgb 8.8 L (13.0-17.5) gm/dL Hct 27.7 L (39.0-53.0) % Plt Count 121 L (150-450) k/uL Neutrophils # 12.3 H (1.3-7.7) k/uL Sodium 134 L (137-145) mmol/L Glucose 112 H (74-99) mg/dL POC Glucose (mg/dL) 124 H (75-99) mg/dL Total Protein 5.0 L (6.3-8.2) g/dL Albumin 2.9 L (3.5-5.0) g/dL - Imaging and Cardiology Chest x-ray: report reviewed, image reviewed Assessment and Plan Assessment: 1. Severe aortic valve stenosis, status post aortic valve replacement 2. Two-vessel coronary artery disease, status post 2 vessel CABG 3. History of questionable presyncopal event versus TIA recently 4. Previous tobacco dependence, preoperative FEV1 96% of predicted 5. Osteoarthritis 6. Enlarged prostate 7. Remains unvaccinated against Covid 8. Paroxysmal atrial fibrillation a known common occurrence after cardiac surgery Plan: 1. Continue aspirin, statin, Plavix, beta jalen. Will increase metoprolol t artrate 25 mg by mouth 3 times a day. 2. Continue Norvasc 2.5 mg by mouth daily for radial artery spasm prophylaxis. 3. Encourage incentive spirometry use 10 times every hour while awake. Bronchodilators per pulmonology. 4. Increase activity as tolerated, PT/OT/cardiac rehab following. 5. Will monitor daily labs and chest x-rays. Electrolyte replacement per protocol. 6. GI/DVT prophylaxis. 7. Pain control per current medication regimen. 8. Insulin management per primary care. Patient is not diabetic, preoperative hemoglobin A1c 5.3%. 9. Continue strict and accurate intake and output. Continue Flomax. May bladder scan every 6 hours and when necessary postvoid residual. If greater than 300 mL of urine on bladder scan may straight cath. 10. Daily weights. 11. Remove right IJ Cordis. 12. We will remove his left pleural chest tubes. 13. Continue his atrial and ventricular epicardial pacemaker wires connected to backup bedside pacemaker generator on a VVI 50 BPM. 14. Amiodarone has been switched to 400 mg by mouth twice a day for atrial fibrillation prophylaxis. 15. We will place transfer orders to the third floor cardiac stepdown unit. 16. More recommendations to follow based on patient's clinical course. Time with Patient: Greater than 30
[2021-07-22] MEDS: AMIODARONE 450 MG in DEXTROSE 5% IN WATER 250 ML IV SCH ×2 (09:52)
--- NOTE | 2021-07-22 10:26 | P.PN ---
Subjective Progress Note Date: 07/22/21 This is a 71-year-old gentleman with history of hypertension, hyperlipidemia, CAD and also aortic stenosis. Patient had her 12 replacement with a tissue valve and also bypass surgery with YEE to the LAD and arterial conduit the OM branch. Patient is sitting up in the chair. He seemed to be doing very well complaints of mild chest discomfort but seemed to be controlled with medication. Vital signs are stable. Lungs appeared to be clear. Heart is regular. Overall patient is doing well. Increase activity as tolerated. Objective - Vital Signs Vital signs: Vital Signs Temp 98.7 F 07/22/21 08:01 Pulse 87 07/22/21 10:00 Resp 18 07/22/21 10:00 BP 106/69 07/22/21 10:00 Pulse Ox 96 07/22/21 10:00 FiO2 50 07/19/21 20:00 Intake & Output 07/21/21 07/22/21 07/22/21 18:59 06:59 18:59 Intake Total 1326 982 615.338 Output Total 1460 1050 45 Balance -134 -68 570.338 Weight 104.5 kg Intake: IV 326 432 62 Lactated Ringers 1,000 ml 260 360 50 @ 20 mls/hr IV .Q24H [facility] Rx#:[id number] pressure bags 66 72 12 Intake, IV Titration 300 213.338 Amount Amiodarone 450 mg In 213.338 Dextrose 5% in Water 250 ml @ 0.5 MG/MIN 16.667 mls/hr IV .Q15H [facility] Rx#: [id number] Dextrose 5% in Water 100 300 ml @ 618 mls/hr IV .Q10M PRN with Amiodarone 150 mg Rx#:[id number] Oral 700 550 340 Output: Chest Tube Drainage 50 100 45 Mediastinal and left 50 pleural Pleural Catheter Left 100 45 Urine 1410 950 0 Other: Voiding Method Indwelling Catheter Urinal Urinal ABP, PAP, CO, CI - Last Documented Arterial Blood Pressure 99/53 Pulmonary Artery Pressure 16/9 Cardiac Output 4.2 Cardiac Index 1.9 - Exam GENERAL EXAM: Patient is alert and oriented and doesn't appear to be in any acu te distress HEENT: Normocephalic. Normal reaction of pupils, equal size, normal range of extraocular motion. No erythema or exudates in the throat. NECK: No masses, no nuchal rigidity. CHEST: Postsurgical LUNGS: Equal air entry with no crackles or wheeze. HEART: S1 and S2 normal with no audible mumurs or gallops. Regular rhythm, femorals equal on both sides.. ABDOMEN: No hepatosplenomegaly, normal bowel sounds, no guarding or rigidity. SKIN: No rashes CENTRAL NERVOUS SYSTEM: No focal deficits. EXTREMITIES: No cyanosis, clubbing or edema. - Labs CBC & Chem 7: 07/22/21 06:00 07/22/21 06:00 Labs: Abnormal Lab Results - Last 24 Hours (Table) 07/21/21 07/21/21 07/21/21 Range/Units 11:59 16:20 21:37 WBC (3.8-10.6) k/uL RBC (4.30-5.90) m/uL Hgb (13.0-17.5) gm/dL Hct (39.0-53.0) % Plt Count (150-450) k/uL Neutrophils # (1.3-7.7) k/uL Sodium (137-145) mmol/L Glucose (74-99) mg/dL POC Glucose (mg/dL) 132 H 119 H 124 H (75-99) mg/dL Total Protein (6.3-8.2) g/dL Albumin (3.5-5.0) g/dL 07/22/21 07/22/21 07/22/21 Range/Units 06:00 06:00 06:57 WBC 15.4 H (3.8-10.6) k/uL RBC 2.92 L (4.30-5.90) m/uL Hgb 8.8 L (13.0-17.5) gm/dL Hct 27.7 L (39.0-53.0) % Plt Count 121 L (150-450) k/uL Neutrophils # 12.3 H (1.3-7.7) k/uL Sodium 134 L (137-145) mmol/L Glucose 112 H (74-99) mg/dL POC Glucose (mg/dL) 124 H (75-99) mg/dL Total Protein 5.0 L (6.3-8.2) g/dL Albumin 2.9 L (3.5-5.0) g/dL Assessment and Plan (1) Status post aorto-coronary artery bypass graft Current Visit: Yes Status: Acute Code(s): Z95.1 - PRESENCE OF AORTOCORONARY BYPASS GRAFT SNOMED Code(s): 031947426 (2) Status post aortic valve replacement Current Visit: Yes Status: Acute Code(s): Z95.2 - PRESENCE OF PROSTHETIC HEART VALVE SNOMED Code(s): 1453344696329 (3) Essential hypertension Current Visit: Yes Status: Acute Code(s): I10 - ESSENTIAL (PRIMARY) HYPERTENSION SNOMED Code(s): 02051360 (4) Hypercholesterolemia Current Visit: Yes Status: Acute Code(s): E78.00 - PURE HYPERCHOLESTEROLEMIA, UNSPECIFIED SNOMED Code(s): 77124205 Plan: Continue current medical therapy. Increase activity as tolerated. Incentive spirometry.
--- NOTE | 2021-07-22 11:13 | P.PN ---
Subjective Progress Note Date: 07/22/21 This is a 71-year-old male, who was seen in consultation, room 267. The patient is postop day #1, status post aortic valve replacement surgery for severe aortic stenosis, two-vessel bypass grafting, including YEE to LAD, and radial artery to obtuse marginal artery, clipping of a left atrial appendage, and intraoperative transesophageal echocardiogram. The patient was extubated about 5 hours and 15 minutes after leaving the operating room. Currently he is resting comfortably. He's on 3 L nasal cannula, Lactated Ringer's at 50 mL an hour, Cardizem 5 mg an hour, and insulin drip at 1.5 units an hour. He has no complaints. White count of 19.9, hemoglobin 12, hematocrit 38.1, and platelet count 168,000. Sodium 134, potassium 4, chlorides 106, CO2 24, BUN 14, and creatinine 0.54. Chest x-ray shows some patchy bibasilar infiltrates or atelectasis. The patient is seen today 07/21/2021 in follow-up in the intensive care unit. Postoperative day #2, status post aortic valve replacement for severe stenosis and coronary artery disease with two-vessel bypass grafting including a YEE to LAD and radial artery to the obtuse marginal branch. He is currently sitting up in a chair at bedside. Awake and alert in no acute distress. Doing quite well. Maintaining O2 saturations in the 90s on room air. Pulling greater than 1000 on the incentive spirometer. His lactated Ringer's at 30 MLS per hour. His chest x-ray revealing mild cardiomegaly and chronic changes of patchy left lung edema/infiltrates redemonstrated. No significant change. White count 16.6. Hemoglobin 9.8. Platelet count 120,000. Sodium 134. Potassium 4.2. BUN 13. Creatinine 0.61. Glucose 120. He did receive additional albumin this morning. He remains on bronchodilators. He did develop atrial fibrillation x-ray 10:30 this morning is now on amiodarone drip at 1 mg/m. The patient is seen today 07/22/2021 in follow-up in the intensive care unit. Postoperative day #3. He is currently sitting up in bed. Awake and alert in no acute distress. Maintaining good O2 saturations in the 90s on room air. No IV fluids. Chest x-ray reveals multifocal airspace opacities more so on the left. No evidence of pneumothorax. White count 15.4. Hemoglobin 8.8. Platelets 121. Sodium 134. Potassium 4.0. BUN 11. Creatinine 0.69. He is currently in sinus rhythm. Afebrile. Hemodynamically stable. Remains on DuoNeb inhalations, working well with the incentive spirometer. Objective - Vital Signs Vital signs: Vital Signs Temp 98.7 F 07/22/21 08:01 Pulse 82 07/22/21 11:00 Resp 18 07/22/21 11:00 BP 101/75 07/22/21 11:00 Pulse Ox 96 07/22/21 11:00 FiO2 50 07/19/21 20:00 Intake & Output 07/21/21 07/22/21 07/22/21 18:59 06:59 18:59 Intake Total 1326 982 615.338 Output Total 1460 1050 45 Balance -134 -68 570.338 Weight 104.5 kg Intake: IV 326 432 62 Lactated Ringers 1,000 ml 260 360 50 @ 20 mls/hr IV .Q24H [facility] Rx#:[id number] pressure bags 66 72 12 Intake, IV Titration 300 213.338 Amount Amiodarone 450 mg In 213.338 Dextrose 5% in Water 250 ml @ 0.5 MG/MIN 16.667 mls/hr IV .Q15H [facility] Rx#: [id number] Dextrose 5% in Water 100 300 ml @ 618 mls/hr IV .Q10M PRN with Amiodarone 150 mg Rx#:[id number] Oral 700 550 340 Output: Chest Tube Drainage 50 100 45 Mediastinal and left 50 pleural Pleural Catheter Left 100 45 Urine 1410 950 0 Other: Voiding Method Indwelling Catheter Urinal Urinal ABP, PAP, CO, CI - Last Documented Arterial Blood Pressure 99/53 Pulmonary Artery Pressure 16/9 Cardiac Output 4.2 Cardiac Index 1.9 - Exam GENERAL EXAM: Alert, very pleasant 71-year-old gentleman sitting up in bed. On room air. Currently comfortable in no apparent distress. HEAD: Normocephalic. EYES: Normal reaction of pupils, equal size. NOSE: Clear with pink turbinates. THROAT: No erythema or exudates. NECK: No masses, no JVD. CHEST: Hard collar in place. Sternal incision clean dry and well approximated. LUNGS: Equal air entry with no crackles, wheeze, rhonchi or dullness. CVS: S1 and S2 normal with no audible murmur, regular rhythm. ABDOMEN: No hepatosplenomegaly, normal bowel sounds, no guarding or rigidity. SPINE: No scoliosis or deformity SKIN: No rashes CENTRAL NERVOUS SYSTEM: No focal deficits, tone is normal in all 4 extremities. EXTREMITIES: There is no peripheral edema. No clubbing, no cyanosis. Peripheral pulses are intact. - Labs CBC & Chem 7: 07/22/21 06:00 07/22/21 06:00 Labs: Abnormal Lab Results - Last 24 Hours (Table) 07/21/21 07/21/21 07/21/21 Range/Units 11:59 16:20 21:37 WBC (3.8-10.6) k/uL RBC (4.30-5.90) m/uL Hgb (13.0-17.5) gm/dL Hct (39.0-53.0) % Plt Count (150-450) k/uL Neutrophils # (1.3-7.7) k/uL Sodium (137-145) mmol/L Glucose (74-99) mg/dL POC Glucose (mg/dL) 132 H 119 H 124 H (75-99) mg/dL Total Protein (6.3-8.2) g/dL Albumin (3.5-5.0) g/dL 07/22/21 07/22/21 07/22/21 Range/Units 06:00 06:00 06:57 WBC 15.4 H (3.8-10.6) k/uL RBC 2.92 L (4.30-5.90) m/uL Hgb 8.8 L (13.0-17.5) gm/dL Hct 27.7 L (39.0-53.0) % Plt Count 121 L (150-450) k/uL Neutrophils # 12.3 H (1.3-7.7) k/uL Sodium 134 L (137-145) mmol/L Glucose 112 H (74-99) mg/dL POC Glucose (mg/dL) 124 H (75-99) mg/dL Total Protein 5.0 L (6.3-8.2) g/dL Albumin 2.9 L (3.5-5.0) g/dL Assessment and Plan Assessment: Postop day #3, status post aortic valve replacement for severe aortic stenosis, and two-vessel bypass grafting, including YEE to LAD, and radial artery to OM, secondary to CAD, left atrial appendage ligation, and intraoperative transesophageal echocardiogram Routine postoperative ventilator management, extubated and currently on room air Atrial fibrillation with rapid ventricular response, expected outcome of surgery History of CAD History of hypertension History of severe aortic stenosis History of hyperlipidemia History of kidney stones History of BPH Plan: The patient was seen and evaluated Chest x-ray and labs reviewed Currently stable and on room air Increase activity as tolerated To be transferred to the selective care unit today We will continue to follow I have personally seen and examined the patient, performed the documentation and the assessment and plan as written. Number of minutes spent on the visit: 10.
[2021-07-22 11:34] LABS: Glucose,Whole Blood 86 mg/dL (75-99)
[2021-07-22] MEDS: TAMSULOSIN 0.4 MG CAP.ER.24H PO SCH (12:43)
[2021-07-22] MEDS: amLODIPine 2.5 MG TAB PO SCH (12:43)
--- NOTE | 2021-07-22 12:47 | P.PN ---
Subjective Progress Note Date: 07/22/21 HISTORY OF PRESENT ILLNESS This is a 71-year-old male will be newly established with Dr. Reeves with past medical history of kidney stones, benign prostatic hypertrophy, gastroesophageal reflux disease, hypothyroidism. Patient gives history that he has always been very active has been living in [place] and recently moved back to [place]. 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 He has noticed recently that he has had more fatigue with both of these activities and also experiencing some dyspnea with exertion. Patient gives history that he was sitting at a table acr oss from his and developed TIA like symptoms but did not seek treatment at that time. He talked to his neighbor and neighbor recommended that he see Dr. Steele. Patient has been established with Dr. Steele and underwent CORTEZ which revealed normal systolic function, trileaflet aortic valve with severe aortic stenosis, [id number] mitral regurgitation, [id number] tricuspid regurgitation. Cardiac catheterization revealed severe two-vessel coronary artery disease involving the left circumflex and LAD with recommendations for coronary artery bypass grafting to the LAD and OM and aortic valve replacement. Patient has been brought into the hospital by Dr. Dudley and is status post aor tic valve replacement with bioprosthetic aortic valve and coronary artery bypass grafting 2 with left internal mammary artery, left anterior descending artery, radial artery of the aorta to the left obtuse marginal artery, clip ligation of the left atrial appendage. Patient is postop day #1. He has been successfully extubated and remains in the intensive care unit.. Repeat chest x-ray reveals WBC 19.9, hemoglobin 12, platelet count 168. Sodium 134, potassium 4.0, chloride 106, CO2 24, BUN 14, creatinine 0.54. Blood sugar 131. 6/3: Patient remains in the intensive care unit, sitting in a recliner at the bedside. He has been afebrile, heart rate running between 90-133 this morning. Blood pressure 101/40, pulse ox 92% on room air. WBC 16.6, hemoglobin 9.8, platelet count 120. Sodium 134, potassium 4.2, chloride 102, CO2 28, BUN 13 and creatinine 0.61. Capillary blood glucose runn ing between 118 and 135. Patient is reaching 2000 mL on incentive spirometry. Duarte catheter was just removed and patient has not voided as of yet. Patient developed atrial fibrillation started on amiodarone drip. Repeat chest x-ray reveals mild cardiomegaly and chronic changes with patchy left lung edema and/or infiltrates. No significant change. 07/22: Patient is found sitting up in a chair eating lunch in the intensive care unit. Patient has no drips or chest tube in place. Dressing to the midline chest present clean and dry. Patient is reaching 2000 ML done on incentive spirometer. Patient has been walking with the intensive care unit. Plan for him to be transferred either tonight or tomorrow. With plans for discharge on Saturday. Blood sugars averaging 120s to 150s. We will decrease Levemir to 5 units. Patient does not have history of diabetes. Patient remains afebrile, h eart rate 82, respirations 18, blood pressure 101/75 pulse ox 96% on room air. REVIEW OF SYSTEMS Constitutional: No fever, no chills, no night sweats. No weight change. No weakness, reports fatigue no lethargy. No daytime sleepiness. EENT: No headache. No blurred vision or double vision, no loss of vision. No loss of Hearing, no ringing in the ears, no dizziness. No nasal drainage or congestion. No epistaxis. No sore throat. Lungs: No shortness of breath, cough, no sputum production. No wheezing. Cardiovascular: Generalized chest discomfort, no lower extremity edema. No palpitations. No paroxysmal nocturnal dyspnea. No orthopnea. No lightheadedness or dizziness. No syncopal episodes. Abdominal: No abdominal pain. No nausea, vomiting. No diarrhea. No constipation. No bloody or tarry stools. No loss of appetite. Genitourinary: No dysuria, increased frequency, urgency. No urinary retention. Musculoskeletal: No myalgias. No muscle weakness, no gait dysfunction, no frequent falls. No back pain. No neck pain. Integumentary: No wounds, no lesions. No rash or pruritus. No unusual bruising. No change in hair or nails. Neurologic: No aphasia. No facial droop. No change in mentation. No head injury. No headache. No paralysis. No paresthesia. Psychiatric: No depression. No anxiety. No mood swings. Endocrine: No abnormal blood sugars. No weight change. No excessive sweating or thirst. PHYSICAL EXAMINATION Gen: This is a 71-year-old male. He is resting on recliner in the intensive care unit and appears to be comfortable at rest HEENT: Head is atraumatic, normocephalic. Pupils equal, round. Sclerae is anicteric. NECK: Supple. No JVD. No lymphadenopathy. No thyromegaly. Right IJ [place]/Cordis. LUNGS: Clear to auscultation. No wheezes or rhonchi. No intercostal retractions. Mediastinal chest tube HEART: Irregular rate and rhythm. No murmur. playground monitor atrial fibrillation. ABDOMEN: Soft. Bowel sounds are present. No masses. No tenderness. EXTREMITIES: No pedal edema. No calf tenderness. NEUROLOGICAL: Patient is awake, alert and oriented x3. Cranial nerves 2 through 12 are grossly intact. ASSESSMENT AND PLAN 1. Coronary artery disease status post coronary artery bypass grafting 2 with left internal mammary artery, left anterior descending artery, radial artery of the aorta to the left obtuse marginal artery, clip ligation of the left atrial appendage, /. Continue current management per cardiothoracic team, track oiler. Decrease Levemir to 5 units daily and NovoLog scale. 2. Severe aortic stenosis status post aortic valve replacement with bioprosthetic aortic valve. Patient is postop day #1. Continue current management per cardiothoracic team, track oiler. 3. Benign prostatic hypertrophy. Monitor for urinary retention. Patient started on Flomax 0.4 mg daily. Duarte catheter removed 07/21. 4. History of kidney stones, stable. No complaints. 5. Remote history of tobacco use. 6. Generalized osteoarthritis. 7. GI prophylaxis. Protonix. 8. DVT prophylaxis. Heparin subcu. 9. Possible history of TIA symptoms. Patient did not seek treatment at the time. 10. History of hypothyroidism, gastroesophageal reflux disease resolved with weight loss. 11. Paroxysmal atrial fibrillation, not unexpected following surgery. Patient is on amiodarone drip. DISCHARGE PLAN Home with [facility]. Impression and plan of care have been directed as dictated by the signing physician. Eileen Lewis nurse practitioner acting as scribe for signing physician. Objective - Vital Signs Vital signs: Vital Signs Temp 98.7 F 07/22/21 08:01 Pulse 94 07/22/21 12:24 Resp 18 07/22/21 11:00 BP 101/75 07/22/21 11:00 Pulse Ox 96 07/22/21 11:00 FiO2 50 07/19/21 20:00 Intake & Output 07/21/21 07/22/21 07/22/21 18:59 06:59 18:59 Intake Total 1326 982 615.338 Output Total 1460 1050 45 Balance -134 -68 570.338 Weight 104.5 kg Intake: IV 326 432 62 Lactated Ringers 1,000 ml 260 360 50 @ 20 mls/hr IV .Q24H [facility] Rx#:[id number] pressure bags 66 72 12 Intake, IV Titration 300 213.338 Amount Amiodarone 450 mg In 213.338 Dextrose 5% in Water 250 ml @ 0.5 MG/MIN 16.667 mls/hr IV .Q15H [facility] Rx#: [id number] Dextrose 5% in Water 100 300 ml @ 618 mls/hr IV .Q10M PRN with Amiodarone 150 mg Rx#:[id number] Oral 700 550 340 Output: Chest Tube Drainage 50 100 45 Mediastinal and left 50 pleural Pleural Catheter Left 100 45 Urine 1410 950 0 Other: Voiding Method Indwelling Catheter Urinal Urinal ABP, PAP, CO, CI - Last Documented Arterial Blood Pressure 99/53 Pulmonary Artery Pressure 16/9 Cardiac Output 4.2 Cardiac Index 1.9 - Labs CBC & Chem 7: 07/22/21 06:00 07/22/21 06:00 Labs: Abnormal Lab Results - Last 24 Hours (Table) 07/21/21 07/21/21 07/22/21 Range/Units 16:20 21:37 06:00 WBC 15.4 H (3.8-10.6) k/uL RBC 2.92 L (4.30-5.90) m/uL Hgb 8.8 L (13.0-17.5) gm/dL Hct 27.7 L (39.0-53.0) % Plt Count 121 L (150-450) k/uL Neutrophils # 12.3 H (1.3-7.7) k/uL Sodium (137-145) mmol/L Glucose (74-99) mg/dL POC Glucose (mg/dL) 119 H 124 H (75-99) mg/dL Total Protein (6.3-8.2) g/dL Albumin (3.5-5.0) g/dL 07/22/21 07/22/21 Range/Units 06:00 06:57 WBC (3.8-10.6) k/uL RBC (4.30-5.90) m/uL Hgb (13.0-17.5) gm/dL Hct (39.0-53.0) % Plt Count (150-450) k/uL Neutrophils # (1.3-7.7) k/uL Sodium 134 L (137-145) mmol/L Glucose 112 H (74-99) mg/dL POC Glucose (mg/dL) 124 H (75-99) mg/dL Total Protein 5.0 L (6.3-8.2) g/dL Albumin 2.9 L (3.5-5.0) g/dL
[2021-07-22 16:30] LABS: Glucose,Whole Blood 104 mg/dL (75-99)
[2021-07-22 20:29] LABS: Glucose,Whole Blood 120 mg/dL (75-99)
[2021-07-22] MEDS: SENNOSIDES-DOCUSATE SODIUM 1 EACH TAB PO SCH (20:56)
[2021-07-23 02:33] LABS: Glucose,Whole Blood 116 mg/dL (75-99)
[2021-07-23 05:09] LABS: Basophils # (A) 0.1 k/uL (0-0.2); Basophils % (A) 1 %; Eosinophils # (A) 0.4 k/uL (0-0.7); Eosinophils % (A) 3 %; HCT 28.2 % (39.0-53.0); HGB 8.8 gm/dL (13.0-17.5); Lymphocytes # (A) 1.6 k/uL (1.0-4.8); Lymphocytes % (A) 12 %; MCH 29.8 pg (25.0-35.0); MCHC 31.3 g/dL (31.0-37.0); MCV 95.2 fL (80.0-100.0); Mean Platelet Volume 7.6; Monocytes # (A) 0.8 k/uL (0-1.0); Monocytes % (A) 6 %; Neutrophils # (A) 10.3 k/uL (1.3-7.7); Neutrophils % (A) 77 %; Platelet Count 167 k/uL (150-450); RBC 2.96 m/uL (4.30-5.90); RDW 12.6 % (11.5-15.5); WBC 13.3 k/uL (3.8-10.6)
[2021-07-23 05:30] LABS: ALT 17 U/L (4-49); AST 29 U/L (17-59); Alkaline Phosphatase 61 U/L (38-126); Anion Gap 5 mmol/L; Blood Urea Nitrogen 12 mg/dL (9-20); Calcium 8.4 mg/dL (8.4-10.2); Carbon Dioxide 27 mmol/L (22-30); Chloride 102 mmol/L (98-107); Glucose 126 mg/dL (74-99); Magnesium 1.9 mg/dL (1.6-2.3); Potassium 4.1 mmol/L (3.5-5.1); Sodium 134 mmol/L (137-145); Total Bilirubin 0.8 mg/dL (0.2-1.3); Total Protein 5.2 g/dL (6.3-8.2)
[2021-07-23 05:31] LABS: African American GFR (CKD) >90 (>60 ml/min/1.73 sqM); Non-African American GFR(CKD) >90 (>60 ml/min/1.73 sqM)
[2021-07-23] MEDS: ACETAMINOPHEN TAB 325 MG TAB PO PRN ×2 (05:39→21:08)
[2021-07-23] MEDS: PANTOPRAZOLE 40 MG TABLET PO SCH (05:40)
[2021-07-23 06:26] LABS: Glucose,Whole Blood 120 mg/dL (75-99)
[2021-07-23] MEDS: INSULIN ASPART (NovoLOG) 100 UNIT/ML VIAL SQ SCH ×4 (06:45→21:02)
--- NOTE | 2021-07-23 06:58 | XR ---
EXAMINATION TYPE: XR chest 2V DATE OF EXAM: 07/23/2021 COMPARISON: 07/22/2021 HISTORY: Postcardiac surgery. TECHNIQUE: Frontal and lateral views of the chest are obtained. FINDINGS: There are median sternotomy wires otherwise the osseous structures are intact. The heart size is normal. The pulmonary vasculature appears slightly congested. There is no airspace opacity. There is no pneumothorax. There are small bilateral venous IMPRESSION: No significant interval change
[2021-07-23] MEDS ORDERED: INSULIN DETEMIR (LEVEMIR) 100 UNIT/ML SYR SQ SCH (07:00)
[2021-07-23] MEDS: IPRATROPIUM-ALBUTEROL 3 ML NEB INHALATION SCH ×4 (07:28→20:14)
[2021-07-23] MEDS: ASPIRIN 325 MG TAB PO SCH (08:27)
[2021-07-23] MEDS: METOPROLOL TARTRATE 25 MG TAB PO SCH ×3 (08:27→22:13)
[2021-07-23] MEDS: CLOPIDOGREL 75 MG TAB PO SCH (08:27)
[2021-07-23] MEDS: AMIODARONE 200 MG TAB PO SCH ×2 (08:27→21:07)
[2021-07-23] MEDS: ATORVASTATIN 80 MG TAB PO SCH (08:27)
[2021-07-23] MEDS: MAGNESIUM SULFATE-D5W PMX 1 GM in DEXTROSE/WATER 1 100ML.BAG IVPB SCH ×2 (08:28→12:39)
[2021-07-23] MEDS: FONDAPARINUX 2.5 MG/0.5 ML SYRINGE SQ SCH (08:28)
--- NOTE | 2021-07-23 10:48 | P.PN ---
Subjective Progress Note Date: 07/23/21 Principal diagnosis: Severe aortic valve stenosis, two-vessel coronary artery disease. Past medical history significant for questionable presyncopal event versus TIA recently, pre vious tobacco dependence, osteoarthritis, enlarged prostate. Remains unvaccinated against Covid-19. POD #4 aortic valve replacement with a #25 mm Urias Inspiris bioprosthetic aortic valve, coronary artery bypass grafting 2 with the left internal mammary artery to the left anterior descending coronary artery, left radial artery off the aorta to the first obtuse marginal coronary artery, endoscopic left radial artery harvest, clip ligation of the left atrial appendage with a 35 mm AtriClip, intraoperative transesophageal echocardiogram. Paroxysmal atrial fibrillation, a known common occurrence after cardiac surgery. The patient was seen and examined and follow-up this morning 07/23/2021 at his bedside on the cardiac stepdown unit. Currently he is sitting up to the bedside chair, is awake, alert, oriented 3 and is in no acute distress. He was up ambulating in the cardiac stepdown unit hallway with standby assistance, tolerated well. Denies any complaints of pain or shortness of breath at this time. He remains hemodynamically stable and is currently on no inotropic or pressor support. Remote telemetry showing normal sinus rhythm heart rate 81 BPM. Oxygen saturation are 95% on room air and he is achieving 2500 mL on his incentive spirometry. Atrial and ventricular epicardial pacemaker wires in place and grounded. No further episodes of atrial fibrillation. Laboratory results this morning show a WBC count of 13.3 which is trending down from 15.4, hemoglobin 8.8, hematocrit 28.2, platelets 167, sodium 134, potassium 4.1, BUN 12, creatinine 0.78, calcium 8.4 magnesium 1.9. The patient has been afebrile last 24 hours. Chest x-ray reviewed. Objective - Vital Signs Vital signs: Vital Signs Temp 98.7 F 07/23/21 08:25 Pulse 95 07/23/21 08:25 Resp 16 07/23/21 08:25 BP 94/57 07/23/21 08:25 Pulse Ox 96 07/23/21 08:25 FiO2 50 07/19/21 20:00 Intake & Output 07/22/21 07/23/21 07/23/21 18:59 06:59 18:59 Intake Total 980.338 0 Output Total 1095 Balance -114.662 0 Weight 104.5 kg Intake: IV 62 Lactated Ringers 1,000 ml 50 @ 20 mls/hr IV .Q24H [facility] Rx#:[id number] pressure bags 12 Intake, IV Titration 213.338 Amount Amiodarone 450 mg In 213.338 Dextrose 5% in Water 250 ml @ 0.5 MG/MIN 16.667 mls/hr IV .Q15H [facility] Rx#: [id number] Oral 705 0 Output: Chest Tube Drainage 45 Pleural Catheter Left 45 Urine 1050 Other: Voiding Method Urinal Urinal Urinal # Voids 2 # Bowel Movements 1 ABP, PAP, CO, CI - Last Documented Arterial Blood Pressure 99/53 Pulmonary Artery Pressure 16/9 Cardiac Output 4.2 Cardiac Index 1.9 - Exam CONSTITUTIONAL: Sitting up to the bedside chair on the cardiac stepdown unit, appears comfortable, cooperative, no apparent acute distress. HEENT: Neck is supple, no JVD, no lymphadenopathy. RESPIRATORY: Lungs sounds essentially clear throughout, diminished to his bilateral bases. Respirations are symmetrical and nonlabored. Currently on room air with oxygen saturations 95%. Able to achieve 2500 mL on his incentive spirometry. Strong cough. CARDIOVASCULAR: Regular rhythm and tachycardic rate. S1 and S2 present, negative for S3, gallop or murmur. Sternum is stable. Palpable peripheral pulses bilaterally, no edema to his bilateral lower extremities. No calf pain or tenderness noted. Heart hugger in place with patient demonstrating appropriate use. Knee-high MARK hose and sequential compression devices in place to his bilateral lower extremities. Remote telemetry showing normal sinus rhyth m heart rate 81 BPM. GASTROINTESTINAL: Abdomen soft, nontender, nondistended. Active bowel sounds present 4 quadrants. Tolerating diet. Passing flatus. No guarding or rigidity. GENITOURINARY: Continues to void. INTEGUMENTARY: Skin is warm and dry with no evidence of clubbing or cyanosis. Midline sternal incision clean dry and well approximated, covered with dry intact dressing. Left arm radial artery harvest sites well approximated without redness or drainage. NEUROLOGIC: Cranial nerves II through XII intact. No focal deficits. MUSKULOSKELETAL: Able to move all extremities, strength equal bilaterally. PSYCHIATRIC: Alert and oriented to person place and time, appropriate affect, intact judgment and insight. INVASIVE LINES AND TUBES: Atrial and ventricular epicardial pacemaker wires present, and grounded. - Allied health notes Allied health notes reviewed: nursing - Labs CBC & Chem 7: 07/23/21 04:07 07/23/21 04:07 Labs: Abnormal Lab Results - Last 24 Hours (Table) 07/22/21 07/22/21 07/23/21 Range/Units 16:26 20:27 02:21 WBC (3.8-10.6) k/uL RBC (4.30-5.90) m/uL Hgb (13.0-17.5) gm/dL Hct (39.0-53.0) % Neutrophils # (1.3-7.7) k/uL Sodium (137-145) mmol/L Glucose (74-99) mg/dL POC Glucose (mg/dL) 104 H 120 H 116 H (75-99) mg/dL Total Protein (6.3-8.2) g/dL Albumin (3.5-5.0) g/dL 07/23/21 07/23/21 07/23/21 Range/Units 04:07 04:07 06:23 WBC 13.3 H (3.8-10.6) k/uL RBC 2.96 L (4.30-5.90) m/uL Hgb 8.8 L (13.0-17.5) gm/dL Hct 28.2 L (39.0-53.0) % Neutrophils # 10.3 H (1.3-7.7) k/uL Sodium 134 L (137-145) mmol/L Glucose 126 H (74-99) mg/dL POC Glucose (mg/dL) 120 H (75-99) mg/dL Total Protein 5.2 L (6.3-8.2) g/dL Albumin 3.0 L (3.5-5.0) g/dL - Imaging and Cardiology Chest x-ray: report reviewed, image reviewed Assessment and Plan Assessment: 1. Severe aortic valve stenosis, status post aortic valve replacement 2. Two-vessel coronary artery disease, status post 2 vessel CABG 3. History of questionable presyncopal event versus TIA recently 4. Previous tobacco dependence, preoperative FEV1 96% of predicted 5. Osteoarthritis 6. Enlarged prostate 7. Remains unvaccinated against Covid 8. Paroxysmal atrial fibrillation a known common occurrence after cardiac surgery Plan: 1. Continue aspirin, statin, Plavix, beta jalen. Will increase metoprolol tartrate as tolerated. 2. Continue Norvasc 2.5 mg by mouth daily for radial artery spasm prophylaxis. 3. Encourage incentive spirometry use 10 times every hour while awake. Bronchodilators per pulmonology. 4. Increase activity as tolerated, PT/OT/cardiac rehab following. 5. Will monitor daily labs and chest x-rays. Electrolyte replacement per protocol. 6. GI/DVT prophylaxis. 7. Pain control per current medication regimen. 8. Insulin management per primary care. Patient is not diabetic, preoperative hemoglobin A1c 5.3%. 9. Continue strict and accurate intake and output. Continue Flomax. May bladder scan every 6 hours and when necessary postvoid residual. If greater than 300 mL of urine on bladder scan may straight cath. 10. Daily weights. 11. Continue Amiodarone 400 mg by mouth twice a day for atrial fibrillation prophylaxis. 12. Continue atrial and ventricular epicardial pacemaker, currently grounded. 13. Discharge planning is in place, anticipate discharge home with home health care within the next 24 hours. 14. More recommendations to follow based on patient's clinical course. Time with Patient: Greater than 30
--- NOTE | 2021-07-23 10:55 | P.PN ---
Subjective Progress Note Date: 07/23/21 HISTORY OF PRESENT ILLNESS This is a 71-year-old male will be newly established with Dr. Reeves with past medical history of kidney stones, benign prostatic hypertrophy, gastroesophageal reflux disease, hypothyroidism. Patient gives history that he has always been very active has been living in [place] and recently moved back to [place]. 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 He has noticed recently that he has had more fatigue with both of these activities and also experiencing some dyspnea with exertion. Patient gives history that he was sitting at a table acr oss from his and developed TIA like symptoms but did not seek treatment at that time. He talked to his neighbor and neighbor recommended that he see Dr. Steele. Patient has been established with Dr. Steele and underwent CORTEZ which revealed normal systolic function, trileaflet aortic valve with severe aortic stenosis, [id number] mitral regurgitation, [id number] tricuspid regurgitation. Cardiac catheterization revealed severe two-vessel coronary artery disease involving the left circumflex and LAD with recommendations for coronary artery bypass grafting to the LAD and OM and aortic valve replacement. Patient has been brought into the hospital by Dr. Dudley and is status post aor tic valve replacement with bioprosthetic aortic valve and coronary artery bypass grafting 2 with left internal mammary artery, left anterior descending artery, radial artery of the aorta to the left obtuse marginal artery, clip ligation of the left atrial appendage. Patient is postop day #1. He has been successfully extubated and remains in the intensive care unit.. Repeat chest x-ray reveals WBC 19.9, hemoglobin 12, platelet count 168. Sodium 134, potassium 4.0, chloride 106, CO2 24, BUN 14, creatinine 0.54. Blood sugar 131. 6/3: Patient remains in the intensive care unit, sitting in a recliner at the bedside. He has been afebrile, heart rate running between 90-133 this morning. Blood pressure 101/40, pulse ox 92% on room air. WBC 16.6, hemoglobin 9.8, platelet count 120. Sodium 134, potassium 4.2, chloride 102, CO2 28, BUN 13 and creatinine 0.61. Capillary blood glucose runn ing between 118 and 135. Patient is reaching 2000 mL on incentive spirometry. Duarte catheter was just removed and patient has not voided as of yet. Patient developed atrial fibrillation started on amiodarone drip. Repeat chest x-ray reveals mild cardiomegaly and chronic changes with patchy left lung edema and/or infiltrates. No significant change. 07/22: Patient is found sitting up in a chair eating lunch in the intensive care unit. Patient has no drips or chest tube in place. Dressing to the midline chest present clean and dry. Patient is reaching 2000 ML done on incentive spirometer. Patient has been walking with the intensive care unit. Plan for him to be transferred either tonight or tomorrow. With plans for discharge on Saturday. Blood sugars averaging 120s to 150s. We will decrease Levemir to 5 units. Patient does not have history of diabetes. Patient remains afebrile, h eart rate 82, respirations 18, blood pressure 101/75 pulse ox 96% on room air. 07/23: Patient fell sitting up in the chair on . He states that he is feeling much better. Patient has been ambulatory on the unit. Continues to reach 2000 ML's on the incentive spirometer. Plan is for discharge on Saturday. Patient does have lower extremity edema. Blood sugars are averaging 80s to 120s. We will stop the Levemir and start the patient on tradjenta. However the plan is for him to go home on Jardience. Patient remains afebrile, heart rate 95, respirations 16, blood pressure 94/57, pulse ox 96% on room air. REVIEW OF SYSTEMS Constitutional: No fever, no chills, no night sweats. No weight change. No weakness, reports fatigue no lethargy. No daytime sleepiness. EENT: No headache. No blurred vision or double vision, no loss of vision. No loss of Hearing, no ringing in the ears, no dizziness. No nasal drainage or congestion. No epistaxis. No sore throat. Lungs: No shortness of breath, cough, no sputum production. No wheezing. Cardiovascular: Generalized chest discomfort, no lower extremity edema. No palpitations. No paroxysmal nocturnal dyspnea. No orthopnea. No lightheadedness or dizziness. No syncopal episodes. Abdominal: No abdominal pain. No nausea, vomiting. No diarrhea. No constipation. No bloody or tarry stools. No loss of appetite. Genitourinary: No dysuria, increased frequency, urgency. No urinary retention. Musculoskeletal: No myalgias. No muscle weakness, no gait dysfunction, no frequent falls. No back pain. No neck pain. Integumentary: No wounds, no lesions. No rash or pruritus. No unusual bruising. No change in hair or nails. Neurologic: No aphasia. No facial droop. No change in mentation. No head injury. No headache. No paralysis. No paresthesia. Psychiatric: No depression. No anxiety. No mood swings. Endocrine: No abnormal blood sugars. No weight change. No excessive sweating or thirst. PHYSICAL EXAMINATION Gen: This is a 71-year-old male. He is resting on recliner in the intensive care unit and appears to be comfortable at rest HEENT: Head is atraumatic, normocephalic. Pupils equal, round. Sclerae is anicteric. NECK: Supple. No JVD. No lymphadenopathy. No thyromegaly. Right IJ [place]is. LUNGS: Clear to auscultation. No wheezes or rhonchi. No intercostal retractions. Mediastinal chest tube HEART: Irregular rate and rhythm. No murmur. youth nutritional monitor atrial fibrillation. ABDOMEN: Soft. Bowel sounds are present. No masses. No tenderness. EXTREMITIES: Bilateral 2+ pedal edema. No calf tenderness. NEUROLOGICAL: Patient is awake, alert and oriented x3. Cranial nerves 2 through 12 are grossly intact. ASSESSMENT AND PLAN 1. Coronary artery disease status post coronary artery bypass grafting 2 with left internal mammary artery, left anterior descending artery, radial artery of the aorta to the left obtuse marginal artery, clip ligation of the left atrial appendage, /. Continue current management per cardiothoracic team, jordan man. Discontinue Levemir, continue NovoLog. Patient was started on tradjenta. For discharge he will be changed to jardiance. 2. Severe aortic stenosis status post aortic valve replacement with bioprosthetic aortic valve. Patient is postop day #1. Continue current management per cardiothoracic team, jordan man. 3. Benign prostatic hypertrophy. Monitor for urinary retention. Patient started on Flomax 0.4 mg daily. Duarte catheter removed 07/21. 4. History of kidney stones, stable. No complaints. 5. Remote history of tobacco use. 6. Generalized osteoarthritis. 7. GI prophylaxis. Protonix. 8. DVT prophylaxis. Heparin subcu. 9. Possible history of TIA symptoms. Patient did not seek treatment at the time. 10. History of hypothyroidism, gastroesophageal reflux disease resolved with weight loss. 11. Paroxysmal atrial fibrillation, not unexpected following surgery. Patient is on amiodarone drip. DISCHARGE PLAN Home with [facility] possibly Saturday Impression and plan of care have been directed as dictated by the signing physician. Eileen Lewis nurse practitioner acting as scribe for signing physician. Objective - Vital Signs Vital signs: Vital Signs Temp 98.7 F 07/23/21 08:25 Pulse 95 07/23/21 08:25 Resp 16 07/23/21 08:25 BP 94/57 07/23/21 08:25 Pulse Ox 96 07/23/21 08:25 FiO2 50 07/19/21 20:00 Intake & Output 07/22/21 07/23/21 07/23/21 18:59 06:59 18:59 Intake Total 980.338 0 Output Total 1095 Balance -114.662 0 Weight 104.5 kg Intake: IV 62 Lactated Ringers 1,000 ml 50 @ 20 mls/hr IV .Q24H [facility] Rx#:[id number] pressure bags 12 Intake, IV Titration 213.338 Amount Amiodarone 450 mg In 213.338 Dextrose 5% in Water 250 ml @ 0.5 MG/MIN 16.667 mls/hr IV .Q15H [facility] Rx#: [id number] Oral 705 0 Output: Chest Tube Drainage 45 Pleural Catheter Left 45 Urine 1050 Other: Voiding Method Urinal Urinal Urinal # Voids 2 # Bowel Movements 1 ABP, PAP, CO, CI - Last Documented Arterial Blood Pressure 99/53 Pulmonary Artery Pressure 16/9 Cardiac Output 4.2 Cardiac Index 1.9 - Labs CBC & Chem 7: 07/23/21 04:07 07/23/21 04:07 Labs: Abnormal Lab Results - Last 24 Hours (Table) 07/22/21 07/22/21 07/23/21 Range/Units 16:26 20:27 02:21 WBC (3.8-10.6) k/uL RBC (4.30-5.90) m/uL Hgb (13.0-17.5) gm/dL Hct (39.0-53.0) % Neutrophils # (1.3-7.7) k/uL Sodium (137-145) mmol/L Glucose (74-99) mg/dL POC Glucose (mg/dL) 104 H 120 H 116 H (75-99) mg/dL Total Protein (6.3-8.2) g/dL Albumin (3.5-5.0) g/dL 07/23/21 07/23/21 07/23/21 Range/Units 04:07 04:07 06:23 WBC 13.3 H (3.8-10.6) k/uL RBC 2.96 L (4.30-5.90) m/uL Hgb 8.8 L (13.0-17.5) gm/dL Hct 28.2 L (39.0-53.0) % Neutrophils # 10.3 H (1.3-7.7) k/uL Sodium 134 L (137-145) mmol/L Glucose 126 H (74-99) mg/dL POC Glucose (mg/dL) 120 H (75-99) mg/dL Total Protein 5.2 L (6.3-8.2) g/dL Albumin 3.0 L (3.5-5.0) g/dL
[2021-07-23 11:59] LABS: Glucose,Whole Blood 107 mg/dL (75-99)
--- NOTE | 2021-07-23 12:31 | P.PN ---
Subjective Progress Note Date: 07/23/21 HISTORY OF PRESENT ILLNESS This is a 71-year-old gentleman with history of hypertension, hyperlipidemia, C AD and also aortic stenosis. Patient had aortic replacement with a tissue valve and also bypass surgery with YEE to the LAD and arterial conduit the OM branch. Patient is sitting up in the chair and moved to the cardiac stepdown unit. He seemed to be doing very well, denies complaints of chest discomfort. Vital signs are stable. Lungs appeared to be clear. Heart is regular. Overall patient is doing well. Increase activity as tolerated. PHYSICAL EXAMINATION GENERAL EXAM: Patient is alert and oriented and doesn't appear to be in any acute distress HEENT: Normocephalic. Normal reaction of pupils, equal size, normal range of extraocular motion. No erythema or exudates in the throat. NECK: No masses, no nuchal rigidity. CHEST: Postsurgical LUNGS: Equal air entry with no crackles or wheeze. HEART: S1 and S2 normal with no audible mumurs or gallops. Regular rhythm, femorals equal on both sides.. ABDOMEN: No hepatosplenomegaly, normal bowel sounds, no guarding or rigidity. SKIN: No rashes CENTRAL NERVOUS SYSTEM: No focal deficits. EXTREMITIES: No cyanosis, clubbing or edema. ASSESSMENT Coronary artery disease status post CABG Aortic stenosis status post aortic valve replacement Hypertension Hyperlipidemia PLAN Continue to increase activity Continue current cardiac medications Anticipate discharge home tomorrow, follow up with Dr. Steele Nurse practitioner note has been reviewed, I agree with documented findings and plan of care. Patient was seen and examined. Objective - Vital Signs Vital signs: Vital Signs Temp 98.7 F 07/23/21 08:25 Pulse 95 07/23/21 08:25 Resp 16 07/23/21 08:25 BP 94/57 07/23/21 08:25 Pulse Ox 96 07/23/21 08:25 FiO2 50 07/19/21 20:00 Intake & Output 07/22/21 07/23/21 07/23/21 18:59 06:59 18:59 Intake Total 980.338 Output Total 1095 Balance -114.662 Weight 104.5 kg Intake: IV 62 Lactated Ringers 1,000 ml 50 @ 20 mls/hr IV .Q24H [facility] Rx#:[id number] pressure bags 12 Intake, IV Titration 213.338 Amount Amiodarone 450 mg In 213.338 Dextrose 5% in Water 250 ml @ 0.5 MG/MIN 16.667 mls/hr IV .Q15H [facility] Rx#: [id number] Oral 705 Output: Chest Tube Drainage 45 Pleural Catheter Left 45 Urine 1050 Other: Voiding Method Urinal Urinal Urinal # Voids 2 # Bowel Movements 1 ABP, PAP, CO, CI - Last Documented Arterial Blood Pressure 99/53 Pulmonary Artery Pressure 16/9 Cardiac Output 4.2 Cardiac Index 1.9 - Labs CBC & Chem 7: 07/23/21 04:07 07/23/21 04:07 Labs: Abnormal Lab Results - Last 24 Hours (Table) 07/22/21 07/22/21 07/23/21 Range/Units 16:26 20:27 02:21 WBC (3.8-10.6) k/uL RBC (4.30-5.90) m/uL Hgb (13.0-17.5) gm/dL Hct (39.0-53.0) % Neutrophils # (1.3-7.7) k/uL Sodium (137-145) mmol/L Glucose (74-99) mg/dL POC Glucose (mg/dL) 104 H 120 H 116 H (75-99) mg/dL Total Protein (6.3-8.2) g/dL Albumin (3.5-5.0) g/dL 07/23/21 07/23/21 07/23/21 Range/Units 04:07 04:07 06:23 WBC 13.3 H (3.8-10.6) k/uL RBC 2.96 L (4.30-5.90) m/uL Hgb 8.8 L (13.0-17.5) gm/dL Hct 28.2 L (39.0-53.0) % Neutrophils # 10.3 H (1.3-7.7) k/uL Sodium 134 L (137-145) mmol/L Glucose 126 H (74-99) mg/dL POC Glucose (mg/dL) 120 H (75-99) mg/dL Total Protein 5.2 L (6.3-8.2) g/dL Albumin 3.0 L (3.5-5.0) g/dL
[2021-07-23] MEDS: TAMSULOSIN 0.4 MG CAP.ER.24H PO SCH (12:39)
[2021-07-23] MEDS: LINAGLIPTIN 5 MG TABLET PO SCH (12:39)
[2021-07-23] MEDS: amLODIPine 2.5 MG TAB PO SCH (12:39)
--- NOTE | 2021-07-23 13:31 | P.PN ---
Subjective Progress Note Date: 07/23/21 Principal diagnosis: Valvular heart disease. This is a 71-year-old male, who was seen in consultation, room 267. The patient is postop day #1, status post aortic valve replacement surgery for severe aortic stenosis, two-vessel bypass grafting, including YEE to LAD, and radial artery to obtuse marginal artery, clipping of a left atrial appendage, and intraoperative transesophageal echocardiogram. The patient was extubated about 5 hours and 15 minutes after leaving the operating room. Currently he is resting comfortably. He's on 3 L nasal cannula, Lactated Ringer's at 50 mL an hour, Cardizem 5 mg an hour, and insulin drip at 1.5 units an hour. He has no complaints. White count of 19.9, hemoglobin 12, hematocrit 38.1, and platelet count 168,000. Sodium 134, potassium 4, chlorides 106, CO2 24, BUN 14, and creatinine 0.54. Chest x-ray shows some patchy bibasilar infiltrates or atelectasis. The patient is seen today 07/21/2021 in follow-up in the intensive care unit. Postoperative day #2, status post aortic valve replacement for severe stenosis and coronary artery disease with two-vessel bypass grafting including a YEE to LAD and radial artery to the obtuse marginal branch. He is currently sitting up in a chair at bedside. Awake and alert in no acute distress. Doing quite well. Maintaining O2 saturations in the 90s on room air. Pulling greater than 1000 on the incentive spirometer. His lactated Ringer's at 30 MLS per hour. His chest x-ray revealing mild cardiomegaly and chronic changes of patchy left lung edema/infiltrates redemonstrated. No significant change. White count 16.6. Hemoglobin 9.8. Platelet count 120,000. Sodium 134. Potassium 4.2. BUN 13. Creatinine 0.61. Glucose 120. He did receive additional albumin this morning. He remains on bronchodilators. He did develop atrial fibrillation x-ray 10:30 this morning is now on amiodarone drip at 1 mg/m. The patient is seen today 07/22/2021 in follow-up in the intensive care unit. Postoperative day #3. He is currently sitting up in bed. Awake and alert in no acute distress. Maintaining good O2 saturations in the 90s on room air. No IV fluids. Chest x-ray reveals multifocal airspace opacities more so on the left. No evidence of pneumothorax. White count 15.4. Hemoglobin 8.8. Platelets 121. Sodium 134. Potassium 4.0. BUN 11. Creatinine 0.69. He is currently in sinus rhythm. Afebrile. Hemodynamically stable. Remains on DuoNeb inhalations, working well with the incentive spirometer. Progress note dated 07/23/2021. The patient is seen, in room 355. The patient was in the intensive care unit yesterday. He's postop day #4, status post aortic valve replacement, and two- vessel bypass grafting. The patient appears to be doing relatively well. He may go home tomorrow. Labs, x-rays, and medications are all reviewed. White count 13.3, hemoglobin 8.8, hematocrit 28.2, with a normal platelet count. Electrolytes are essentially normal save for mildly low sodium of 134. Glucose 126. Albumin is 3. Chest x-ray shows some post surgical changes, and some mild bibasilar atelectasis. Objective - Vital Signs Vital signs: Vital Signs Temp 97.8 F 07/23/21 12:35 Pulse 84 07/23/21 12:35 Resp 18 07/23/21 12:35 BP 98/63 07/23/21 12:35 Pulse Ox 97 07/23/21 12:35 FiO2 50 07/19/21 20:00 Intake & Output 07/22/21 07/23/21 07/23/21 18:59 06:59 18:59 Intake Total 980.338 118 Output Total 1095 Balance -114.662 118 Weight 104.5 kg Intake: IV 62 Lactated Ringers 1,000 ml 50 @ 20 mls/hr IV .Q24H [facility] Rx#:[id number] pressure bags 12 Intake, IV Titration 213.338 Amount Amiodarone 450 mg In 213.338 Dextrose 5% in Water 250 ml @ 0.5 MG/MIN 16.667 mls/hr IV .Q15H [facility] Rx#: [id number] Oral 705 118 Output: Chest Tube Drainage 45 Pleural Catheter Left 45 Urine 1050 Other: Voiding Method Urinal Urinal Urinal # Voids 2 # Bowel Movements 1 ABP, PAP, CO, CI - Last Documented Arterial Blood Pressure 99/53 Pulmonary Artery Pressure 16/9 Cardiac Output 4.2 Cardiac Index 1.9 - Exam No acute distress, oriented 3. HEENT examination is grossly unremarkable. Neck supple. Full range of motion. No adenopathy thyromegaly or neck vein distention. Cardiovascular examination reveals regular rhythm rate. S1-S2 normal. No S3 or S4. No discernible murmur noted. Heart rate 92 bpm. Lungs reveal clear breath sounds. Breath sounds are equal bilaterally. No adventitious lung sounds including wheezes rhonchi or crackles. Room air resting saturation is 97% Abdomen soft bowel sounds are heard. No masses or tenderness. Extremities are intact. No cyanosis clubbing or edema. Skin is without rash or lesion. Neurologic examination is brief but nonfocal. - Labs CBC & Chem 7: 07/23/21 04:07 07/23/21 04:07 Labs: Abnormal Lab Results - Last 24 Hours (Table) 07/22/21 07/22/21 07/23/21 Range/Units 16:26 20:27 02:21 WBC (3.8-10.6) k/uL RBC (4.30-5.90) m/uL Hgb (13.0-17.5) gm/dL Hct (39.0-53.0) % Neutrophils # (1.3-7.7) k/uL Sodium (137-145) mmol/L Glucose (74-99) mg/dL POC Glucose (mg/dL) 104 H 120 H 116 H (75-99) mg/dL Total Protein (6.3-8.2) g/dL Albumin (3.5-5.0) g/dL 07/23/21 07/23/21 07/23/21 Range/Units 04:07 04:07 06:23 WBC 13.3 H (3.8-10.6) k/uL RBC 2.96 L (4.30-5.90) m/uL Hgb 8.8 L (13.0-17.5) gm/dL Hct 28.2 L (39.0-53.0) % Neutrophils # 10.3 H (1.3-7.7) k/uL Sodium 134 L (137-145) mmol/L Glucose 126 H (74-99) mg/dL POC Glucose (mg/dL) 120 H (75-99) mg/dL Total Protein 5.2 L (6.3-8.2) g/dL Albumin 3.0 L (3.5-5.0) g/dL 07/23/21 Range/Units 11:57 WBC (3.8-10.6) k/uL RBC (4.30-5.90) m/uL Hgb (13.0-17.5) gm/dL Hct (39.0-53.0) % Neutrophils # (1.3-7.7) k/uL Sodium (137-145) mmol/L Glucose (74-99) mg/dL POC Glucose (mg/dL) 107 H (75-99) mg/dL Total Protein (6.3-8.2) g/dL Albumin (3.5-5.0) g/dL Assessment and Plan Assessment: Postop day #4, status post aortic valve replacement for severe aortic stenosis, and two-vessel bypass grafting, including YEE to LAD, and radial artery to OM, secondary to CAD, left atrial appendage ligation, and intraoperative transesophageal echocardiogram. Routine postoperative ventilator management. History of CAD. History of hypertension. History of severe aortic stenosis. History of hyperlipidemia. History of kidney stones. History of BPH. Plan: Plan dated 07/20/2021. The patient seems be doing relatively well. The patient has been weaned down to 3 L nasal O2. He is getting lactated Ringer's at 50 mL an hour, and insulin drip at 1.5 units an hour, and a Cardizem drip at 5 mg an hour. We will continue to follow. Labs, x-rays, and medications are reviewed. His overall prognosis remains guarded. We will continue to follow the patient and make recommendations where appropriate. The patient does not appear to have any substantial chronic lung disease. Plan dated July 2021. The patient's doing well. He's not receiving any supplemental oxygen or IV fluids. He's postop day number the patient may be discharged home possibly by tomorrow. He continues on hourly use of the incentive spirometer. We do recommend deep breathing, coughing, and clearing of secretions. Patient's overall prognosis remains guarded. Labs, x-rays, and medications are all revi ewed. We will continue to follow the patient and make recommendations where appropriate. Time with Patient: Less than 30
[2021-07-23 16:40] LABS: Glucose,Whole Blood 121 mg/dL (75-99)
[2021-07-23 19:11] LABS: Appearance,Urine Clear (Clear); Bilirubin,Urine Negative (Negative); Blood,Urine Moderate (Negative); Color,Urine Yellow; Glucose,Urine (UA) Negative (Negative); Ketones,Urine Negative (Negative); Leukocyte Esterase,Urine Negative (Negative); Mucus,Urine Occasional /hpf; Nitrite,Urine Negative (Negative); PH, Urine 6.5 (5.0-8.0); Protein,Urine Trace (Negative); RBC,Urine 19 /hpf (0-5); Specific Gravity,Urine 1.015 (1.001-1.035); WBC,Urine 3 /hpf (0-5)
[2021-07-23 20:41] LABS: Glucose,Whole Blood 120 mg/dL (75-99)
[2021-07-23] MEDS: SENNOSIDES-DOCUSATE SODIUM 1 EACH TAB PO SCH (21:07)
[2021-07-24 06:00] LABS: Glucose,Whole Blood 133 mg/dL (75-99)
[2021-07-24] MEDS: PANTOPRAZOLE 40 MG TABLET PO SCH (06:44)
[2021-07-24] MEDS: INSULIN ASPART (NovoLOG) 100 UNIT/ML VIAL SQ SCH ×2 (06:44→11:56)
[2021-07-24] MEDS: IPRATROPIUM-ALBUTEROL 3 ML NEB INHALATION SCH ×2 (07:44→11:12)
--- NOTE | 2021-07-24 08:36 | XR ---
EXAMINATION TYPE: XR chest 2V DATE OF EXAM: 07/24/2021 COMPARISON: X-ray dated 07/23/2021 HISTORY: Postoperative TECHNIQUE: Frontal and lateral views of the chest are obtained. FINDINGS: Prominent interstitial lung markings, nonspecific and could be age-related or due to mild pulmonary e vincent, stable. Left lower lung zone atelectasis, slightly more apparent today. No progressive pulmonar y consolidation otherwise. Bilateral minimal pleural effusions, stable. No pneumothorax. Unchanged cardiomediastinal silhouette, sternotomy wire sutures, cardiac valve prosthesis and bony thoracic cage. IMPRESSION: Minimal interval changes as described above.
--- NOTE | 2021-07-24 08:45 | P.PN ---
Subjective Progress Note Date: 07/24/21 HISTORY OF PRESENT ILLNESS This is a 71-year-old male will be newly established with Dr. Reeves with past medical history of kidney stones, benign prostatic hypertrophy, gastroesophageal reflux disease, hypothyroidism. Patient gives history that he has always been very active has been living in [place] and recently moved back to [place]. 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 He has noticed recently that he has had more fatigue with both of these activities and also experiencing some dyspnea with exertion. Patient gives history that he was sitting at a table ac ross from his and developed TIA like symptoms but did not seek treatment at that time. He talked to his neighbor and neighbor recommended that he see Dr. Steele. Patient has been established with Dr. Steele and underwent CORTEZ which revealed normal systolic function, trileaflet aortic valve with severe aortic stenosis, [id number] mitral regurgitation, [id number] tricuspid regurgitation. Cardiac catheterization revealed severe two-vessel coronary artery disease involving the left circumflex and LAD with recommendations for coronary artery bypass grafting to the LAD and OM and aortic valve replacement. Patient has been brought into the hospital by Dr. Dudley and is status post ao rtic valve replacement with bioprosthetic aortic valve and coronary artery bypass grafting 2 with left internal mammary artery, left anterior descending artery, radial artery of the aorta to the left obtuse marginal artery, clip ligation of the left atrial appendage. Patient is postop day #1. He has been successfully extubated and remains in the intensive care unit.. Repeat chest x- ray reveals WBC 19.9, hemoglobin 12, platelet count 168. Sodium 134, potassium 4.0, chloride 106, CO2 24, BUN 14, creatinine 0.54. Blood sugar 131. 6/3: Patient remains in the intensive care unit, sitting in a recliner at the bedside. He has been afebrile, heart rate running between 90-133 this morning. Blood pressure 101/40, pulse ox 92% on room air. WBC 16.6, hemoglobin 9.8, platelet count 120. Sodium 134, potassium 4.2, chloride 102, CO2 28, BUN 13 and creatinine 0.61. Capillary blood glucose run eden between 118 and 135. Patient is reaching 2000 mL on incentive spirometry. Duarte catheter was just removed and patient has not voided as of yet. Patient developed atrial fibrillation started on amiodarone drip. Repeat chest x-ray reveals mild cardiomegaly and chronic changes with patchy left lung edema and/or infiltrates. No significant change. 07/22: Patient is found sitting up in a chair eating lunch in the intensive care unit. Patient has no drips or chest tube in place. Dressing to the midline chest present clean and dry. Patient is reaching 2000 ML done on incentive spirometer. Patient has been walking with the intensive care unit. Plan for him to be transferred either tonight or tomorrow. With plans for discharge on Saturday. Blood sugars averaging 120s to 150s. We will decrease Levemir to 5 units. Patient does not have history of diabetes. Patient remains afebrile, heart rate 82, respirations 18, blood pressure 101/75 pulse ox 96% on room air. 07/23: Patient fell sitting up in the chair on . He states that he is feeling much better. Patient has been ambulatory on the unit. Continues to reach 2000 ML's on the incentive spirometer. Plan is for discharge on Saturday. Patient does have lower extremity edema. Blood sugars are averaging 80s to 120s. We will stop the Levemir and start the patient on tradjenta. However the plan is for him to go home on Jardience. Patient remains afebrile, heart rate 95, respirations 16, blood pressure 94/57, pulse ox 96% on room air. 07/24: Patient denies any new complaints today. Blood sugar has been controlled running between 117 133. We will provide patient with these prescription for chart he has. Patient made aware that if he has any trouble with insurance coverage of medication, to contact the office and samples will be provided until insurance authorization is obtained. Patient is expecting discharge home today. He is afebrile, heart rate 86, blood pressure 112/70, pulse ox 90% on room air. WBC 12.3, hemoglobin 9.3, platelet count 243. Electrolytes are normal. Creatinine 0.76. REVIEW OF SYSTEMS Constitutional: No fever, no chills, no night sweats. No weight change. No weakness, reports fatigue no lethargy. No daytime sleepiness. EENT: No headache. No blurred vision or double vision, no loss of vision. No loss of Hearing, no ringing in the ears, no dizziness. No nasal drainage or congestion. No epistaxis. No sore throat. Lungs: No shortness of breath, cough, no sputum production. No wheezing. Cardiovascular: Generalized chest discomfort, no lower extremity edema. No palpitations. No paroxysmal nocturnal dyspnea. No orthopnea. No lightheadedness or dizziness. No syncopal episodes. Abdominal: No abdominal pain. No nausea, vomiting. No diarrhea. No constipation. No bloody or tarry stools. No loss of appetite. Genitourinary: No dysuria, increased frequency, urgency. No urinary retention. Musculoskeletal: No myalgias. No muscle weakness, no gait dysfunction, no frequent falls. No back pain. No neck pain. Integumentary: No wounds, no lesions. No rash or pruritus. No unusual bruising. No change in hair or nails. Neurologic: No aphasia. No facial droop. No change in mentation. No head injury. No headache. No paralysis. No paresthesia. Psychiatric: No depression. No anxiety. No mood swings. Endocrine: No abnormal blood sugars. No weight change. . PHYSICAL EXAMINATION Gen: This is a 71-year-old male. He is resting in chair and appears to be comfortable at rest HEENT: Head is atraumatic, normocephalic. Pupils equal, round. Sclerae is an icteric. NECK: Supple. No JVD. No lymphadenopathy. No thyromegaly. LUNGS: Clear to auscultation. No wheezes or rhonchi. No intercostal retractions. HEART: Irregular rate and rhythm. No murmur. body bumper atrial fibrillation. ABDOMEN: Soft. Bowel sounds are present. No masses. No tenderness. EXTREMITIES: Bilateral 2+ pedal edema. No calf tenderness. NEUROLOGICAL: Patient is awake, alert and oriented x3. Cranial nerves 2 through 12 are grossly intact. ASSESSMENT AND PLAN 1. Coronary artery disease status post coronary artery bypass grafting 2 with left internal mammary artery, left anterior descending artery, radial artery of the aorta to the left obtuse marginal artery, clip ligation of the left atrial appendage, 07/19. Continue current management per cardiothoracic team, senior net developer architect. Continue on tradjenta. For discharge he will be changed to jardiance. 2. Severe aortic stenosis status post aortic valve replacement with bioprosthetic aortic valve. Continue current management per cardiothoracic team, senior net developer architect. 3. Benign prostatic hypertrophy. Monitor for urinary retention. Patient started on Flomax 0.4 mg daily. 4. History of kidney stones, stable. No complaints. 5. Remote history of tobacco use. 6. Generalized osteoarthritis. 7. GI prophylaxis. Protonix. 8. DVT prophylaxis. Heparin subcu. 9. Possible history of TIA symptoms. Patient did not seek treatment at the time. 10. History of hypothyroidism, gastroesophageal reflux disease resolved with weight loss. 11. Paroxysmal atrial fibrillation, not unexpected following surgery. Patient is on amiodarone and lopressor. 12. Hyperglycemia. Prescription for Jardiance 10 mg oral daily has been sent to his pharmacy. If patient has any difficulty with insurancy coverage, he is to call our office. DISCHARGE PLAN Home with [facility] Impression and plan of care have been directed as dictated by the signing physician. Steph Santiago nurse practitioner acting as scribe for signing physician. Objective - Vital Signs Vital signs: Vital Signs Temp 98.6 F 07/24/21 04:00 Pulse 86 07/24/21 07:44 Resp 18 07/24/21 04:00 BP 112/70 07/24/21 04:00 Pulse Ox 98 07/24/21 07:44 FiO2 50 07/19/21 20:00 Intake & Output 07/23/21 07/24/21 07/24/21 18:59 06:59 18:59 Intake Total 698 Output Total 200 Balance 698 -200 Weight 103.1 kg Intake: Intake, IV Titration 100 Amount Magnesium Sulfate-D5w Pmx 100 1 gm In Dextrose/Water 1 100ml.bag @ 100 mls/hr IVPB Q1H [facility] Rx#: [id number] Oral 598 Output: Urine 200 Other: Voiding Method Urinal Toilet Urinal # Voids 2 1 ABP, PAP, CO, CI - Last Documented Arterial Blood Pressure 99/53 Pulmonary Artery Pressure 16/9 Cardiac Output 4.2 Cardiac Index 1.9 - Labs CBC & Chem 7: 07/24/21 08:26 07/24/21 08:26 Labs: Abnormal Lab Results - Last 24 Hours (Table) 07/23/21 07/23/21 07/23/21 Range/Units 11:57 16:38 20:40 POC Glucose (mg/dL) 107 H 121 H 120 H (75-99) mg/dL Urine Protein (Negative) Urine Blood (Negative) Urine RBC (0-5) /hpf Urine Mucus (None) /hpf 07/23/21 07/24/21 Range/Units Unknown 05:59 POC Glucose (mg/dL) 133 H (75-99) mg/dL Urine Protein Trace H (Negative) Urine Blood Moderate H (Negative) Urine RBC 19 H (0-5) /hpf Urine Mucus Occasional H (None) /hpf
--- NOTE | 2021-07-24 09:09 | P.PN ---
Subjective Progress Note Date: 07/24/21 Principal diagnosis: Severe aortic valve stenosis, two-vessel coronary artery disease. Previous medical history of questionable presyncopal event versus TIA recently, previous tobacco dependence, osteoarthritis, enlarged prostate. Remains unvaccinated against Covid POD #5 aortic valve replacement with a #25 mm Urias Inspiris bioprosthetic aortic valve, coronary artery bypass grafting 2 with the left internal mammary artery to the left anterior descending artery, left radial artery off the aorta to the first obtuse marginal artery, endoscopic left radial artery harvest, clip ligation of the left atrial appendage with a 35 mm AtriClip, intraoperative transesophageal echocardiogram Paroxysmal atrial fibrillation, known common occurrence after cardiac surgery The patient was seen and examined sitting up in a recliner in the cardiac stepdown unit in no acute distress. States pain is controlled with current medication regimen, denies shortness of breath. He has ambulated in the hallway without difficulty. He is hoping to go home today. Remains in sinus rhythm, hemodynamically stable. No other new concerns. Objective - Vital Signs Vital signs: Vital Signs Temp 98.6 F 07/24/21 04:00 Pulse 86 07/24/21 07:44 Resp 18 07/24/21 04:00 BP 112/70 07/24/21 04:00 Pulse Ox 98 07/24/21 07:44 FiO2 50 07/19/21 20:00 Intake & Output 07/23/21 07/24/21 07/24/21 18:59 06:59 18:59 Intake Total 698 660 Output Total 200 Balance 698 -200 660 Weight 103.1 kg Intake: Intake, IV Titration 100 Amount Magnesium Sulfate-D5w Pmx 100 1 gm In Dextrose/Water 1 100ml.bag @ 100 mls/hr IVPB Q1H [facility] Rx#: [id number] Oral 598 660 Output: Urine 200 Other: Voiding Method Urinal Toilet Urinal # Voids 2 1 1 ABP, PAP, CO, CI - Last Documented Arterial Blood Pressure 99/53 Pulmonary Artery Pressure 16/9 Cardiac Output 4.2 Cardiac Index 1.9 - Exam CONSTITUTIONAL: Appears comfortable, cooperative, no acute distress RESPIRATORY: Lungs sounds diminished bilaterally. Respirations even, nonlabored. Currently on room air with oxygen saturation 98%. Able to achieve 2000 mL on incentive spirometry. Strong nonproductive cough. CARDIOVASCULAR: S1, S2 present. Regular rate and rhythm, sinus rhythm on tel emetry. Sternum stable. Palpable peripheral pulses bilaterally. No edema present. No calf pain or tenderness noted. Heart hugger in place with patient demonstrating appropriate use. Antiembolism stockings, SCDs present. GASTROINTESTINAL: Abdomen soft, nontender, nondistended. Active bowel sounds present 4 quadrants. Tolerating diet. Positive bowel movement GENITOURINARY: Continues to void INTEGUMENTARY: Skin is warm and dry with evidence of good perfusion. Anterior chest incision well approximated NEUROLOGIC: Cranial nerves II through XII intact MUSKULOSKELETAL: Able to move all extremities, strength equal bilaterally, gait normal PSYCHIATRIC: Alert and oriented to person place and time, appropriate affect, intact judgment and insight INVASIVE LINES AND TUBES: A/V epicardial pacemaker wires present, grounded - Allied health notes Allied health notes reviewed: nursing - Labs CBC & Chem 7: 07/24/21 08:26 07/24/21 08:26 Labs: Abnormal Lab Results - Last 24 Hours (Table) 07/23/21 07/23/21 07/23/21 Range/Units 11:57 16:38 20:40 POC Glucose (mg/dL) 107 H 121 H 120 H (75-99) mg/dL Urine Protein (Negative) Urine Blood (Negative) Urine RBC (0-5) /hpf Urine Mucus (None) /hpf 07/23/21 07/24/21 Range/Units Unknown 05:59 POC Glucose (mg/dL) 133 H (75-99) mg/dL Urine Protein Trace H (Negative) Urine Blood Moderate H (Negative) Urine RBC 19 H (0-5) /hpf Urine Mucus Occasional H (None) /hpf - Imaging and Cardiology Chest x-ray: report reviewed, image reviewed Assessment and Plan Assessment: 1. Severe aortic valve stenosis, status post aortic valve replacement 2. Two-vessel coronary artery disease, status post 2 vessel CABG 3. History of questionable presyncopal event versus TIA recently 4. Previous tobacco dependence, preoperative FEV1 96% of predicted 5. Osteoarthritis 6. Enlarged prostate 7. Remains unvaccinated against Covid 8. Paroxysmal atrial fibrillation, status post left atrial appendage ligation, currently in sinus rhythm Plan: 1. Continue aspirin, statin, Plavix, beta jalen therapy. Will increase beta jalen therapy as tolerated. 2. Continue calcium channel jalen for radial artery spasm prophylaxis. Continue amiodarone for A. fib prophylaxis, no need for anticoagulation 3. Encourage incentive spirometry use 10 times every hour while awake. Bronchodilators per pulmonology 4. Increase activity as tolerated, PT/OT/cardiac rehab and following 5. Will monitor daily labs and x-rays. Electrolyte replacement per protocol 6. GI/DVT prophylaxis 7. Pain control per current medication regimen 8. Insulin management per primary care. Patient is not diabetic, preoperative hemoglobin A1c 5.3% 9. Strict accurate intake and output. Continue Flomax 10. Daily weights 11. Epicardial pacer wires discontinued without incident. Patient to remain on bedrest for 1 hour post wire removal 12. Discharge planning in progress. Anticipate discharge home with home care today 13. More recommendations to follow
[2021-07-24 09:27] LABS: HCT 28.5 % (39.0-53.0); HGB 9.3 gm/dL (13.0-17.5); MCH 31.1 pg (25.0-35.0); MCHC 32.5 g/dL (31.0-37.0); MCV 95.7 fL (80.0-100.0); Mean Platelet Volume 7.5; Platelet Count 241 k/uL (150-450); RBC 2.98 m/uL (4.30-5.90); RDW 13.2 % (11.5-15.5); WBC 12.3 k/uL (3.8-10.6)
[2021-07-24 09:37] LABS: African American GFR (CKD) >90 (>60 ml/min/1.73 sqM); Anion Gap 7 mmol/L; Blood Urea Nitrogen 12 mg/dL (9-20); Calcium 8.5 mg/dL (8.4-10.2); Carbon Dioxide 27 mmol/L (22-30); Chloride 104 mmol/L (98-107); Glucose 117 mg/dL (74-99); Magnesium 2.3 mg/dL (1.6-2.3); Non-African American GFR(CKD) >90 (>60 ml/min/1.73 sqM); Sodium 138 mmol/L (137-145)
[2021-07-24] MEDS: ATORVASTATIN 80 MG TAB PO SCH (09:40)
[2021-07-24] MEDS: FONDAPARINUX 2.5 MG/0.5 ML SYRINGE SQ SCH (09:40)
[2021-07-24] MEDS: AMIODARONE 200 MG TAB PO SCH (09:40)
[2021-07-24] MEDS: ASPIRIN 325 MG TAB PO SCH (09:40)
[2021-07-24] MEDS: LINAGLIPTIN 5 MG TABLET PO SCH (09:40)
[2021-07-24] MEDS: CLOPIDOGREL 75 MG TAB PO SCH (09:41)
[2021-07-24] MEDS: ACETAMINOPHEN TAB 325 MG TAB PO PRN (09:41)
[2021-07-24] MEDS: METOPROLOL TARTRATE 25 MG TAB PO SCH (09:42)
--- NOTE | 2021-07-24 10:57 | P.PN ---
Subjective Progress Note Date: 07/24/21 This is a 71-year-old male, who was seen in consultation, room 267. The patient is postop day #1, status post aortic valve replacement surgery for severe aortic stenosis, two-vessel bypass grafting, including YEE to LAD, and radial artery to obtuse marginal artery, clipping of a left atrial appendage, and intraoperative transesophageal echocardiogram. The patient was extubated about 5 hours and 15 minutes after leaving the operating room. Currently he is resting comfortably. He's on 3 L nasal cannula, Lactated Ringer's at 50 mL an hour, Cardizem 5 mg an hour, and insulin drip at 1.5 units an hour. He has no complaints. White count of 19.9, hemoglobin 12, hematocrit 38.1, and platelet count 168,000. Sodium 134, potassium 4, chlorides 106, CO2 24, BUN 14, and creatinine 0.54. Chest x-ray shows some patchy bibasilar infiltrates or atelectasis. The patient is seen today 07/21/2021 in follow-up in the intensive care unit. Postoperative day #2, status post aortic valve replacement for severe stenosis and coronary artery disease with two-vessel bypass grafting including a YEE to LAD and radial artery to the obtuse marginal branch. He is currently sitting up in a chair at bedside. Awake and alert in no acute distress. Doing quite well. Maintaining O2 saturations in the 90s on room air. Pulling greater than 1000 on the incentive spirometer. His lactated Ringer's at 30 MLS per hour. His chest x-ray revealing mild cardiomegaly and chronic changes of patchy left lung edema/infiltrates redemonstrated. No significant change. White count 16.6. Hemoglobin 9.8. Platelet count 120,000. Sodium 134. Potassium 4.2. BUN 13. Creatinine 0.61. Glucose 120. He did receive additional albumin this morning. He remains on bronchodilators. He did develop atrial fibrillation x-ray 10:30 this morning is now on amiodarone drip at 1 mg/m. The patient is seen today 07/22/2021 in follow-up in the intensive care unit. Postoperative day #3. He is currently sitting up in bed. Awake and alert in no acute distress. Maintaining good O2 saturations in the 90s on room air. No IV fluids. Chest x-ray reveals multifocal airspace opacities more so on the left. No evidence of pneumothorax. White count 15.4. Hemoglobin 8.8. Platelets 121. Sodium 134. Potassium 4.0. BUN 11. Creatinine 0.69. He is currently in sinus rhythm. Afebrile. Hemodynamically stable. Remains on DuoNeb inhalations, working well with the incentive spirometer. Progress note dated 07/23/2021. The patient is seen, in room 355. The patient was in the intensive care unit yesterday. He's postop day #4, status post aortic valve replacement, and two- vessel bypass grafting. The patient appears to be doing relatively well. He may go home tomorrow. Labs, x-rays, and medications are all reviewed. White count 13.3, hemoglobin 8.8, hematocrit 28.2, with a normal platelet count. Electrolytes are essentially normal save for mildly low sodium of 134. Glucose 126. Albumin is 3. Chest x-ray shows some post surgical changes, and some mild bibasilar atelectasis. 07/24/2021, the patient is postop day #5 following an aortic valve replacement two-vessel bypass surgery. Doing extremely well on room air oxygen. Chest x- ray showing some atelectatic changes in lung bases. Using incentive spirometer. Hemoglobin is at 9.3. He has no specific complaints and the tentative plan is to discharge this patient home today. He is ambulating. No nausea. No vomiting. Had a bowel movement. Surgical wound sites of dry clean and intact. Objective - Vital Signs Vital signs: Vital Signs Temp 98.3 F 07/24/21 09:15 Pulse 99 07/24/21 09:15 Resp 17 07/24/21 09:15 BP 124/79 07/24/21 09:15 Pulse Ox 97 07/24/21 09:15 FiO2 50 07/19/21 20:00 Intake & Output 07/23/21 07/24/21 07/24/21 18:59 06:59 18:59 Intake Total 698 660 Output Total 200 Balance 698 -200 660 Weight 103.1 kg Intake: Intake, IV Titration 100 Amount Magnesium Sulfate-D5w Pmx 100 1 gm In Dextrose/Water 1 100ml.bag @ 100 mls/hr IVPB Q1H [facility] Rx#: [id number] Oral 598 660 Output: Urine 200 Other: Voiding Method Urinal Toilet Toilet Urinal Urinal # Voids 2 1 1 ABP, PAP, CO, CI - Last Documented Arterial Blood Pressure 99/53 Pulmonary Artery Pressure 16/9 Cardiac Output 4.2 Cardiac Index 1.9 - Exam No acute distress, oriented 3. HEENT examination is grossly unremarkable. Neck supple. Full range of motion. No adenopathy thyromegaly or neck vein distention. Cardiovascular examination reveals regular rhythm rate. S1-S2 normal. No S3 or S4. No discernible murmur noted. Heart rate 92 bpm. Lungs reveal clear breath sounds. Breath sounds are equal bilaterally. No adventitious lung sounds including wheezes rhonchi or crackles. Room air resting saturation is 97% Abdomen soft bowel sounds are heard. No masses or tenderness. Extremities are intact. No cyanosis clubbing or edema. Skin is without rash or lesion. Neurologic examination is brief but nonfocal. - Labs CBC & Chem 7: 07/24/21 08:26 07/24/21 08:26 Labs: Abnormal Lab Results - Last 24 Hours (Table) 07/23/21 07/23/21 07/23/21 Range/Units 11:57 16:38 20:40 WBC (3.8-10.6) k/uL RBC (4.30-5.90) m/uL Hgb (13.0-17.5) gm/dL Hct (39.0-53.0) % Glucose (74-99) mg/dL POC Glucose (mg/dL) 107 H 121 H 120 H (75-99) mg/dL Urine Protein (Negative) Urine Blood (Negative) Urine RBC (0-5) /hpf Urine Mucus (None) /hpf 07/23/21 07/24/21 07/24/21 Range/Units Unknown 05:59 08:26 WBC 12.3 H (3.8-10.6) k/uL RBC 2.98 L (4.30-5.90) m/uL Hgb 9.3 L (13.0-17.5) gm/dL Hct 28.5 L (39.0-53.0) % Glucose (74-99) mg/dL POC Glucose (mg/dL) 133 H (75-99) mg/dL Urine Protein Trace H (Negative) Urine Blood Moderate H (Negative) Urine RBC 19 H (0-5) /hpf Urine Mucus Occasional H (None) /hpf 07/24/21 Range/Units 08:26 WBC (3.8-10.6) k/uL RBC (4.30-5.90) m/uL Hgb (13.0-17.5) gm/dL Hct (39.0-53.0) % Glucose 117 H (74-99) mg/dL POC Glucose (mg/dL) (75-99) mg/dL Urine Protein (Negative) Urine Blood (Negative) Urine RBC (0-5) /hpf Urine Mucus (None) /hpf Assessment and Plan Plan: Postop day 5, status post aortic valve replacement for severe aortic stenosis, and two-vessel bypass grafting, including YEE to LAD, and radial artery to OM, secondary to CAD, left atrial appendage ligation, and intraoperative transesophageal echocardiogram. Routine postoperative ventilator management. History of CAD. History of hypertension. History of severe aortic stenosis. History of hyperlipidemia. History of kidney stones. History of BPH. Plan The patient has recovered nicely from his surgery. Overall condition is stable and the patient is cleared to go home from the pulmonary standpoint. Chest x- ray is showing some postsurgical changes and some atelectatic changes in lung bases. Surgical wound site is dry clean and intact. Hemodynamically stable. No active issues for now. Will follow up this patient in the office in a few weeks time.
[2021-07-24 11:41] LABS: Glucose,Whole Blood 104 mg/dL (75-99)
--- NOTE | 2021-07-24 11:43 | P.PN ---
Subjective This is a 71 year old male with a past medical history of severe aortic stenosis, TIA vs syncopal episode recently, dyslipidemia, prior tobacco use. He follows with Dr. Steele. Cardiology following the patient status post aortic valve replacement and 2 vessel CABG on 07/19/2021. Patient seen and examined at bedside, 3 S. cardiac stepdown unit. No acute distress. He is alert and oriented x3. Denies any shortness of breath or chest pain. Vital signs are stable. He is maintaining sinus mechanism with heart rates in 80s90s. Hes currently maintained on amiodarone 400 mg twice a day, amlodipine 2.5 mg daily, atorvastatin 80 mg daily, aspirin 325 mg daily, Plavix 75 mg daily, metoprolol titrate 25 mg TID Labs: WBC 12.3, hemoglobin 9.3, platelets 241, sodium 138, potassium 4.0, BUN 12, serum creatinine 0.7, magnesium 2.3 GENERAL: Well-appearing, well-nourished and in no acute distress. NECK: Supple without JVD or thyromegaly. LUNGS: Breath sounds diminished to auscultation bilaterally. Respiration equal and unlabored. No wheezes, rales or rhonchi. HEART: Regular rate and rhythm without murmurs, rubs or gallops. S1 and S2 heard. EXTREMITIES: Normal range of motion, no edema. No clubbing or cyanosis. Peripheral pulses intact. ASSESSMENT Severe aortic stenosis s/p Aortic valve replacement on 07/19 Coronary artery disease s/p 2 vessel CABG on 07/19 History of syncope vs TIA recently Former tobacco use Paroxysmal atrial fibrillation post op, status post left atrial appendage ligation, maintaining sinus mechanism PLAN Continue aspirin, statin, Plavix, beta jalen Currently on amiodarone 400mg BID Encourage incentive spirometry use 10 times every hour while awake Increase activity as tolerated Postoperative management per CT surgery Close follow up outpatient with Dr. Steele We will continue to follow patient while in the hospital. Nurse Practitioner note has been reviewed, I agree with a documented findings and plan of care. Patient was seen and examined. Objective - Vital Signs Vital signs: Vital Signs Temp 98.3 F 07/24/21 09:15 Pulse 99 07/24/21 09:15 Resp 17 07/24/21 09:15 BP 124/79 07/24/21 09:15 Pulse Ox 97 07/24/21 09:15 FiO2 50 07/19/21 20:00 Intake & Output 07/23/21 07/24/21 07/24/21 18:59 06:59 18:59 Intake Total 698 660 Output Total 200 Balance 698 -200 660 Weight 103.1 kg Intake: Intake, IV Titration 100 Amount Magnesium Sulfate-D5w Pmx 100 1 gm In Dextrose/Water 1 100ml.bag @ 100 mls/hr IVPB Q1H [facility] Rx#: [id number] Oral 598 660 Output: Urine 200 Other: Voiding Method Urinal Toilet Toilet Urinal Urinal # Voids 2 1 1 ABP, PAP, CO, CI - Last Documented Arterial Blood Pressure 99/53 Pulmonary Artery Pressure 16/9 Cardiac Output 4.2 Cardiac Index 1.9 - Labs CBC & Chem 7: 07/24/21 08:26 07/24/21 08:26 Labs: Abnormal Lab Results - Last 24 Hours (Table) 07/23/21 07/23/21 07/23/21 Range/Units 11:57 16:38 20:40 WBC (3.8-10.6) k/uL RBC (4.30-5.90) m/uL Hgb (13.0-17.5) gm/dL Hct (39.0-53.0) % Glucose (74-99) mg/dL POC Glucose (mg/dL) 107 H 121 H 120 H (75-99) mg/dL Urine Protein (Negative) Urine Blood (Negative) Urine RBC (0-5) /hpf Urine Mucus (None) /hpf 07/23/21 07/24/21 07/24/21 Range/Units Unknown 05:59 08:26 WBC 12.3 H (3.8-10.6) k/uL RBC 2.98 L (4.30-5.90) m/uL Hgb 9.3 L (13.0-17.5) gm/dL Hct 28.5 L (39.0-53.0) % Glucose (74-99) mg/dL POC Glucose (mg/dL) 133 H (75-99) mg/dL Urine Protein Trace H (Negative) Urine Blood Moderate H (Negative) Urine RBC 19 H (0-5) /hpf Urine Mucus Occasional H (None) /hpf 07/24/21 Range/Units 08:26 WBC (3.8-10.6) k/uL RBC (4.30-5.90) m/uL Hgb (13.0-17.5) gm/dL Hct (39.0-53.0) % Glucose 117 H (74-99) mg/dL POC Glucose (mg/dL) (75-99) mg/dL Urine Protein (Negative) Urine Blood (Negative) Urine RBC (0-5) /hpf Urine Mucus (None) /hpf
[2021-07-24] MEDS: TAMSULOSIN 0.4 MG CAP.ER.24H PO SCH (12:11)
[2021-07-24] MEDS: amLODIPine 2.5 MG TAB PO SCH (12:11)
[2021-07-24 13:05] VITALS: BP 107/68; PULSE 97; RESP 18; TEMP 97.9
--- NOTE | 2021-07-24 13:46 | P.DS ---
Providers Date of admission: 07/19/21 05:40 Expected date of discharge: 07/24/21 Attending physician: Ja Dudley Consults: 07/19/21 14:47 Consult Physician Routine Consulting Provider: Jean Quintanilla Consult Reason/Comments: Telephone Sales Representative Consult: post cardiac surgery Do you want consulting provider notified?: Yes Consult Physician Routine Consulting Provider: Merna Sykes Consult Reason/Comments: Installation Specialist Consult: post cardiac surgery Do you want consulting provider notified?: Yes 07/20/21 07:37 Consult Physician Routine Consulting Provider: Hilario Reeves Consult Reason/Comments: med mgmt Do you want consulting provider notified?: Yes Primary care physician: Hilario Leandro [facility] Course: FINAL DIAGNOSIS: 1. Severe aortic valve stenosis 2. Two-vessel coronary artery disease 3. History of questionable recent presyncopal event versus TIA 4. Previous tobacco dependence, preoperative FEV1 96% of predicted 5. Osteoarthritis 6. Enlarged prostate 7. Remains unvaccinated against Covid 8. Paroxysmal atrial fibrillation PRINCIPAL PROCEDURE: 1. Aortic valve replacement with a #25 mm Urias Inspiris bioprosthetic aortic valve 2. Coronary artery bypass grafting 2 with the left internal mammary artery to the left anterior descending artery, left radial artery off the aorta to the first obtuse marginal artery 3. Endoscopic left radial artery harvest 4. Clip ligation of the left atrial appendage with a 35 mm AtriClip 5. Intraoperative transesophageal echocardiogram HISTORY OF PRESENT ILLNESS: This is a 71-year-old gentleman who began experiencing dyspnea with exertion and decrease in his activities. 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 Due to his symptoms he talked with a neighbor who recommended he follow up with Dr. Steele from [facility]. He underwent CORTEZ revealing severe aortic stenosis, normal systolic function, and mild to moderate mitral and tricuspid regurgitation. In addition he underwent cardiac catheterization revealing severe 2 vessel coronary artery disease. The patient was in the process of establishing primary care with Dr. Reeves. He was referred to Dr. Dudley from cardiothoracic surgery. He was recommended to undergo aortic valve replacement and coronary artery bypass surgery. The usual perioperative course was discussed in detail with the patient and his family, all risks and benefits were explained, all questions were answered, and consent was obtained to proceed with surgery. The patient was scheduled for surgery at the earliest possible date after obtaining dental clearance. HOSPITAL COURSE: The patient was brought to the hospital on 07/19/21, taken to the preoperative area, prepared in the usual fashion, and subsequently taken to the operating room where Dr. Dudley performed aortic valve replacement and two-vessel CABG. Upon completion of surgery the patient was transferred to the cardiovascular intensive care unit where he was recovered and monitored hemodynamically. He was extubated, all lines, tubes, and drips were discontinued when appropriate, and he was transferred to [facility] cardiac stepdown unit for further monitoring and rehabilitation. He did have a short episode of paroxysmal atrial fibrillation which was successfully treated with amiodarone. His oxygen was titrated down, he continued to work with physical and occupational therapy, he was tolerating oral diet, his pain was controlled, and he was ready to be discharged to home with [facility] on postoperative day #5. He received written and verbal instruction regarding his medications, activity restrictions, signs and symptoms requiring physician notification, and follow-up appointments. Patient Condition at Discharge: Stable Plan - Discharge Summary Discharge Rx Participant: Yes New Discharge Prescriptions: New Amiodarone [Cordarone] 400 mg PO BID #40 tab Pantoprazole [Protonix] 40 mg PO AC-BRKFST #30 tab Sennosides-Docusate Sodium [Senokot-S] 2 each PO HS PRN tab PRN Reason: Constipation Empagliflozin [Jardiance] 10 mg PO DAILY #30 tablet Metoprolol Tartrate [Lopressor] 25 mg PO TID #90 tab amLODIPine [Norvasc] 2.5 mg PO DAILY@1200 #30 tab Clopidogrel [Plavix] 75 mg PO DAILY #30 tab Acetaminophen Tab [Tylenol] 650 mg PO Q4HR PRN #120 tab PRN Reason: Fever And/ Or Pain Continue Tamsulosin [Flomax] 0.4 mg PO 1200 Aspirin [Adult Low Dose Aspirin EC] 81 mg PO W/SUPPER Atorvastatin [Lipitor] 80 mg PO DAILY Discontinued Metoprolol Succinate (ER) [Toprol Xl] 25 mg PO DAILY Mupirocin [Mupirocin 2%] 1 applic NASAL BID #1 tub Discharge Medication List Aspirin [Adult Low Dose Aspirin EC] 81 mg PO W/SUPPER 07/06/21 [History] Tamsulosin [Flomax] 0.4 mg PO 1200 07/06/21 [History] Atorvastatin [Lipitor] 80 mg PO DAILY 07/18/21 [History] Acetaminophen Tab [Tylenol] 650 mg PO Q4HR PRN #120 tab 07/24/21 [Rx] Amiodarone [Cordarone] 400 mg PO BID #40 tab 07/24/21 [Rx] Clopidogrel [Plavix] 75 mg PO DAILY #30 tab 07/24/21 [Rx] Empagliflozin [Jardiance] 10 mg PO DAILY #30 tablet 07/24/21 [Rx] Metoprolol Tartrate [Lopressor] 25 mg PO TID #90 tab 07/24/21 [Rx] Pantoprazole [Protonix] 40 mg PO AC-BRKFST #30 tab 07/24/21 [Rx] Sennosides-Docusate Sodium [Senokot-S] 2 each PO HS PRN tab 07/24/21 [Rx] amLODIPine [Norvasc] 2.5 mg PO DAILY@1200 #30 tab 07/24/21 [Rx] Follow up Appointment(s)/Referral(s): Kavitha Bonner NPC [Nurse Practitioner] - 07/28/21 10:30 am (You will be seen in the surgeon's office behind the hospital in [facility], [address]. Office phone number is ) [facility] [[facility] - 1-2 Days ([facility] will contact you to arrange a visit; should be seen the day after discharge then 2-3 times per week for 4 weeks) Anup Steele MD [STAFF PHYSICIAN] - 08/10/21 4:30 pm Hilario Reeves MD [Primary Care Provider] - 2 Weeks (Must call office to set up ap pointment through new patient portal process. Please call as soon as possible) Jean Quintanilla DO [Doctor of Osteopathic Medicine] - 08/17/21 10:15 am Ja Dudley MD [STAFF PHYSICIAN] - 4 Weeks (Gerda from the office will call with appointment ) Ambulatory/Diagnostic Orders: Complete Blood Count w/diff [LAB.AMB] Time Frame: 3 Days, Location: None Selected Comprehensive Metabolic Panel [LAB.AMB] Time Frame: 3 Days, Location: None Selected Activity/Diet/Wound Care/Special Instructions: DISCHARGE INSTRUCTIONS: 1. No driving for 4 weeks, or until physician gives their ok. 2. The patient should sleep in their own bed, no medical bed needed. 3. Stairs are not an issue. If the bedroom is upstairs, it is advised that the patient go up at night and down in the morning for the first week. Go slowly, using handrail and take 1 step at a time. 4. MARK hose are to be worn for 30 days or until physician discontinues. 5. Heart hugger is to be worn 100% of the time until physician discontinues.(except when showering) 6. No lifting, pushing, or pulling more than 10 pounds for 12 weeks. The physician will advise of any restriction changes. 7. The patient is expected to continue the prescribed walking program. 8. Continue pain control per as needed orders. 9. Continue with incentive spirometry and splinting/heart hugger until othe rwise directed by the physician. 10. Must shower daily using liquid antibacterial soap and a separate white washcloth for each individual incision. 11. Routine sternal incision care. No powders, lotions, ointments on incisions. No dressings are necessary on incisions unless they are draining. Dermabond tape is to remain on sternal incision until surgeon follow-up. 12. Please call surgeon/SHANK CUTTER for temp greater than 101 F or purulent drainage from incisions. 13. You should weigh yourself daily, record and bring log with you to follow up appointments. 14. All prescriptions given by surgeon for 30 days. Refills need to be filled through net making supervisor/primary care physician. 15. A Red armband has been placed on the patient. It should be worn for 30 days post surgery and will be removed by the cardiac surgeons. If an ER visit is necessary, please make sure the number on the Red armband is called. 16. [facility] have been [facility] HOME HEALTH SERVICES TO PROVIDE: RN SKILLED HOME CARE SERVICES FOR POST-OP SURGICAL PATIENTS WITH THE FOLLOWING: Coronary Artery Bypass Surgery (CABG), Mitral Valve Replacement/Repair ( MVR), Aortic Valve Replacement/Repair (AVR) RN TO CONTINUE EDUCATION FROM ``ROAD TO A HEALTH HEART PATIENT EDUCATION MANUAL (GIVEN TO PATIENT IN THE HOSPITAL) MEDICATION RECONCILIATION WITH EDUCATION NEEDED ON FIRST HOME VISIT EMPHASIZE IMPORTANCE OF WEARING BREAST SUPPORT/HEART HUGGER ENCOURAGE USE OF INCENTIVE SPIROMETER 10 X EVERY HOUR WHILE AWAKE ENCOURAGE UTILIZATION OF LOWER EXTREMITY COMPRESSION STOCKINGS/MARK HOSE and ELEVATE LEGS ABOVE LEVEL OF HEART WHILE AT REST. ENCOURAGE AMBULATION 3-5x/day INCREASING TOLERATES, WHILE AVOIDING EXT REMES IN TEMPERATURE FREQUENCY: RN TO OPEN THE PATIENT WITHIN 24 HOURS OF DISCHARGE FROM THE HOSPITAL WITH TELEHEALTH INSTALLED AT [facility] [place], RN TO VISIT 2-3 X A WEEK FOR 4 WEEKS ESTABLISHED BY PATIENT NEEDS. LABORATORY: CBC, CMP TO BE DRAWN ON THE THIRD DAY HOME, (RAN STAT) FAX RESULTS TO [phone]. TELEHEALTH PARAMETERS: WEIGHT: NOTIFY MD OF WEIGHT GAIN OF 2 LBS IN 24 HOURS OR 5 LBS IN ONE WEEK HR: NOTIFY MD OF HR <55 BPM OR HR>100 BPM BP: NOTIFY MD IF BP <90/55 OR BP>140/100 O2 SAT: NOTIFY MD IF PO2<93% ON ROOM AIR SEND TELEHEALTH REPORT TO MEAT BONER AND CARDIOVASCULAR SURGEON THE FIRST WEEK OF CARE AND THEN BI-WEEKLY. PLEASE ADDITIONALLY COMMUNICATE ANY ABNORMALS AND NEW FINDINGS TO THE SURGEONS OFFICE. Discharge Disposition: HOME WITH HOME HEALTH SERVICES
== END 2021-07-24 14:46 | disposition home health service (06) | DRG 221 ==
LOC: 2ORMAIN 05:40 → 2SICU 13:30 → 3SCARD 07-22 17:31
PROVIDERS: ADMIT Thoracic Surgery (Cardiothoracic Vascular Surgery); ATTEND Thoracic Surgery (Cardiothoracic Vascular Surgery)
PROC: 0PB00ZZ Excision of Sternum, Open Approach (ICD-10-PCS; 2021-07-19)
PROC: 5A1221Z Performance of Cardiac Output, Continuous (ICD-10-PCS; 2021-07-19)
PROC: 4A033BC Measurement of Arterial Pressure, Coronary, Percutaneous Approach (ICD-10-PCS; 2021-07-19)
PROC: B246ZZ4 Ultrasonography of Right and Left Heart, Transesophageal (ICD-10-PCS; 2021-07-19)
PROC: 02L70CK Occlusion of Left Atrial Appendage with Extraluminal Device, Open Approach (ICD-10-PCS; 2021-07-19)
PROC: 0W9D30Z Drainage of Pericardial Cavity with Drainage Device, Percutaneous Approach (ICD-10-PCS; 2021-07-19)
PROC: 0W9C30Z Drainage of Mediastinum with Drainage Device, Percutaneous Approach (ICD-10-PCS; 2021-07-19)
PROC: 0W9B30Z Drainage of Left Pleural Cavity with Drainage Device, Percutaneous Approach (ICD-10-PCS; 2021-07-19)
PROC: 30233N1 Transfusion of Nonautologous Red Blood Cells into Peripheral Vein, Percutaneous Approach (ICD-10-PCS; 2021-07-19)
PROC: 6A550Z2 Pheresis of Platelets, Single (ICD-10-PCS; 2021-07-19)
PROC: 4A133B1 Monitoring of Arterial Pressure, Peripheral, Percutaneous Approach (ICD-10-PCS; 2021-07-19)
PROC: 4A133J1 Monitoring of Arterial Pulse, Peripheral, Percutaneous Approach (ICD-10-PCS; 2021-07-19)
PROC: B24BZZ4 Ultrasonography of Heart with Aorta, Transesophageal (ICD-10-PCS; 2021-07-19)
PROC: 02RF08Z Replacement of Aortic Valve with Zooplastic Tissue, Open Approach (ICD-10-PCS; principal; 2021-07-19 08:30)
PROC: 02100Z9 Bypass Coronary Artery, One Artery from Left Internal Mammary, Open Approach (ICD-10-PCS; 2021-07-19 08:30)
PROC: 02100AW Bypass Coronary Artery, One Artery from Aorta with Autologous Arterial Tissue, Open Approach (ICD-10-PCS; 2021-07-19 08:30)
PROC: 03BC4ZZ Excision of Left Radial Artery, Percutaneous Endoscopic Approach (ICD-10-PCS; 2021-07-19 08:30)
DX: I08.3 Combined rheumatic disorders of mitral, aortic and tricuspid valves (principal); I25.10 Atherosclerotic heart disease of native coronary artery without angina pectoris; E03.9 Hypothyroidism, unspecified; N40.0 Benign prostatic hyperplasia without lower urinary tract symptoms; Z28.310 Unvaccinated for COVID-19; I48.0 Paroxysmal atrial fibrillation; N42.9 Disorder of prostate, unspecified; I10 Essential (primary) hypertension; E78.00 Pure hypercholesterolemia, unspecified; R00.0 Tachycardia, unspecified; E78.5 Hyperlipidemia, unspecified; K21.9 Gastro-esophageal reflux disease without esophagitis; I44.0 Atrioventricular block, first degree; R01.1 Cardiac murmur, unspecified; M15.9 Polyosteoarthritis, unspecified; Z79.02 Long term (current) use of antithrombotics/antiplatelets; Z79.82 Long term (current) use of aspirin; Z79.84 Long term (current) use of oral hypoglycemic drugs; Z79.899 Other long term (current) drug therapy; Z82.3 Family history of stroke; Z82.5 Family history of asthma and other chronic lower respiratory diseases; Z86.73 Personal history of transient ischemic attack (TIA), and cerebral infarction without residual deficits; Z87.442 Personal history of urinary calculi; Z87.891 Personal history of nicotine dependence; Z79.890 Hormone replacement therapy; Z91.030 Bee allergy status; Z96.652 Presence of left artificial knee joint
CPT/HCPCS: 36415; 71045; 71046; 80048; 80053; 80061; 80074; 81001; 82330; 82805; 83036; 83735; 84439; 84443; 85025; 85027; 85520; 85610; 85730; 86850; 86891; 86900; 86901; 86920; 87070; 87086; 87635; 88305; 88311; 93922; 93930; 93970; 94002; 94150; 94640; 94760